=== PATIENT | female | born 1975 | race American Indian/Alaskan Native ===

== ENCOUNTER 2016-09-28 15:57 | Emergency (ER) | payer MEDICARE ==
[2016-09-28 16:45] VITALS: BP 149/101
[2016-09-28] MEDS ORDERED: MOTRIN PO ONE (19:27)
--- NOTE | 2016-09-28 19:27 | Emergency Department Report ---
ED Lower Extremity HPI - General Chief Complaint: Extremity Injury, Lower Stated Complaint: LEFT ARM PAIN/LEFT FOOT SWOLLEN/PAIN Time Seen by Provider: 09/28/16 19:04 Source: patient Mode of arrival: Ambulatory Limitations: No Limitations - History of Present Illness Initial Comments: This is a 41-year-old female that presents with left foot/ankle pain approximately 2 weeks. Patient patient stated is a diabetic and had her right hallux toe amputation that was done several years ago. Patient states that ever since the dictation of the hallux toe she started to feel pain in her foot/ ankle. Patient so she decided including swelling to the foot/ankle. Patient denies any numbness or tingling sensation in extremities. Denies shortness of breath or chest pain. Denies nausea or vomiting. Patient stated is seeing her primary care doctor for diabetes control. Patient stated she recently started dry no more than 30 minutes a day starting feeling that his symptoms. Patient denies any calf tenderness. Patient also complains left deltoid pain for several days. Patient stated she was sleeping on her left-sided residual, she has this pain are muscular deltoid area. Patient denies any trauma to the left deltoid and right foot/ankle extremity. Patient denies any numbness or tingling sensation in the upper extremities. Patient describes left foot/ankle and left deltoid pain as aching. Pain level is 8/10 for both. Patient denies any drug allergies. MD Complaint: foot injury (LEFT) -: Gradual, week(s) (2) Severity: moderate Severity scale (0 -10): 8 Improves With: NSAID Worsens With: nothing Associated Symptoms: denies: snap/pop sensation, swelling, numbness, tingling, unable to bear weight, able to partially bear weight, ambulatory - Related Data Home Medications Medication Instructions Recorded Confirmed Last Taken Insulin Aspart [NovoLOG 100 10 units SUB-Q TIDWM 10/07/14 01/31/16 01/30/16 UNITS/ML VIAL] Insulin Glargine [Lantus VIAL] 30 units SUB-Q QHS 10/07/14 01/31/16 01/29/16 HYDROcodone/ACETAMINOPHEN [Cassoday 1 tab PO Q8H PRN 01/31/16 01/31/16 01/30/16 7.5-325 mg TAB] Previous Rx's Medication Instructions Recorded Last Taken Type Oxycodone HCl/Acetaminophen 1 each PO Q6HR PRN #90 tablet 01/31/16 Unknown Rx [Percocet 7.5/325 mg] Cyclobenzaprine HCl [Flexeril 5 MG 5 mg PO TID 5 Days 09/28/16 Unknown Rx TAB] Ibuprofen [Motrin 600 MG tab] 600 mg PO Q8H PRN 3 Days 09/28/16 Unknown Rx Allergies Allergy/AdvReac Type Severity Reaction Status Date / Time No Known Drug Allergies Allergy Unknown Verified 09/28/16 16:38 ED Review of Systems ROS: Stated complaint: LEFT ARM PAIN/LEFT FOOT SWOLLEN/PAIN Other details as noted in HPI Constitutional: denies: chills, fever Eyes: denies: eye pain, eye discharge, vision change ENT: denies: ear pain, throat pain Respiratory: denies: cough, shortness of breath, wheezing Cardiovascular: denies: chest pain, palpitations Endocrine: no symptoms reported Gastrointestinal: denies: abdominal pain, nausea, diarrhea Genitourinary: denies: urgency, dysuria, discharge Musculoskeletal: denies: back pain, joint swelling, arthralgia Skin: denies: rash, lesions Neurological: denies: headache, weakness, paresthesias Psychiatric: denies: anxiety, depression Hematological/Lymphatic: denies: easy bleeding, easy bruising ED Past Medical Hx - Past Medical History Hx Hypertension: No Hx Heart Attack/AMI: No Hx Diabetes: Yes Hx Deep Vein Thrombosis: Yes Hx Pulmonary Embolism: Yes Hx Liver Disease: No Hx Renal Disease: No Hx Seizures: No Hx Asthma: No Additional medical history: MORBID OBESITY - Surgical History Additional Surgical History: x2. R BKA - Social History Smoking Status: Never Smoker Substance Use Type: Alcohol - Medications Home Medications: Home Medications Medication Instructions Recorded Confirmed Last Taken Type Insulin Aspart [NovoLOG 100 10 units SUB-Q TIDWM 10/07/14 01/31/16 01/30/16 History UNITS/ML VIAL] Insulin Glargine [Lantus VIAL] 30 units SUB-Q QHS 10/07/14 01/31/16 01/29/16 History HYDROcodone/ACETAMINOPHEN [Cassoday 1 tab PO Q8H PRN 01/31/16 01/31/16 01/30/16 History 7.5-325 mg TAB] Oxycodone HCl/Acetaminophen 1 each PO Q6HR PRN #90 tablet 01/31/16 Unknown Rx [Percocet 7.5/325 mg] Cyclobenzaprine HCl [Flexeril 5 MG 5 mg PO TID 5 Days 09/28/16 Unknown Rx TAB] Ibuprofen [Motrin 600 MG tab] 600 mg PO Q8H PRN 3 Days 09/28/16 Unknown Rx ED Physical Exam - General Limitations: No Limitations General appearance: alert, in no apparent distress - Head Head exam: Present: atraumatic, normocephalic - Eye Eye exam: Present: normal appearance, PERRL, EOMI Pupils: Present: normal accommodation - ENT ENT exam: Present: normal exam, normal orophraynx, mucous membranes moist, TM's normal bilaterally - Neck Neck exam: Present: normal inspection, full ROM. Absent: tenderness, meningismus, lymphadenopathy - Respiratory Respiratory exam: Present: normal lung sounds bilaterally. Absent: respiratory distress - Cardiovascular Cardiovascular Exam: Present: regular rate, normal rhythm. Absent: systolic murmur, diastolic murmur, rubs, gallop - GI/Abdominal GI/Abdominal exam: Present: soft, normal bowel sounds - Extremities Exam Extremities exam: Present: normal inspection, full ROM, tenderness (left foot), normal capillary refill. Absent: pedal edema, joint swelling, calf tenderness - Back Exam Back exam: Present: normal inspection, full ROM. Absent: tenderness, CVA tenderness (R), CVA tenderness (L) - Neurological Exam Neurological exam: Present: alert, oriented X3, CN II-XII intact, normal gait - Psychiatric Psychiatric exam: Present: normal affect, normal mood - Skin Skin exam: Present: warm, dry, intact, normal color. Absent: rash - Other Other exam information: Left hallux toe amputation. Denies numbness or tingling. Swelling to the left ankle. No erythema. No warmth to touch. Patient is able to move the remaining toes with no complications noted. Pedal pulses present. Denies calf tenderness. No calf tenderness or swelling. No pedal edema presents. ED Course Vital Signs 09/28/16 16:40 Temperature 98.2 F Pulse Rate 87 Respiratory 18 Rate Blood Pressure 149/101 O2 Sat by Pulse 100 Oximetry - Reevaluation(s) Reevaluation #1: 09/28/16 19:39 Patient stated has a hysterectomy. No test obtained due to hx. ED Lower Extremity MDM - Medical Decision Making Ed course: 41-year-old female that presents with left ankle/foot and left deltoid pain 1- patient received a report from 600 mg by mouth in the ED 2- x-ray of the foot/ankle: An expansile lytic lesion w/ near complete involvment of the 2nd distal phalanx. Granulomatous or a neoplastic lesion. 3- patient received x-ray results. No further questions from the patient. 4- I instructed patient to follow up with her primary care doctor in 3-5 days 5- I also instructed the importance of diabetes control 6- at the time of discharge the patient does not seem toxic or ill in appearance. No signs of any distress noted. 7- patient received Flexeril and ibuprofen for pain. I instructed patient not to use heavy machinery while taking Flexeril due to sedation 8- Wells criteria for DVT: 1 point: Low risk group of DVT. "unlikely" according to Wells' DVT studies 9- at the time of discharge the patient agrees to discharge plan and treatment. No further questions noted by the patient. Patient wasn't toxic or ill in appearance during discharge. 10- DAVID applied to left foot/ankle Critical care attestation.: If time is entered above; I have spent that time in minutes in the direct care of this critically ill patient, excluding procedure time. ED Disposition Clinical Impression: Muscle tenderness Left ankle strain Qualifiers: Encounter type: initial encounter Qualified Code(s): S96.912A - Strain of unspecified muscle and tendon at ankle and foot level, left foot, initial encounter Disposition: DISCHARGED TO HOME OR SELFCARE Is pt being admited?: No Does the pt Need Aspirin: No Condition: Stable Instructions: Ibuprofen (By mouth), Muscle Strain (ED), Ankle Exercises (GEN), RICE Therapy (ED) Additional Instructions: Follow-up with your primary care doctor in 3-5 days. Take medications as prescribed. Do not use a machine while taking Flexeril due to sedation. Rest, elevate, ice to extremity Prescriptions: Cyclobenzaprine HCl [Flexeril 5 MG TAB] 5 mg PO TID 5 Days Ibuprofen [Motrin 600 MG tab] 600 mg PO Q8H PRN 3 Days PRN Reason: Pain Referrals: PRIMARY CARE,MD [Primary Care Provider] - 3-5 Days [facility] [Outside] - 3-5 Days [facility] [Outside] - 3-5 Days
--- NOTE | 2016-09-28 20:26 | XRay Report ---
FINAL REPORT PROCEDURE: XR ANKLE 3 LT TECHNIQUE: LEFT ankle radiographs, AP, lateral, and oblique views. CPT 19893 HISTORY: Ankle pain COMPARISON: No prior studies are available for comparison. FINDINGS: Fracture (s) and/or Dislocation(s): None. Alignment: Normal. Joint space(s): Normal. Soft tissues: Diffuse soft tissue swelling is noted. Bone mineralization: Normal. Foreign bodies: None. Calcaneal spurring: Small inferior calcaneal spur is noted. IMPRESSION: No acute abnormality.
--- NOTE | 2016-09-28 20:43 | XRay Report ---
FINAL REPORT PROCEDURE: XR FOOT 3 LT TECHNIQUE: LEFT foot radiographs, AP, lateral, and oblique views. CPT 26217 HISTORY: Foot pain COMPARISON: No prior studies are available for comparison. FINDINGS: S/p amputation of great toe at the level of distal diaphysis of a cement a tarsal. An acute fracture is not identified. There is near complete lytic destruction of 2nd distal phalanx secondary to what appears to be an expansile lytic lesion. Remaining bones and joints are unremarkable IMPRESSION: An expansile lytic lesion with near complete involvement of the 2nd distal phalanx. A granulomatous or a neoplastic lesion is suspected. MRI may be recommended for further evaluation.
== END 2016-09-28 21:25 | disposition home or self-care (01) ==
LOC: ED 15:57
DX: S96.912A Strain of unspecified muscle and tendon at ankle and foot level, left foot, initial encounter (principal); E11.9 Type 2 diabetes mellitus without complications; E66.01 Morbid (severe) obesity due to excess calories; Z86.718 Personal history of other venous thrombosis and embolism; Z86.711 Personal history of pulmonary embolism; Z79.4 Long term (current) use of insulin; X58.XXXA Exposure to other specified factors, initial encounter; Y93.89 Activity, other specified; Y99.8 Other external cause status; Y92.89 Other specified places as the place of occurrence of the external cause
CPT/HCPCS: 99283

== ENCOUNTER 2016-12-29 15:55 | Outpatient (CLI) | payer MEDICARE ==
--- NOTE | 2016-12-30 10:51 | XRay Report ---
RIGHT TIBIA/FIBULA: History: Pain [id number]-[id number]-tics amputation changes are identified. There is no evidence for fracture, bone lesion or bony destruction. Mild heterotopic calcifications are noted. IMPRESSION: Surgical changes as described. No acute bony abnormality.
== END 2016-12-29 15:56 | disposition home or self-care (01) ==
LOC: XRAY 15:55
PROVIDERS: ATTEND Surgery Vascular Surgery
DX: T87.89 Other complications of amputation stump (principal); M25.861 Other specified joint disorders, right knee; E11.9 Type 2 diabetes mellitus without complications; D64.9 Anemia, unspecified

== ENCOUNTER 2017-05-07 08:13 | Day surgery (SDC) | payer MEDICARE ==
[~2017-05-07 08:13] MED LIST: ANCEF/STERILE WATER 2 GM/20 ML 2 GM/20 ML SYRINGE IV NR; NACL 0.9% 1000 ML 1,000 ML IV SCH
--- NOTE | 2017-05-07 09:11 | Anesthesia Consultation ---
Anesthesia Consult and Med Hx Date of service: 05/07/17 - Airway Anesthetic Teeth Evaluation: Good ROM Head & Neck: Adequate Mental/Hyoid Distance: Adequate Mallampati Class: Class II Intubation Access Assessment: Probably Good - Pulmonary Exam CTA: Yes - Cardiac Exam Cardiac Exam: RRR - Pre-Operative Health Status ASA Pre-Surgery Classification: ASA3 Proposed Anesthetic Plan: General - Pulmonary Hx Smoking: Yes (former, quit 6 yrs ago, 1PPD) Hx Asthma: No Hx Sleep Apnea: No - Cardiovascular System Hx Cardia Arrhythmia: No Hx Peripheral Vascular Disease: Yes - Central Nervous System Hx Seizures: No CVA: No Hx Psychiatric Problems: No - Gastrointestinal Hx Gastroesophageal Reflux Disease: No - Endocrine Hx Insulin Dependent Diabetes: Yes Hx Thyroid Disease: No - Hematic Hx Anemia: Yes - Other Systems Hx Alcohol Use: Yes (occas) Hx Cancer: No Hx Obesity: Yes (morbid)
--- NOTE | 2017-05-07 09:11 | Anesthesia Day of Surgery ---
Anesthesia Day of Surgery - Day of Surgery Patient Examined: Yes Patient H&P Reviewed: Yes Patient is NPO: Yes
[2017-05-07] MEDS ORDERED: DILAUDID IV PRN (09:12)
[2017-05-07] MEDS ORDERED: ZOFRAN IV PRN (09:12)
[2017-05-07] MEDS ORDERED: PEPCID PO NR (10:00)
[2017-05-07] MEDS ORDERED: VERSED IV NR (10:00)
[2017-05-07 10:01] LABS: Basophils % (Auto) 0.4 % (0.0-1.8); Eosinophils # (Auto) 0.1 K/mm3 (0.0-0.4); Hematocrit 37.9 % (30.3-42.9); Hemoglobin 12.5 gm/dl (10.1-14.3); Lymphocytes # (Auto) 1.4 K/mm3 (1.2-5.4); Lymphocytes % (Auto) 26.2 % (13.4-35.0); Mean Corpuscular HGB Conc 33 % (30-34); Mean Corpuscular Hemoglobin 30 pg (28-32); Mean Corpuscular Volume 91 fl (79-97); Monocytes # (Auto) 0.5 K/mm3 (0.0-0.8); Monocytes % (Auto) 9.1 % (0.0-7.3); Platelet Count 223 K/mm3 (140-440); Red Blood Count 4.16 M/mm3 (3.65-5.03); Red Cell Distribution Width 13.4 % (13.2-15.2)
[2017-05-07 10:15] LABS: INR 0.91 (0.87-1.13)
[2017-05-07 10:19] LABS: BUN/Creatinine Ratio 27; Blood Urea Nitrogen 16 mg/dL (7-17); Calcium 8.7 mg/dL (8.4-10.2); Hemolysis Index 31
[2017-05-07] MEDS ORDERED: DIPRIVAN 10 MG/ML IV ONE (10:23)
[2017-05-07] MEDS ORDERED: DILAUDID ONE (10:24)
[2017-05-07] MEDS ORDERED: XYLOCAINE MPF 2% ONE (10:24)
[2017-05-07] MEDS ORDERED: ZOFRAN ONE (10:33)
[2017-05-07] MEDS ORDERED: SUBLIMAZE ONE (10:42)
[2017-05-07] MEDS ORDERED: NACL 0.9% IR ONE (10:44)
[2017-05-07] MEDS ORDERED: MARCAINE 0.5% INFILTRATI ONE (11:13)
[2017-05-07] MEDS ORDERED: MARCAINE 0.5% 30 ML INFILTRATI ONE (11:14)
[2017-05-07] MEDS ORDERED: NACL 0.9% 1000 ML 1,000 ML ONE (11:47)
[2017-05-07] MEDS ORDERED: TORADOL ONE (12:06)
--- NOTE | 2017-05-07 12:10 | Short Stay Summary ---
Short Stay Documentation Date of service: 05/07/17 Narrative H&P: See H&P - History H&P: obtained from office - Allergies and Medications Current Medications: Allergies No Known Drug Allergies Allergy (Verified 05/03/17 09:36) Unknown Home Medications Medication Instructions Recorded Confirmed Last Taken Type Insulin Aspart [NovoLOG 100 10 units SUB-Q TIDWM 10/07/14 05/07/17 05/06/17 History UNITS/ML VIAL] Insulin Glargine [Lantus VIAL] 30 units SUB-Q QHS 10/07/14 05/03/17 01/29/16 History Metformin HCl [Metformin HCl] 1,000 mg PO BID 05/03/17 05/03/17 Unknown History Active Medications Hydromorphone HCl (Dilaudid) 0.5 mg IV Q10MIN PRN PRN Reason: Pain , Severe (7-10) Stop: 05/07/17 13:00 Cefazolin Sodium (Ancef/Sterile Water 2 Gm/20 Ml) 2 gm in 20 mls @ 80 mls/hr IV PREOP NR PRN Reason: Protocol Stop: 05/07/17 23:00 Sodium Chloride (Nacl 0.9% 1000 Ml) 1,000 mls @ 42 mls/hr IV DIRECT NARCISA Last Admin: 05/07/17 09:35 Dose: 42 mls/hr Ketorolac Tromethamine (Toradol) 30 mg IV ONCE PRN PRN Reason: Pain, Moderate (4-6) Stop: 05/07/17 12:30 Midazolam HCl (Versed) 2 mg IV PREOP NR Stop: 05/07/17 23:59 Last Admin: 05/07/17 09:35 Dose: 2 mg - Brief post op/procedure progress note Date of procedure: 05/07/17 Pre-op diagnosis: Chronic Right Below-Knee Amputation Pain Post-op diagnosis: same Procedure: Revision of Right Below-Knee Amputation Anesthesia: GETA Surgeon: NIKI MAJOR Estimated blood loss: 50-100ml Pathology: list (bone and soft tissue sent to pathology) Specimen disposition: to lab Condition: stable - Disposition Condition at discharge: Good Disposition: DC-[id number] TO HOME OR SELFCARE Short Stay Discharge Plan Activity: other (do not use prosthesis until incision in completely healed) Weight Bearing Status: Non-Weight Bearing (Rigth BKA Stump) Wound: remove dressing (24 hours), other (Okay to wash the wound with soap and water but do not soak in water) Follow up with: NIKI MAJOR MD [Staff Physician] - 14 Days Prescriptions: Oxycodone HCl/Acetaminophen [Percocet 7.5/325 mg] 1 each PO Q6HR PRN #60 tablet PRN Reason: Pain
[2017-05-07] MEDS ORDERED: TORADOL IV PRN (12:15)
--- NOTE | 2017-05-07 12:16 | Post Anesthesia Evaluation ---
- Post Anesthesia Evaluation Patient Participated: Yes Airway Patent: Yes Stable Respiratory Function: Yes Nausea/Vomiting: No Temp > 96.8F: Yes Pain Manageable: Yes Adequeate Hydration: Yes Anesthesia Complications: No Block Receding Appropriately: Not Applicable Patient on Ventilator: No
--- NOTE | 2017-05-07 12:20 | Operative Report ---
Operative Report Operative Report: Date of Procedure: 05/07/2017 Pre-operative Diagnosis: Chronic Right Below-Knee Amputation Pain Post-operative Diagnosis: Same Procedure(s): 1. Revision of Right Below-Knee Amputation Surgeon: John Archibald M.D. Pencils Washer: None Anesthesia: Gen. Endotracheal Anesthesia EBL: 100 mL Counts: Correct Complications: None Condition: Stable Findings: The tibia was resected medially and anteriorly to a more normal size and contour. Specimen: Right below-knee amputation bone and soft tissue sent to pathology. Indication: The patient is a 41-year-old female with history of diabetes mellitus and a right below-knee amputation that has complained of chronic right BKA stump pain. She had a xray of the stump there revealed ossification of the tissue surrounding the distal end of the tibia. This resulted in pain and tenderness at the distal end of the stump especially when wearing the prosthesis. She is in need of revision. She was given the risk, benefits, and alternative procedures and consented to the procedure. Description of Procedure: The patient was brought to the operating room and laid in supine position. After general endotracheal anesthesia was achieved her right leg was prepped and draped in normal sterile fashion. A longitudinal incision was created on the distal leg centered over the tibia. Cautery was used to carry the incision down to the tibia and the periosteum was entered and elevated using the periosteal elevator. An oscillating saw was then used to bevel the anterior surface of the tibia. Cautery was used to achieve hemostasis on the anterior surface of the exposed tibia. Cautery was then used to expose the ossified tissue medial to the tibia. Once the large area of bone was exposed the oscillating saw was used to transect this bone. The file was used to smooth all edges. The wound was copiously irrigated and then hemostasis was achieved with a combination of direct pressure, cautery, and suture ligation. Once hemostasis was achieved the wound was anesthetized with Marcaine and closed in 3 layers using 2-0 Vicryls, in an interrupted fashion, to reapproximate the deep layers, 3-0 Vicryl in running fashion the deep dermal layers and 4-0 Monocryl in a running fashion subcuticular layers. The skin was then dressed with Dermabond. The leg was then dressed with a loosely wrapped Kerlix and a 4 inch Ashutosh bandage. The patient tolerated the procedure well. All sponge, needle , and his returns were correct. The patient was taken to the recovery area in stable condition.
[2017-05-07 13:19] VITALS: BP 134/87
[2017-05-07] MEDS ORDERED: BENADRYL ONE (13:37)
== END 2017-05-07 08:14 | disposition home or self-care (01) ==
LOC: OR 08:13
PROVIDERS: ATTEND Surgery Vascular Surgery
DX: T87.89 Other complications of amputation stump (principal); E11.51 Type 2 diabetes mellitus with diabetic peripheral angiopathy without gangrene; E66.01 Morbid (severe) obesity due to excess calories; Z68.43 Body mass index [BMI] 50.0-59.9, adult; Z79.01 Long term (current) use of anticoagulants; Z79.899 Other long term (current) drug therapy; Z79.4 Long term (current) use of insulin; Z87.891 Personal history of nicotine dependence; Z98.890 Other specified postprocedural states; Y83.6 Removal of other organ (partial) (total) as the cause of abnormal reaction of the patient, or of later complication, without mention of misadventure at the time of the procedure
CPT/HCPCS: 27886; 36415; 80048; 81025; 82962; 85025; 85610; 88304; 88311; J0690; J1170; J1200; J1885; J2250; J2405; J2704; J3010; J7030; 88305; J1815

== ENCOUNTER 2017-10-16 10:17 | Inpatient (IN) | payer MEDICARE ==
[~2017-10-16 10:17] MED LIST changes: +DILAUDID IV PRN; -NACL 0.9% 1000 ML 1,000 ML IV SCH; +PERCOCET 5/325 PO PRN; +VERSED IV NR; +ZOFRAN IV PRN
[2017-10-16] MEDS: NACL 0.9% 1000 ML 1,000 ML IV SCH ×2 (12:35→22:15)
[2017-10-16] MEDS ORDERED: HumuLIN R IV SCH (12:52)
--- NOTE | 2017-10-16 12:54 | Anesthesia Day of Surgery ---
Anesthesia Day of Surgery - Day of Surgery Patient Examined: Yes Patient H&P Reviewed: Yes Patient is NPO: Yes
--- NOTE | 2017-10-16 12:54 | Anesthesia Consultation ---
Anesthesia Consult and Med Hx Date of service: 10/16/17 - Airway Anesthetic Teeth Evaluation: Poor ROM Head & Neck: Adequate Mental/Hyoid Distance: Adequate Mallampati Class: Class II Intubation Access Assessment: Probably Good - Pulmonary Exam CTA: Yes - Cardiac Exam Cardiac Exam: RRR - Pre-Operative Health Status ASA Pre-Surgery Classification: ASA3 Proposed Anesthetic Plan: General - Pulmonary Hx Smoking: Yes (former, quit 6 yrs ago, 1PPD) - Cardiovascular System Hx Cardia Arrhythmia: No Hx Peripheral Vascular Disease: Yes - Central Nervous System Hx Psychiatric Problems: No - Gastrointestinal Hx Gastroesophageal Reflux Disease: No - Endocrine Hx Insulin Dependent Diabetes: Yes Hx Thyroid Disease: No - Hematic Hx Anemia: Yes - Other Systems Hx Alcohol Use: Yes (occas) Hx Cancer: No Hx Obesity: Yes
[2017-10-16 13:17] LABS: Basophils % (Auto) 0.3 % (0.0-1.8); Eosinophils # (Auto) 0.1 K/mm3 (0.0-0.4); Eosinophils % (Auto) 0.9 % (0.0-4.3); Hematocrit 38.4 % (30.3-42.9); Hemoglobin 12.8 gm/dl (10.1-14.3); Lymphocytes # (Auto) 1.5 K/mm3 (1.2-5.4); Lymphocytes % (Auto) 16.5 % (13.4-35.0); Mean Corpuscular HGB Conc 33 % (30-34); Mean Corpuscular Hemoglobin 30 pg (28-32); Mean Corpuscular Volume 89 fl (79-97); Monocytes # (Auto) 0.6 K/mm3 (0.0-0.8); Monocytes % (Auto) 7.2 % (0.0-7.3); Platelet Count 245 K/mm3 (140-440); Red Cell Distribution Width 13.9 % (13.2-15.2)
[2017-10-16 13:35] LABS: BUN/Creatinine Ratio 20; Blood Urea Nitrogen 10 mg/dL (7-17); Calcium 8.8 mg/dL (8.4-10.2); Hemolysis Index 42
[2017-10-16] MEDS ORDERED: DIPRIVAN 10 MG/ML IV ONE (15:50)
[2017-10-16] MEDS ORDERED: XYLOCAINE MPF 2% ONE (15:51)
[2017-10-16] MEDS ORDERED: MARCAINE 0.5% INFILTRATI ONE (17:08)
[2017-10-16] MEDS ORDERED: MARCAINE 0.5% 30 ML INFILTRATI ONE (17:27)
[2017-10-16] MEDS ORDERED: ZOFRAN ONE (17:29)
--- NOTE | 2017-10-16 17:59 | Operative Report ---
Operative Report Operative Report: Date of procedure: 10/16/2017 Pre-operative diagnosis: Nonhealing Left Diabetic Foot Wound Post-operative diagnosis: Same Procedure(s): 1. Left Transmetatarsal Amputation Surgeon: John Archibald MD Mold Cooler: None Anesthesia: General Endotracheal Anesthesia EBL: Minimal Counts: Correct Complications: None Condition: Stable Findings: All tissue appeared viable and healthy with excellent bleeding tissue and no evidence of infection. 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 Despite local wound care the toes continue to deteriorate. She had noninvasive arterial studies that demonstrate adequate flow having the toes continued to do poorly and it was felt that she would benefit from a transmetatarsal dictation to prevent proximal extension of her infection. She was given the risk, benefits, and alternative procedures and consented to the procedure. Description of Procedure: The patient was brought to the operating room and laid in supine position after general endotracheal anesthesia was achieved was prepped and draped in normal sterile fashion. A transverse incision was then created along the midportion of the metatarsals and carried distally to create a posterior flap. Electrocautery was used to take the dissection down to the metatarsals and the periosteum was then elevated on each metatarsal. The oscillating saw was then used to transect each metatarsal and then electrocautery was used to divide the remaining soft tissue and the specimen was passed off. Cautery was then used to achieve hemostasis within the wound and then a rasp was used to smooth each edge of the bone. The wound was copiously irrigated with saline and then anesthetized with Exparel. The wound was then closed in 2 layers using 2-0 Vicryl to reapproximate the deep dermal layer and kendall in the skin. The wound was then dressed with Xeroform gauze, fluffs, Kerlix, and an Ashutosh bandage. The patient tolerated procedure well all sponge needle and instrument counts correct, the patient was taken to recovery in stable condition.
[2017-10-16] MEDS ORDERED: TYLENOL PO PRN (18:00)
[2017-10-16] MEDS ORDERED: ZOFRAN IV PRN (18:00)
[2017-10-16] MEDS ORDERED: NORCO 5/325 PO PRN (18:00)
[2017-10-16] MEDS ORDERED: SODIUM CHLORIDE FLUSH SYRINGE 10 ML IV PRN (18:00)
[2017-10-16] MEDS ORDERED: NON-FORMULARY (Oxycodone Hcl/Acetaminophen [Percocet 7.5/325 Mg] 1 EACH) PO PRN (18:03)
[2017-10-16] MEDS ORDERED: ROXICODONE PO PRN (18:16)
[2017-10-16] MEDS ORDERED: PERCOCET 5/325 PO PRN (18:16)
[2017-10-16 19:15] LABS: Basophils % (Auto) 0.3 % (0.0-1.8); Eosinophils # (Auto) 0.1 K/mm3 (0.0-0.4); Eosinophils % (Auto) 1.2 % (0.0-4.3); Hematocrit 39.5 % (30.3-42.9); Lymphocytes # (Auto) 1.7 K/mm3 (1.2-5.4); Lymphocytes % (Auto) 23.1 % (13.4-35.0); Mean Corpuscular HGB Conc 33 % (30-34); Mean Corpuscular Hemoglobin 30 pg (28-32); Mean Corpuscular Volume 91 fl (79-97); Monocytes # (Auto) 0.5 K/mm3 (0.0-0.8); Monocytes % (Auto) 7.3 % (0.0-7.3); Platelet Count 258 K/mm3 (140-440); Red Blood Count 4.36 M/mm3 (3.65-5.03); Red Cell Distribution Width 13.5 % (13.2-15.2)
[2017-10-16] MEDS ORDERED: LANTUS SUB-Q SCH (22:00)
[2017-10-16] MEDS ORDERED: NON-FORMULARY (Metformin Hcl [Metformin Hcl] 1,000 MG) PO SCH (22:00)
[2017-10-16] MEDS: HumaLOG SUB-Q SCH (22:18)
[2017-10-16] MEDS: MORPHINE IV PRN (22:20)
[2017-10-16] MEDS: SODIUM CHLORIDE FLUSH SYRINGE 10 ML IV SCH (22:20)
[2017-10-17] MEDS: HumaLOG SUB-Q SCH ×2 (07:14→13:35)
[2017-10-17] MEDS ORDERED: GLUCOPHAGE PO SCH (08:00)
[2017-10-17] MEDS ORDERED: NON-FORMULARY (Insulin Aspart 10 UNITS) SUB-Q SCH (08:00)
[2017-10-17] MEDS: MORPHINE IV PRN (10:46)
[2017-10-17] MEDS: SODIUM CHLORIDE FLUSH SYRINGE 10 ML IV SCH (10:51)
[2017-10-17] MEDS ORDERED: HumaLOG SUB-Q SCH (12:00)
--- NOTE | 2017-10-17 16:04 | Progress Note ---
Assessment and Plan Pt doing well. Bandages changed, and wounds look good. Okay to d/c home. D/c instructions given at the bedside. Pt to f/u in 2 wks. Subjective Date of service: 10/17/17 Interval history: Pt awake and alert. Incisional discomfort well tolerated with analgesics. Objective - Constitutional Vitals: Vital Signs - 12hr 10/17/17 10/17/17 10/17/17 04:18 04:50 07:14 Temperature 98.7 F 98.5 F Pulse Rate 92 H 85 Respiratory 20 18 Rate Blood Pressure 111/65 114/69 O2 Sat by Pulse 98 98 Oximetry 10/17/17 10/17/17 11:16 12:26 Temperature 99.3 F Pulse Rate 82 Respiratory 18 18 Rate Blood Pressure 132/81 O2 Sat by Pulse 97 Oximetry General appearance: Present: no acute distress - EENT Eyes: EOM intact ENT: hearing intact - Neck Neck: supple - Respiratory Respiratory effort: normal Extremities: abnormal (LLE TMA. Incision intact, kendall in place without erythema or drainage) - Neurologic Neurologic: no focal deficits - Psychiatric Psychiatric: appropriate mood/affect, intact judgment & insight, cooperative - Labs CBC & Chem 7: 10/16/17 18:54 10/16/17 12:35 Labs: Abnormal lab results 10/16/17 10/16/17 10/17/17 Range/Units 18:01 21:16 05:34 POC Glucose 218 H 278 H 342 H (70-105) 10/17/17 Range/Units 13:01 POC Glucose 306 H (70-105)
--- NOTE | 2017-10-17 16:09 | Short Stay Summary ---
Short Stay Documentation Date of service: 10/17/17 - Allergies and Medications Current Medications: Allergies No Known Drug Allergies Allergy (Verified 10/12/17 13:13) Unknown Home Medications Medication Instructions Recorded Confirmed Last Taken Type Insulin Aspart [NovoLOG 100 10 units SUB-Q TIDWM 10/07/14 10/12/17 10/15/17 History UNITS/ML VIAL] Insulin Glargine [Lantus VIAL] 30 units SUB-Q QHS 10/07/14 10/16/17 10/14/17 History Metformin HCl 1,000 mg PO BID 05/03/17 10/12/17 10/15/17 History Oxycodone HCl/Acetaminophen 1 each PO Q6HR PRN #60 tablet 05/07/17 10/12/17 Rx [Percocet 7.5/325 mg] Active Medications Acetaminophen (Tylenol) 650 mg PO Q4H PRN PRN Reason: Pain MILD(1-3)/Fever >100.5/OHARA Acetaminophen/Hydrocodone Bitart ([place] 5/325) 2 each PO Q6H PRN PRN Reason: Pain, Moderate (4-6) Sodium Chloride (Nacl 0.9% 1000 Ml) 1,000 mls @ 42 mls/hr IV DIRECT [facility] Last Admin: 10/16/17 22:15 Dose: 42 mls/hr Insulin Glargine (Lantus) 30 units SUB-Q QHS [facility] Last Admin: 10/16/17 22:38 Dose: 30 units Insulin Human Lispro (Humalog) 0 unit SUB-Q ACHS [facility]; Protocol Last Admin: 10/17/17 13:35 Dose: 8 unit Insulin Human Lispro (Humalog) 10 unit SUB-Q [facility] Last Admin: 10/17/17 13:35 Dose: 10 unit Metformin HCl (Glucophage) 1,000 mg PO BIDDIAB [facility] Last Admin: 10/17/17 10:45 Dose: 1,000 mg Morphine Sulfate (Morphine) 2 mg IV Q4H PRN PRN Reason: Pain, Moderate (4-6) Last Admin: 10/17/17 10:46 Dose: 2 mg Ondansetron HCl (Zofran) 4 mg IV Q8H PRN PRN Reason: Nausea And Vomiting Oxycodone HCl (Roxicodone) 2.5 mg PO Q6H PRN PRN Reason: Pain, Moderate (4-6) Oxycodone/Acetaminophen (Percocet 5/325) 1 tab PO Q6H PRN PRN Reason: Pain, Moderate (4-6) Sodium Chloride (Sodium Chloride Flush Syringe 10 Ml) 10 ml IV BID [facility] Last Admin: 10/17/17 10:51 Dose: 10 ml Sodium Chloride (Sodium Chloride Flush Syringe 10 Ml) 10 ml IV PRN PRN PRN Reason: LINE FLUSH - Physical exam Extremities: abnormal (LLE TMA. Incision intact, kendall in place without erythema or drainage) - Brief post op/procedure progress note Procedure: Operative Report Operative Report: Date of procedure: 10/16/2017 Pre-operative diagnosis: Nonhealing Left Diabetic Foot Wound Post-operative diagnosis: Same Procedure(s): 1. Left Transmetatarsal Amputation Surgeon: John Archibald MD Bulk Picker: None Anesthesia: General Endotracheal Anesthesia EBL: Minimal Counts: Correct Complications: None Condition: Stable Findings: All tissue appeared viable and healthy with excellent bleeding tissue and no evidence of infection. 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 Despite local wound care the toes continue to deteriorate. She had noninvasive arterial studies that demonstrate adequate flow having the toes continued to do poorly and it was felt that she would benefit from a transmetatarsal dictation to prevent proximal extension of her infection. She was given the risk, benefits, and alternative procedures and consented to the procedure. - Disposition Condition at discharge: Stable Disposition: DC-01 TO HOME OR SELFCARE - Discharge Diagnoses (1) Diabetic foot infection Status: Acute Short Stay Discharge Plan Activity: advance as tolerated Weight Bearing Status: Partial Weight Bearing (avoid Left fore foot pressure. Use Heel wt bearing shoe to offload pressure from forefoot.) Diet: diabetic Wound: keep clean and dry Follow up with: JOHN ARCHIBALD MD [Staff Physician] - 14 Days
[2017-10-17 17:19] VITALS: BP 136/82
== END 2017-10-17 18:28 | disposition home health service (06) | DRG 240 ==
LOC: OR 10:17 → 3B-SURG 18:26
PROVIDERS: ADMIT Surgery Vascular Surgery; ATTEND Surgery Vascular Surgery
PROC: 0Y6N0ZB Detachment at Left Foot, Partial 2nd Ray, Open Approach (ICD-10-PCS; principal; 2017-10-16)
PROC: 0Y6N0ZC Detachment at Left Foot, Partial 3rd Ray, Open Approach (ICD-10-PCS; 2017-10-16)
PROC: 0Y6N0ZD Detachment at Left Foot, Partial 4th Ray, Open Approach (ICD-10-PCS; 2017-10-16)
PROC: 0Y6N0ZF Detachment at Left Foot, Partial 5th Ray, Open Approach (ICD-10-PCS; 2017-10-16)
DX: E11.51 Type 2 diabetes mellitus with diabetic peripheral angiopathy without gangrene (principal); L97.429 Non-pressure chronic ulcer of left heel and midfoot with unspecified severity; E11.621 Type 2 diabetes mellitus with foot ulcer; L03.032 Cellulitis of left toe; E66.9 Obesity, unspecified; Z89.511 Acquired absence of right leg below knee; Z87.891 Personal history of nicotine dependence; Z79.4 Long term (current) use of insulin
CPT/HCPCS: 36415; 80048; 82962; 85025; 88307; 88311; J0690; J1815; J2250; J2270; J2405; J2704; J7030

== ENCOUNTER 2017-11-20 09:31 | Day surgery (SDC) | payer MEDICARE ==
[~2017-11-20 09:31] MED LIST changes: -DILAUDID IV PRN; +NACL 0.9% 1000 ML 1,000 ML IV SCH; -PERCOCET 5/325 PO PRN; -ZOFRAN IV PRN
[2017-11-20] MEDS ORDERED: NACL BACTERIOSTATIC INFILTRATI ONE (11:21)
[2017-11-20 12:34] LABS: Basophils % (Auto) 0.2 % (0.0-1.8); Eosinophils # (Auto) 0.1 K/mm3 (0.0-0.4); Eosinophils % (Auto) 1.2 % (0.0-4.3); Hematocrit 33.6 % (30.3-42.9); Lymphocytes # (Auto) 1.8 K/mm3 (1.2-5.4); Lymphocytes % (Auto) 21.5 % (13.4-35.0); Mean Corpuscular HGB Conc 33 % (30-34); Mean Corpuscular Hemoglobin 29 pg (28-32); Mean Corpuscular Volume 89 fl (79-97); Monocytes # (Auto) 0.6 K/mm3 (0.0-0.8); Monocytes % (Auto) 6.8 % (0.0-7.3); Platelet Count 348 K/mm3 (140-440); Red Cell Distribution Width 13.4 % (13.2-15.2)
--- NOTE | 2017-11-20 12:39 | Anesthesia Consultation ---
Anesthesia Consult and Med Hx - Airway Anesthetic Teeth Evaluation: Poor ROM Head & Neck: Adequate Mental/Hyoid Distance: Adequate Mallampati Class: Class II Intubation Access Assessment: Probably Good - Pulmonary Exam CTA: Yes - Cardiac Exam Cardiac Exam: RRR - Pre-Operative Health Status ASA Pre-Surgery Classification: ASA2 Proposed Anesthetic Plan: General - Pulmonary Hx Smoking: Yes (former, quit 6 yrs ago) - Cardiovascular System Hx Cardia Arrhythmia: No Hx Peripheral Vascular Disease: Yes - Central Nervous System Hx Psychiatric Problems: No - Gastrointestinal Hx Gastroesophageal Reflux Disease: No - Endocrine Hx Insulin Dependent Diabetes: Yes Hx Thyroid Disease: No - Hematic Hx Anemia: Yes - Other Systems Hx Alcohol Use: Yes (occas) Hx Cancer: No Hx Obesity: Yes
[2017-11-20] MEDS ORDERED: SUBLIMAZE IV PRN (12:40)
[2017-11-20] MEDS ORDERED: ZOFRAN IV PRN (12:40)
--- NOTE | 2017-11-20 12:40 | Anesthesia Day of Surgery ---
Anesthesia Day of Surgery - Day of Surgery Patient Examined: Yes Patient H&P Reviewed: Yes Patient is NPO: Yes Beta Blockers: No Cardiac Clearance: No Pulmonary Clearance: No
[2017-11-20 12:51] LABS: BUN/Creatinine Ratio 18; Blood Urea Nitrogen 9 mg/dL (7-17); Calcium 8.9 mg/dL (8.4-10.2); Hemolysis Index 10
[2017-11-20] MEDS ORDERED: NORCO 10/325 PO ONE (13:00)
[2017-11-20] MEDS ORDERED: LACTATED RINGERS 1,000 ML IV SCH (13:00)
[2017-11-20] MEDS ORDERED: DIPRIVAN 10 MG/ML IV ONE (13:32)
[2017-11-20] MEDS ORDERED: XYLOCAINE MPF 2% ONE (13:32)
[2017-11-20] MEDS ORDERED: SUBLIMAZE ONE (13:32)
[2017-11-20] MEDS ORDERED: NACL 0.9% IR ONE (14:58)
[2017-11-20] MEDS ORDERED: ZOFRAN ONE (15:02)
--- NOTE | 2017-11-20 15:20 | Short Stay Summary ---
Short Stay Documentation Date of service: 11/20/17 Narrative H&P: See H&P - History H&P: obtained from office - Allergies and Medications Current Medications: Allergies No Known Drug Allergies Allergy (Verified 11/16/17 13:40) Unknown Home Medications Medication Instructions Recorded Confirmed Last Taken Type Insulin Aspart [NovoLOG 100 10 units SUB-Q TIDWM 10/07/14 11/20/17 11/19/17 20: 00 History UNITS/ML VIAL] 10 UNITS Insulin Glargine [Lantus VIAL] 30 units SUB-Q QHS 10/07/14 11/20/17 11/19/17 20: 00 History 15 UNITS Metformin HCl 1,000 mg PO BID 05/03/17 11/20/17 11/19/17 History Oxycodone HCl/Acetaminophen 1 each PO Q6HR PRN #40 tablet 10/17/17 11/20/17 Rx [Percocet 10/325 mg] Active Medications Fentanyl (Sublimaze) 50 mcg IV Q5MIN PRN PRN Reason: Pain , Severe (7-10) Stop: 11/20/17 18:00 Cefazolin Sodium (Ancef/Sterile Water 2 Gm/20 Ml) 2 gm in 20 mls @ 80 mls/hr IV PREOP NR; Protocol Stop: 11/20/17 23:59 Lactated Ringer's (Lactated Ringers) 1,000 mls @ 100 mls/hr IV DIRECT [facility] Midazolam HCl (Versed) 2 mg IV PREOP NR Stop: 11/20/17 23:59 Ondansetron HCl (Zofran) 4 mg IV ONCE PRN PRN Reason: Nausea And Vomiting - Brief post op/procedure progress note Date of procedure: 11/20/17 Pre-op diagnosis: Nonhealing Left Transmetatarsal Amputation Post-op diagnosis: same Procedure: 1. Excisional Debridement of Skin and Soft Tissue and Bone of Left Non-Healing Left Transmetatarsal Amputation 2. Wound VAC Placement (Wound Measures 12 x 8 x 3 cm) Anesthesia: FAHADA Surgeon: NIKI MAJOR Estimated blood loss: minimal Pathology: list (skin-muscle bone and soft tissue from left transmetatarsal amputation) Specimen disposition: discarded Condition: stable - Disposition Condition at discharge: Good Disposition: DC- TO HOME OR SELFCARE Short Stay Discharge Plan Activity: other (ambulate with Darco heel weightbearing boot on left foot at all times) Wound: other (wound VAC changes per home health) Follow up with: NIKI MAJOR MD [Staff Physician] - 14 Days Prescriptions: HYDROcodone/APAP 7.5-325 [[place] 7.5/325] 1 each PO Q6HR PRN #40 tablet PRN Reason: Pain
--- NOTE | 2017-11-20 15:23 | Operative Report ---
Operative Report Operative Report: Date of Procedure: 11/20/2017 Pre-operative Diagnosis: Nonhealing Left Transmetatarsal Amputation Post-operative Diagnosis: Same Procedure(s): 1. Excisional Debridement of Skin and Soft Tissue and Bone of Left Non-Healing Left Transmetatarsal Amputation 2. Wound VAC Placement (Wound Measures 12 x 8 x 3 cm) Surgeon: John Archibald M.D. Backroom Associate: None Anesthesia: Gen. endotracheal anesthesia EBL: Minimal Counts: Correct Complications: None Condition: Stable Findings: Necrotic tissue on the plantar lateral image of the wound with exposure of the fifth metatarsal requiring further debridement of the fifth metatarsal. Specimen: Skin muscle and soft tissue as well as a portion of the fifth metatarsal sent to pathology. 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 The transmetatarsal amputation was initially closed however she presented to the office with dehiscence of the wound required debridement and wound VAC placement and now requires further debridement secondary to necrosis of the plantar flap. She was given the risks , benefits, and alternative procedures and has consented to the procedure. Description of Procedure: The patient was brought to the operating room and laid in supine position. After general endotracheal anesthesia was achieved for left foot was prepped and draped in normal sterile fashion. The entire plantar flap was necrosed and nonviable. Curved Mayos were used to transect the posterior flap. The edge of the flap was healthy with excellent bleeding tissue. There was fibrinous exudate along the exposed surface of the open amputation which was sharply debrided with a curet. This was debrided to healthy bleeding tissue. Upon exploration of the remainder of the wound it was discovered that there was necrotic tissue along the plantar lateral surface of the wound which was sharply debrided with curved Mayos requiring debridement of the skin as well as muscle and soft tissue and tendon. Upon debriding this to healthy tissue the fifth metatarsal was now partially exposed and there was no way to cover the exposed portion of the bone. This portion of the bone was not transected with a oscillating saw. The wound was then copiously irrigated and again examined and was determined there was no further nonviable tissue. The VAC was then placed sterilely and the seal was obtained. It was then wrapped with a loose Kerlix. The patient tolerated the procedure well. All sponge, needle, estimate counts were correct. The patient was taken to the recovery area in stable condition.
[2017-11-20] MEDS ORDERED: HumuLIN R ONE (15:29)
[2017-11-20] MEDS ORDERED: HumuLIN R IV ONE (15:35)
[2017-11-20 16:17] VITALS: BP 128/81
== END 2017-11-20 16:45 | disposition home or self-care (01) ==
LOC: OR 09:31
PROVIDERS: ATTEND Surgery Vascular Surgery
DX: T87.81 Dehiscence of amputation stump (principal); E11.51 Type 2 diabetes mellitus with diabetic peripheral angiopathy without gangrene; K21.9 Gastro-esophageal reflux disease without esophagitis; E66.9 Obesity, unspecified; Z98.890 Other specified postprocedural states; Z89.511 Acquired absence of right leg below knee; Z87.891 Personal history of nicotine dependence; Z79.4 Long term (current) use of insulin
CPT/HCPCS: 11044; 36415; 80048; 81025; 82962; 85025; J0690; J2405; J2704; J3010; J7030; J1815

== ENCOUNTER 2017-12-20 09:49 | Outpatient (CLI) | payer MEDICARE ==
[2017-12-20] MEDS ORDERED: XYLOCAINE TOPICAL 4% TP ONE ×2 (10:06→14:55)
[2017-12-20] MEDS ORDERED: DAKIN'S FULL STRENGTH ONE (10:17)
[2017-12-20] MEDS ORDERED: DAKIN'S FULL STRENGTH TP ONE (14:55)
== END 2017-12-20 09:50 | disposition home or self-care (01) ==
LOC: WOUND 09:49
PROVIDERS: ATTEND Surgery
DX: T87.89 Other complications of amputation stump (principal); E11.40 Type 2 diabetes mellitus with diabetic neuropathy, unspecified; E11.51 Type 2 diabetes mellitus with diabetic peripheral angiopathy without gangrene; Z89.511 Acquired absence of right leg below knee; Z87.891 Personal history of nicotine dependence; Z68.43 Body mass index [BMI] 50.0-59.9, adult; Y83.5 Amputation of limb(s) as the cause of abnormal reaction of the patient, or of later complication, without mention of misadventure at the time of the procedure
CPT/HCPCS: 11044; 11047; 88304; 88311; G0463

== ENCOUNTER 2018-06-18 11:00 | Outpatient (CLI) | payer MEDICARE | END 2018-06-18 11:01 | disposition home or self-care (01) | LOC: SLR 11:00 | PROVIDERS: ATTEND Specialist | DX: G47.30 Sleep apnea, unspecified (principal); E11.9 Type 2 diabetes mellitus without complications; E66.01 Morbid (severe) obesity due to excess calories; Z87.891 Personal history of nicotine dependence | CPT/HCPCS: 95810 ==

== ENCOUNTER 2018-08-12 09:57 | Outpatient (CLI) | payer MEDICARE ==
--- NOTE | 2018-08-12 11:37 | Ultrasound Report ---
ULTRASOUND GUIDED NEEDLE CORE BIOPSY LEFT BREAST WITH CLIP PLACEMENT: 08/12/18 10:30:00 CLINICAL: Subareolar left breast mass. COMPARISON :[facility] 06/24/18 mammogram and left breast ultrasound FINDINGS: The procedure was explained to the patient and informed consent was obtained. Ultrasound demonstrated the previously described subareolar solid hypoechoic mass measuring approximately 4.2 x 0.9 x 4.0 cm. I marked the breast with a felt tip marker and a time out was called. The skin was prepped with Betadine and anesthetized with 1% lidocaine. I attempted to aspirate the lesion with an 18-gauge needle but no fluid could be aspirated. Needle core biopsy was performed through a tiny dermatotomy using ultrasound guidance, 2% lidocaine with epinephrine for deep anesthesia and a 14-gauge Achieve biopsy device. 4 cores were obtained and placed in formalin. A clip was deployed within the mass. The patient tolerated the procedure well and there were no apparent complications. Hemostasis was achieved with minimal pressure and a sterile dressing was applied. A two view mammogram demonstrated concordant clip deployment. She left the department in good condition and was given instructions for wound care and followup. IMPRESSION: Uncomplicated ultrasound guided needle core biopsy with clip placement left breast.
--- NOTE | 2018-08-12 11:51 | Mammography Report ---
LEFT DIGITAL DIAGNOSTIC MAMMOGRAM: 08/12/18 09:57:00 CLINICAL: For clip placement immediately status post ultrasound biopsy. 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 COMPARISON:06/24/18 [facility] mammogram and ultrasound and [facility] mammogram and ultrasound from 08/27/14. FINDINGS: A new biopsy clip is now identified within a larger and apparently separate subareolar mass.A second biopsy clip correlates with the previous biopsy and there is no distinct mass associated with it. IMPRESSION: Concordant clip placement status post ultrasound biopsy. BI-RADS CATEGORY: 4--Suspicious Pathology pending.
== END 2018-08-12 09:58 | disposition home or self-care (01) ==
LOC: SPVWC 09:57
PROVIDERS: ATTEND Surgery
DX: N61.0 Mastitis without abscess (principal); R92.0 Mammographic microcalcification found on diagnostic imaging of breast
CPT/HCPCS: 88305; 88312

== ENCOUNTER 2018-09-03 06:32 | Day surgery (SDC) | payer MEDICARE ==
[2018-09-03] MEDS ORDERED: NACL 0.9% 1000 ML 1,000 ML IV SCH (10:00)
[2018-09-03] MEDS ORDERED: DIPRIVAN 10 MG/ML IV ONE (11:38)
[2018-09-03] MEDS ORDERED: VERSED IV ONE (11:38)
[2018-09-03 12:31] VITALS: BP 122/81
--- NOTE | 2018-09-03 12:52 | Anesthesia Day of Surgery ---
Anesthesia Day of Surgery - Day of Surgery Patient Examined: Yes Patient H&P Reviewed: Yes Patient is NPO: Yes Beta Blockers: No
--- NOTE | 2018-09-03 12:54 | Anesthesia Consultation ---
Anesthesia Consult and Med Hx Date of service: 09/03/18 - Airway Anesthetic Teeth Evaluation: Good ROM Head & Neck: Adequate Mental/Hyoid Distance: Adequate Mallampati Class: Class III Intubation Access Assessment: Good - Pulmonary Exam CTA: Yes - Cardiac Exam Cardiac Exam: No Murmur - Pre-Operative Health Status ASA Pre-Surgery Classification: ASA3 Proposed Anesthetic Plan: MAC - Pulmonary Hx Smoking: Yes (former, quit 6 yrs ago) Hx Asthma: No Hx Respiratory Symptoms: No SOB: No COPD: No Home Oxygen Therapy: No Hx Pneumonia: No Hx Sleep Apnea: Yes - Cardiovascular System Hx Hypertension: No Hx Coronary Artery Disease: No Hx Heart Attack/AMI: No Hx Angina: No Hx Percutaneous Transluminal Coronary Angioplasty (PTCA): No Hx Cardia Arrhythmia: No Hx Peripheral Vascular Disease: Yes - Central Nervous System Hx Psychiatric Problems: No - Gastrointestinal Hx Gastroesophageal Reflux Disease: No - Endocrine Hx Insulin Dependent Diabetes: Yes Hx Thyroid Disease: No - Hematic Hx Anemia: Yes - Other Systems Hx Alcohol Use: Yes (occas) Hx Cancer: No Hx Obesity: Yes
== END 2018-09-03 06:33 | disposition home or self-care (01) ==
LOC: GIO 06:32
PROVIDERS: ATTEND Specialist
DX: K21.0 Gastro-esophageal reflux disease with esophagitis (principal); K30 Functional dyspepsia; K44.9 Diaphragmatic hernia without obstruction or gangrene; E66.01 Morbid (severe) obesity due to excess calories; E11.69 Type 2 diabetes mellitus with other specified complication; E11.40 Type 2 diabetes mellitus with diabetic neuropathy, unspecified; E11.39 Type 2 diabetes mellitus with other diabetic ophthalmic complication; E11.51 Type 2 diabetes mellitus with diabetic peripheral angiopathy without gangrene; G47.30 Sleep apnea, unspecified; Z98.51 Tubal ligation status; Z98.891 History of uterine scar from previous surgery; Z79.899 Other long term (current) drug therapy; Z87.891 Personal history of nicotine dependence; Z79.84 Long term (current) use of oral hypoglycemic drugs; Z79.4 Long term (current) use of insulin; Z68.43 Body mass index [BMI] 50.0-59.9, adult; Z91.19 Patient's noncompliance with other medical treatment and regimen; Z87.440 Personal history of urinary (tract) infections; Z86.718 Personal history of other venous thrombosis and embolism; Z72.89 Other problems related to lifestyle; Z98.890 Other specified postprocedural states; Z86.2 Personal history of diseases of the blood and blood-forming organs and certain disorders involving the immune mechanism
CPT/HCPCS: 43235; 82962; J2250; J2704; J7030

== ENCOUNTER 2018-11-14 02:07 | Inpatient (IN) | payer MEDICARE ==
[2018-11-14] MEDS ORDERED: ZOFRAN IV ONE (02:44)
[2018-11-14] MEDS ORDERED: NACL 0.9% 500 ML 500 ML IV ONE ×2 (02:45→04:38)
[2018-11-14] MEDS ORDERED: HumuLIN R IV ONE ×2 (02:45→05:10)
--- NOTE | 2018-11-14 02:46 | Emergency Department Report ---
ED General Adult HPI - General Chief complaint: Weakness Stated complaint: RT SIDE WEAKNESS Time Seen by Provider: 11/14/18 02:31 Source: patient, EMS (ems notes not available at time of chart dictation), RN notes reviewed, old records reviewed Mode of arrival: Stretcher Limitations: Physical Limitation - History of Present Illness Initial comments: Primary care Dr.: Dr. Benjamín Baird Past medical history: Morbid obesity, peripheral artery disease, type 2 diabetes, bilateral lower extremity amputations with prostheses This is a 43-year-old female. The patient is not known to this provider previously. The patient presents to the emergency room today with multiple complaints. Her first complaint is nausea and vomiting. This has been intermittent over the past week and a half. Patient reportedly admitted to [facility] last week, and reports staying in the hospital for a few days. She may been treated for urinary tract infection. She is not certain. She reports multiple episodes of nausea and vomiting, including black emesis, which started today. She also describes diffuse abdominal cramping. She also describes shortness of breath, lightheadedness, dizziness, and feeling like she might pass out. She also describes right upper extremity weakness and numbness. She believes that this started at 10:00 PM. The weakness and numbness is constant. It worsens with range of motion. It decreases with rest. -: Gradual, Sudden Location: abdomen, right, lower extremity Radiation: non-radiation Quality: aching Consistency: intermittent Improves with: rest Worsens with: movement - Related Data Home Medications Medication Instructions Recorded Confirmed Last Taken Insulin Aspart [NovoLOG 100 10 units SUB-Q TIDWM 10/07/14 11/14/18 09/02/18 UNITS/ML VIAL] Insulin Glargine [Lantus VIAL] 30 units SUB-Q QHS 10/07/14 11/14/18 09/02/18 Metformin HCl [metFORMIN] 1,000 mg PO BID 05/03/17 11/14/18 09/02/18 Allergies Allergy/AdvReac Type Severity Reaction Status Date / Time No Known Drug Allergies Allergy Unknown Verified 11/16/17 13:40 ED Review of Systems ROS: Stated complaint: RT SIDE WEAKNESS Other details as noted in HPI Constitutional: malaise, other Eyes: denies: vision change ENT: denies: epistaxis Respiratory: shortness of breath. denies: cough Cardiovascular: other (patient endorses near syncope) Gastrointestinal: nausea, vomiting, other (describes black emesis) Genitourinary: denies: dysuria Musculoskeletal: arthralgia, myalgia Skin: denies: lesions Neurological: weakness, numbness Psychiatric: anxiety ED Past Medical Hx - Past Medical History Previous Medical History?: Yes Hx Hypertension: No Hx Heart Attack/AMI: No Hx Diabetes: Yes Hx Deep Vein Thrombosis: Yes Hx Asthma: No Hx COPD: No Additional medical history: MORBID OBESITY - Surgical History Past Surgical History?: Yes Additional Surgical History: x2. R BKA - Social History Smoking Status: Never Smoker Substance Use Type: Alcohol - Medications Home Medications: Home Medications Medication Instructions Recorded Confirmed Last Taken Type Insulin Aspart [NovoLOG 100 10 units SUB-Q TIDWM 10/07/14 11/14/18 09/02/18 History UNITS/ML VIAL] Insulin Glargine [Lantus VIAL] 30 units SUB-Q QHS 10/07/14 11/14/18 09/02/18 History Metformin HCl [metFORMIN] 1,000 mg PO BID 05/03/17 11/14/18 09/02/18 History ED Physical Exam - General Limitations: Physical Limitation General appearance: alert, anxious, obese - Head Head exam: Present: atraumatic, normocephalic - Eye Eye exam: Present: normal appearance, EOMI, other (visual acuity intact to finger counting, color perception, reading at a close distance). Absent: nystagmus - ENT ENT exam: Present: normal exam, normal orophraynx, mucous membranes moist, normal external ear exam - Neck Neck exam: Present: normal inspection, full ROM - Respiratory Respiratory exam: Present: normal lung sounds bilaterally. Absent: respiratory distress - Cardiovascular Cardiovascular Exam: Present: regular rate, normal rhythm, normal heart sounds. Absent: bradycardia, tachycardia, irregular rhythm, systolic murmur, diastolic murmur, rubs, gallop - GI/Abdominal GI/Abdominal exam: Present: soft. Absent: distended, tenderness, guarding, rebound, rigid, pulsatile mass - Rectal Rectal exam: Present: normal inspection, normal rectal tone, heme (-) stool, other (chaperoned by nurse Lee Stroud). Absent: heme (+) stool, black stool, bloody stool - Extremities Exam Extremities exam: Present: normal inspection, full ROM, other (2+ pulses noted in the bilateral upper extremities. Lower extremity bilateral below-knee amputations. No redness, pus or streaking.) - Back Exam Back exam: Present: normal inspection, full ROM. Absent: tenderness, CVA tenderness (R), CVA tenderness (L), paraspinal tenderness, vertebral tenderness - Neurological Exam Neurological exam: Present: alert, oriented X3, motor sensory deficit (there is 4 out of 5 strength right upper extremity. Decreased sensation to light touch right upper extremity.), other (there is no facial droop. The tongue is midline. Extraocular movements are intact bilaterally. 5 out of 5 strength liya ateral lower extremities. Sensation intact to light touch bilateral lower extremities. 5 out of 5 strength left upper extremity. Sensation intact to light touch left upper extremity.) - Psychiatric Psychiatric exam: Present: anxious - Skin Skin exam: Present: warm, dry, intact, normal color. Absent: rash ED Course Vital Signs 11/14/18 11/14/18 11/14/18 02:28 02:30 03:30 Temperature 98.2 F Pulse Rate 94 H 92 H Respiratory 12 13 Rate Blood Pressure 160/100 168/99 148/93 Blood Pressure 160/100 [Left] O2 Sat by Pulse 99 98 Oximetry 11/14/18 11/14/18 11/14/18 04:30 05:00 05:30 Temperature Pulse Rate 98 H 101 H 92 H Respiratory 12 12 13 Rate Blood Pressure 158/97 131/92 154/91 Blood Pressure [Left] O2 Sat by Pulse 97 Oximetry 11/14/18 11/14/18 11/14/18 05:51 06:00 06:11 Temperature Pulse Rate 93 H 93 H 95 H Respiratory 12 13 18 Rate Blood Pressure 130/86 128/78 128/78 Blood Pressure [Left] O2 Sat by Pulse 96 97 98 Oximetry 11/14/18 06:37 Temperature 98.0 F Pulse Rate Respiratory 18 Rate Blood Pressure 134/92 Blood Pressure [Left] O2 Sat by Pulse Oximetry - Reevaluation(s) Reevaluation #1: 11/14/18 04:06 Differential diagnosis, including not limited to: Subacute stroke, diabetic ketoacidosis, hyperosmolar state, gastroparesis, upper GI bleed, pneumonia, acute coronary syndrome, pulmonary embolus, renal colic, kidney infection, obstruction Assessment and plan: 43-year-old female with multiple complaints, including right upper extremity weakness, numbness, nausea, vomiting, question black emesis, generalized weakness, shortness of breath and lightheadedness. Patient has an NIH score of 2 on my examination. Not a TPA candidate given low NIH score, question upper GI bleed, hyperglycemia, and patient presented to this emergency room at 4 hours and 15 minutes into her symptom onset. It was not possible to complete all of her diagnostics within a 15 minute window. A noncontrast CT scan of the brain suggests a subacute right-sided cerebellar infarct, thus, if TPA were administered, patient would have a high risk of hemorrhagic transformation. Given her recent hospitalization she is at risk for pulmonary embolism, and therefore may require CT angiogram of the chest to exclude pulmonary embolus. Currently, MRI, MRA not available. Patient seen in consultation with my stroke neurology colleague, Dr. Lacy who agrees the patient noted a TPA candidate, a nd agrees that presentation unlikely to be consistent with large vessel occlusion, and does not recommend emergent CT angiogram at this time. CT scan of the abdomen pelvis pending at this time. Urinalysis is pending at this time. Neurology okay with antiplatelet therapy, assuming no contraindic ations demonstrated on aforementioned diagnostic studies. Patient will be given nausea medicine, fluids, and insulin for her nausea, vomiting, and hyperglycemia. We will admit the patient to the medical service once initial diagnostics have resulted. 11/14/18 05:55 Reevaluation #2: 11/14/18 04:40 Elevated troponin reviewed and appreciated. Patient not endorsing chest pain. Stroke neurology is okay with aspirin therapy at this point in time. Patient does not appear to be in any acute distress, and she is speaking on face time on the side of the phone. Lactic acidosis reviewed and appreciated, likely secondary to dehydration, nausea vomiting, which are both likely secondary to her subacute cerebellar stroke, and probable hyperglycemia/gastroparesis Urinalysis pending at this time. CT abdomen and pelvis interpretation pending at this time. Hospital physician paged to arrange admission. Do not suspect acute bacterial illness at this point in time. Reevaluation #3: 11/14/18 04:53 Dr Nguyen to admit will defer to inpatient team to follow up on cta chest Elevated d-dimer reviewed and appreciated, however, given obvious risks of anticoagulation in the context of presumed subacute stroke, including hemorrhagic transformation, we will need objective imaging studies back before we can make a determination as to the risk-benefit ratio of systemic anticoagulation. 11/14/18 05:28 CT scan of the abdomen and pelvis negative for acute disease. Patient faced timing on a cellular phone, and does not appear to be in any acute distress at this time. 11/17/18 01:21 ED Medical Decision Making - Lab Data Result diagrams: 11/16/18 04:53 11/16/18 04:53 Vital Signs 11/14/18 02:28 Temperature 98.2 F Pulse Rate 94 H Respiratory 12 Rate Blood Pressure 160/100 Blood Pressure 160/100 [Left] O2 Sat by Pulse 99 Oximetry Labs 11/14/18 11/14/18 02:56 03:39 WBC 9.8 RBC 4.86 Hgb 14.9 H Hct 44.8 H MCV 92 MCH 31 MCHC 33 RDW 14.6 Plt Count 215 Lymph % (Auto) 10.0 L [place] % (Auto) 5.2 Eos % (Auto) 0.1 Baso % (Auto) 0.1 Lymph # 1.0 L [place] # 0.5 Eos # 0.0 Baso # 0.0 Seg Neutrophils % 84.6 H Seg Neutrophils # 8.3 H POC Glucose 399 H - EKG Data -: EKG Interpreted by Me EKG shows normal: sinus rhythm Rate: normal - EKG Data When compared to previous EKG there are: previous EKG unavailable 11/14/18 04:04 EKG shows a sinus rhythm, 92 bpm, left axis deviation, left anterior fascicular block, QTC prolonged, poor R wave progression, this is an abnormal EKG, his EKG is not consistent with ST elevation myocardial infarction. There is no prior EKG available for Comparison currently. - Radiology Data Radiology results: report reviewed, image reviewed interpreted by me: X-ray of the chest shows poor inspiratory effort, enlarged cardiac silhouette, no obvious gross disease. Noncontrast CT scan of the brain shows no bleed. Cytotoxic edema noted in the right hemisphere of the cerebellum, suggesting high likelihood of recent ischemic stroke. Critical Care Time: Yes Critical care time in (mins) excluding proc time.: 35 Critical care attestation.: If time is entered above; I have spent that time in minutes in the direct care of this critically ill patient, excluding procedure time. ED Disposition Clinical Impression: Stroke, Hyperglycemia, Nausea and vomiting, Shortness of breath Disposition: DC-09 OP ADMIT IP TO THIS HOSP Is pt being admited?: Yes Does the pt Need Aspirin: Yes Condition: Fair
--- NOTE | 2018-11-14 03:01 | Emergency Department Report ---
ED Neuro Deficit HPI - General Chief Complaint: Weakness Stated Complaint: RT SIDE WEAKNESS Time Seen by Provider: 11/14/18 02:31 Source: patient, RN/MD, EMS Mode of arrival: Stretcher Limitations: Physical Limitation - History of Present Illness Initial Comments: [facility] Date of service: 11/14/2018 Impression: 43 year old female who presents with right numbness and weakness in the setting of uncontrolled diabetes. Symptom may be due to stroke possibly hyperglycemia Not a tpa candidate due to: Last seen normal more than 4.5 hours Does not meet LVO screening criteria (no aphasia, neglect, gaze deviation, dense hemiparesis, or visual field deficits on exam), therefore advanced imaging is not indicated. Comments: Door Time: 2:13 [employer] contacted: 2:46 [employer] at bedside: 2:51 NIHSS assessment start time (time the consultation begins): Last known well time (LKW): 22:00 Recommendations: Start antiplatelet if no obvious contraindication Stroke protocol admission/ orderset suggested with placement on stroke floor tele monitoring Bedside swallow evaluation HOB less than 30 degrees IV Fluid hydration with NS Euglycemia avoid hyperthermia, PRN acetaminophen dvt ppx If CT PE shows large PE then recommend risk/benefit discussion regarding starting anticoagulation because of increased risk of bleeding into cerebellar infarct. If CT PE shows small segmental or subsegmental PE then recommend waiting 48 hours before starting anticoagulation if respiratory status is stable. Consider inpatient neurology consultation Discussed with ED MD Please call with questions --- ------ CC: Stroke alert History of Present Illness Patient is a43 year old female with a history of poorly controlled diabetes, PAD s/p bilateral amputations, and morbid obesity who presents with multiple complaints including, abdominal pain, shortness of breath, and right arm weakness and numbness which started around 10pm last night. She also noted some dark emesis. Diagnostic: CT brain w/o contrast: Right cerebellar infarct Exam: Mental Status: Awake, alert, oriented Naming: Intact Repetition: Intact Speech: fluent Cranial Nerves: Pupils: Equal round and reactive to light Extraocular movements: Intact in all cardinal gaze Ptosis: Absent Visual cross: Intact to finger counting Facial sensation: Intact to pin and light touch Facial movements: Intact and symmetric Motor Exam: No drift Tremor/Abnormal Movements: Resting tremor: Absent Intention tremor: Absent Postural tremor: Absent Sensory Exam: Light touch: Intact Pinprick: Intact Coordination: Finger to nose:mild ataxia on right NIHSS score: 1 Medical Decision Making: - Extensive number of diagnosis or management options are considered above. - Extensive amount of complex data reviewed. - High risk of complication and/or morbidity or mortality are associated with differential diagnostic considerations above. - There may be Uncertain outcome and increased probability of prolonged functional impairment or high probability of severe prolonged functional im pairment associated with some of these differential diagnosis. Medical Data Reviewed: 1.Data reviewed include clinical labs, radiology,Medical Tests; 2.Tests results discussed w/performing or interpreting physician; 3.Obtaining/reviewing old medical records; 4.Obtaining case history from another source; 5.Independent review of image, tracing or specimen. Patient was informed the Neurology Consult would happen via TeleHealth consult by way of interactive audio and video telecommunications and consented to receiving care in this manner. Last Observed Normal: 22:00 Presenting Symptoms: Present: Weak/Paralyzed One Side - Related Data Home Medications: Home Medications Medication Instructions Recorded Confirmed Last Taken Insulin Aspart [NovoLOG 100 10 units SUB-Q TIDWM 10/07/14 09/03/18 09/02/18 UNITS/ML VIAL] Insulin Glargine [Lantus VIAL] 30 units SUB-Q QHS 10/07/14 09/03/18 09/02/18 Metformin HCl [metFORMIN] 1,000 mg PO BID 05/03/17 09/03/18 09/02/18 Allergies/Adverse Reactions: Allergies Allergy/AdvReac Type Severity Reaction Status Date / Time No Known Drug Allergies Allergy Unknown Verified 11/16/17 13:40 ED Review of Systems ROS: Stated complaint: RT SIDE WEAKNESS Other details as noted in HPI ED Past Medical Hx - Past Medical History Previous Medical History?: Yes Hx Hypertension: No Hx Heart Attack/AMI: No Hx Diabetes: Yes Hx Deep Vein Thrombosis: Yes Hx Asthma: No Hx COPD: No Additional medical history: MORBID OBESITY - Surgical History Past Surgical History?: Yes Additional Surgical History: x2. R BKA - Social History Smoking Status: Never Smoker Substance Use Type: Alcohol - Medications Home Medications: Home Medications Medication Instructions Recorded Confirmed Last Taken Type Insulin Aspart [NovoLOG 100 10 units SUB-Q TIDWM 10/07/14 09/03/18 09/02/18 History UNITS/ML VIAL] Insulin Glargine [Lantus VIAL] 30 units SUB-Q QHS 10/07/14 09/03/18 09/02/18 History Metformin HCl [metFORMIN] 1,000 mg PO BID 05/03/17 09/03/18 09/02/18 History ED Neuro Physical Exam - General Limitations: Physical Limitation Suspected Stroke: Yes - NIHSS Assessment Interval: Baseline 1a. Level of Consciousness: alert/keenly responsive 1b. LOC Questions: answers both correctly 1c. LOC Commands: performs tasks correctly 2. Best Gaze: normal 3. Visual: no visual loss 4. Facial Palsy: normal symmetrical movement 5b. Motor Arm Right: no drift 5a. Motor Arm Left: no drift 6a. Motor Leg Left: no drift 6b. Motor Leg Right: no drift 7. Limb Ataxia: present 1 limb 8. Sensory: normal 9. Best Language: no aphasia 10. Dysarthria: normal 11. Extinction/Inattention: no abnormality Total Score: 1 Stroke Severity: Minor Stroke ED Course Vital Signs 11/14/18 02:28 Temperature 98.2 F Pulse Rate 94 H Respiratory 12 Rate Blood Pressure 160/100 Blood Pressure 160/100 [Left] O2 Sat by Pulse 99 Oximetry - Lab Data Lab Results 11/14/18 Range/Units 02:56 POC Glucose 399 H (70-105) Critical care attestation.: If time is entered above; I have spent that time in minutes in the direct care of this critically ill patient, excluding procedure time. ED Disposition Clinical Impression: Stroke Disposition: DC-09 OP ADMIT IP TO THIS HOSP Is pt being admited?: Yes Condition: Stable
[2018-11-14 03:53] LABS: Basophils % (Auto) 0.1 % (0.0-1.8); Eosinophils % (Auto) 0.1 % (0.0-4.3); Hematocrit 44.8 % (30.3-42.9); Hemoglobin 14.9 gm/dl (10.1-14.3); Mean Corpuscular HGB Conc 33 % (30-34); Mean Corpuscular Volume 92 fl (79-97); Monocytes # (Auto) 0.5 K/mm3 (0.0-0.8); Monocytes % (Auto) 5.2 % (0.0-7.3); Platelet Count 215 K/mm3 (140-440); Red Blood Count 4.86 M/mm3 (3.65-5.03); Red Cell Distribution Width 14.6 % (13.2-15.2)
[2018-11-14 04:18] LABS: INR 0.94 (0.87-1.13)
[2018-11-14 04:19] LABS: Partial Thromboplastin Time 23.8 Sec. (24.2-36.6)
[2018-11-14 04:20] LABS: Thrombin Time 17.4 Sec. (15.1-19.6)
[2018-11-14 04:22] LABS: Creatine Kinase MB 8.4 ng/mL (0.0-4.0)
[2018-11-14 04:23] LABS: Alanine Aminotransferase 9 units/L (7-56); Albumin 3.7 g/dL (3.9-5); BUN/Creatinine Ratio 16; Blood Urea Nitrogen 13 mg/dL (7-17); Calcium 9.5 mg/dL (8.4-10.2); Hemolysis Index 12
[2018-11-14] MEDS ORDERED: BABY ASPIRIN PO ONE (04:42)
--- NOTE | 2018-11-14 04:44 | XRay Report ---
PROCEDURE: XR CHEST 1V AP TECHNIQUE: Chest radiograph single view. HISTORY: sob COMPARISONS: CT abdomen pelvis of the same date . FINDINGS: No mediastinal shift. Cardiac silhouette is not enlarged. No pneumothorax, effusion, or focal pulmona ry opacity identified. No acute skeletal findings. IMPRESSION: No acute pulmonary finding identified. This document is electronically signed by Olivier Mueller MD., November 14 2018 04:42:36 AM ET
--- NOTE | 2018-11-14 05:19 | Cat Scan Report ---
PROCEDURE: CT ABDOMEN PELVIS WO CON TECHNIQUE: CT imaging of the abdomen and pelvis without contrast HISTORY: n/v weak COMPARISONS: None FINDINGS: Imaged intrathoracic contents are unremarkable. Kidneys are normal in size, axis and position. No hydronephrosis or nephrolithiasis. The ureters are normal in course and caliber. No stones are seen within the urinary bladder. Anteverted uterus. Multi ple pelvic phleboliths. No free fluid in the pelvis. Subcentimeter layering calcified cholelithiasis without pericholecystic inflammatory findings. The li danyell, pancreas, spleen, and adrenal glands demonstrate an unremarkable noncontrast appearance. Hollow enteric organs are normal in course and caliber. Appendix is normal. No intra-abdominal free a ir/fluid or lymphadenopathy. Aorta is normal in course and caliber. Superficial soft tissues are unremarkable. No acute or aggressive appearing skeletal findings. IMPRESSION: No acute findings in the abdomen or pelvis. Cholelithiasis. This document is electronically signed by Olivier Mueller MD., November 14 2018 05:17:07 AM ET
[2018-11-14 05:36] LABS: Amorphous Crystals,Urine 1+; Bilirubin,Urine NEG (Negative); Blood,Urine SM (Negative); Color,Urine Yellow (Yellow); Protein,Urine <15 mg/dL mg/dL (Negative); RBC,Urine < 1.0 /HPF (0.0-6.0); Urobilinogen,Urine < 2.0 mg/dL (<2.0)
[2018-11-14] MEDS ORDERED: D50W (25GM) Syringe IV PRN (05:36)
--- NOTE | 2018-11-14 05:42 | History and Physical Report ---
History of Present Illness Date of examination: 11/14/18 Date of admission: 11/14/2018 Chief complaint: Generalized weakness History of present illness: Patient is a 43-year-old female with PMHx of Morbid obesity, peripheral artery disease, type 2 diabetes, bilateral lower extremity amputations with prostheses We'll presents to the ER today with complaints of weakness, nausea and vomiting. She has states that she has been keeping it strict liquid diet, she only eats tomato soup, sugar-free drink and Jelo. Patient states that she does not check her blood sugar at home, she only takes the insulin once a day. Patient states that for the past 2 days she has been running out of insulin and had not taken any. Patient also reported that she had been admitted to [facility] last week, where she was treated for urinary tract infection. Patient reports feeling weak and tired, she had multiple episodes of nausea and vomiting, she also had right abdominal cramp, shortness of breath feeling lightheaded and dizziness. She decided to come to the ER for evaluation of symptoms. In the ER patient had a blood glucose of 530 Past History Past Medical History: other (mobile obesity, bilateral lower extremities amp utation) Past Surgical History: Other (bilateral BKA) Social history: no significant social history Family history: no significant family history Medications and Allergies Allergies Allergy/AdvReac Type Severity Reaction Status Date / Time No Known Drug Allergies Allergy Unknown Verified 11/16/17 13:40 Home Medications Medication Instructions Recorded Confirmed Last Taken Type Metformin HCl [metFORMIN] 1,000 mg PO BID 05/03/17 11/14/18 09/02/18 History Apixaban [Eliquis] 5 mg PO Q12HR #60 tablet 11/18/18 Unknown Rx Apixaban [Eliquis] 10 mg PO Q12HR #12 tablet 11/18/18 Unknown Rx Aspirin [Aspirin BABY CHEW TAB] 81 mg PO QDAY #30 tab.chew 11/18/18 Unknown Rx AtorvaSTATin [Lipitor] 40 mg PO QHS #30 tablet 11/18/18 Unknown Rx Insulin Aspart [NovoLOG 100 10 units SUB-Q TIDWM #10 ml 11/18/18 Unknown Rx UNITS/ML VIAL] Insulin Glargine [Lantus VIAL] 30 units SUB-Q QHS #10 ml 11/18/18 Unknown Rx Metoclopramide [Reglan TAB] 10 mg PO Q6H PRN #30 tablet 11/18/18 Unknown Rx Review of Systems Constitutional: fatigue Respiratory: dyspnea on exertion Gastrointestinal: abdominal pain Exam - Constitutional Vitals: Temp Pulse Resp BP Pulse Ox 98.2 F 98 H 12 158/97 98 11/14/18 02:28 11/14/18 04:30 11/14/18 04:30 11/14/18 04:30 11/14/18 03:30 General appearance: Present: mild distress - EENT Eyes: Present: EOM intact ENT: hearing intact - Neck Neck: Present: supple, normal ROM - Respiratory Respiratory effort: normal Respiratory: bilateral: CTA - Cardiovascular Rhythm: regular Heart Sounds: Present: S1 & S2 - Extremities Extremities: no ischemia, No edema Peripheral Pulses: within normal limits - Abdominal General gastrointestinal: Present: deferred Female genitourinary: Present: deferred - Rectal Rectal Exam: deferred - Integumentary Integumentary: Present: warm, dry - Musculoskeletal Musculoskeletal: strength equal bilaterally - Psychiatric Psychiatric: appropriate mood/affect - Neurologic Neurologic: moves all extremities Results - Labs CBC & Chem 7: 11/18/18 04:09 11/18/18 04:09 Labs: Laboratory Last Values WBC 9.8 K/mm3 (4.5-11.0) 11/14/18 03:39 RBC 4.86 M/mm3 (3.65-5.03) 11/14/18 03:39 Hgb 14.9 gm/dl (10.1-14.3) H 11/14/18 03:39 Hct 44.8 % (30.3-42.9) H 11/14/18 03:39 MCV 92 fl (79-97) 11/14/18 03:39 MCH 31 pg (28-32) 11/14/18 03:39 MCHC 33 % (30-34) 11/14/18 03:39 RDW 14.6 % (13.2-15.2) 11/14/18 03:39 Plt Count 215 K/mm3 (140-440) 11/14/18 03:39 Lymph % (Auto) 10.0 % (13.4-35.0) L 11/14/18 03:39 [place] % (Auto) 5.2 % (0.0-7.3) 11/14/18 03:39 Eos % (Auto) 0.1 % (0.0-4.3) 11/14/18 03:39 Baso % (Auto) 0.1 % (0.0-1.8) 11/14/18 03:39 Lymph # 1.0 K/mm3 (1.2-5.4) L 11/14/18 03:39 [place] # 0.5 K/mm3 (0.0-0.8) 11/14/18 03:39 Eos # 0.0 K/mm3 (0.0-0.4) 11/14/18 03:39 Baso # 0.0 K/mm3 (0.0-0.1) 11/14/18 03:39 Seg Neutrophils % 84.6 % (40.0-70.0) H 11/14/18 03:39 Seg Neutrophils # 8.3 K/mm3 (1.8-7.7) H 11/14/18 03:39 PT 13.1 Sec. (12.2-14.9) 11/14/18 03:39 INR 0.94 (0.87-1.13) 11/14/18 03:39 APTT 23.8 Sec. (24.2-36.6) L 11/14/18 03:39 17.4 Sec. (15.1-19.6) 11/14/18 03:39 5514.54 ng/mlDDU (0-234) H 11/14/18 03:39 VBG pH 7.304 (7.320-7.420) L 11/14/18 03:39 Sodium 133 mmol/L (137-145) L 11/14/18 03:39 Potassium 4.8 mmol/L (3.6-5.0) 11/14/18 03:39 Chloride 91.8 mmol/L (98-107) L 11/14/18 03:39 Carbon Dioxide 24 mmol/L (22-30) 11/14/18 03:39 22 mmol/L 11/14/18 03:39 BUN 13 mg/dL (7-17) 11/14/18 03:39 0.8 mg/dL (0.7-1.2) 11/14/18 03:39 Estimated GFR > 60 ml/min 11/14/18 03:39 16 % 11/14/18 03:39 Glucose 461 mg/dL (65-100) H 11/14/18 03:39 POC Glucose 321 (70-105) H 11/14/18 05:15 Lactic Acid 2.00 mmol/L (0.7-2.0) 11/14/18 05:17 Calcium 9.5 mg/dL (8.4-10.2) 11/14/18 03:39 Magnesium 1.90 mg/dL (1.7-2.3) 11/14/18 03:39 1.00 mg/dL (0.1-1.2) 11/14/18 03:39 AST 17 units/L (5-40) 11/14/18 03:39 ALT 9 units/L (7-56) 11/14/18 03:39 87 units/L (35-129) 11/14/18 03:39 110 units/L (30-135) 11/14/18 03:39 CK-MB (CK-2) 8.4 ng/mL (0.0-4.0) H 11/14/18 03:39 CK-MB (CK-2) Rel Index 7.6 (0-4) H 11/14/18 03:39 0.217 ng/mL (0.00-0.029) H* 11/14/18 03:39 NT-Pro-B Natriuret Pep 347.3 pg/mL (0-450) 11/14/18 03:39 7.3 g/dL (6.3-8.2) 11/14/18 03:39 3.7 g/dL (3.9-5) L 11/14/18 03:39 1.0 % 11/14/18 03:39 Neg (Negative) 11/14/18 04:04 < 1.0 /HPF (0.0-6.0) 11/14/18 04:04 Assessment and Plan Assessment and plan: 1. Hyperosmolar hyperglycemic nonketotic syndrome 2. Metabolic acidosis (due to above) 3. Uncontrol IDDM 4. Abdominal pain 5. Dehydration 6. Morbid obesity 7. Peripheral artery disease 8. Bilateral lower extremity amputations Plan: IVF for hydration and renal perfusion Accucheck q4 hrs with insulin per sliding scale Clear liquid diet, advanced as tolared DVT prophylasix with Lovenox Plan of care was d/w pt, voiced understanding Advance Directives: Yes VTE prophylaxis?: Chemical Plan of care discussed with patient/family: Yes
[2018-11-14] MEDS ORDERED: REGLAN PO PRN (05:43)
[2018-11-14] MEDS ORDERED: PHENERGAN PR PRN (05:43)
[2018-11-14] MEDS ORDERED: TYLENOL PO PRN (05:43)
[2018-11-14] MEDS ORDERED: DULCOLAX PR PRN (05:43)
[2018-11-14] MEDS ORDERED: ZOFRAN IV PRN (05:43)
[2018-11-14] MEDS ORDERED: MILK OF MAGNESIA PO PRN (05:43)
[2018-11-14] MEDS: HumaLOG SUB-Q SCH ×4 (06:04→23:06)
[2018-11-14 06:09] LABS: Chol/HDL Ratio 5.23 %
[2018-11-14] MEDS ORDERED: NACL 0.9% 1000 ML 1,000 ML IV SCH (08:00)
[2018-11-14] MEDS ORDERED: NON-FORMULARY (Insulin Aspart 10 UNITS) SUB-Q SCH (08:00)
[2018-11-14] MEDS ORDERED: LOVENOX SUB-Q SCH ×2 (10:00→10:30)
[2018-11-14] MEDS: PEPCID IV SCH ×2 (10:25→22:56)
[2018-11-14] MEDS: ZOFRAN IV PRN ×2 (10:25→22:56)
--- NOTE | 2018-11-14 11:47 | Consultation ---
History of Present Illness Consult date: 11/14/18 Requesting physician: YONAS AUGUST Consult reason: elevated troponin History of present illness: The patient is a 43-year-old female with a past medical history of PVD s/p BLE amputations, DM, morbid obesity. She is previously unknown to our practice. She presented with complaints of weakness, nausea and vomiting. She has states that she has been on a strict liquid diet recently and does not check her blood sugar at home. Patient states that for 2 days prior to arrival, she had been running out of insulin and had not taken any. Patient also reported that she had been admitted to [facility] last week, where she was treated for urinary tract infection. Patient reports feeling weak and tired, she had multiple episodes of nausea and vomiting, she also had right abdominal cramp and right-sided weakness and thus decided to seek medical attention. Following arrival, pt diagnosed with HHNK. Pt found to have elevated troponin and thus cardiology has been consulted. Pt denies any chest pain, palpitations, SOB, dizziness or syncope. She denies any known prior cardiac issues, including CAD, AMI or HF. She denies any prior cardiac w/u. Past History Past Medical History: diabetes, other (BLE amputations) Past Surgical History: Other (bilateral BKA) Social history: no significant social history Family history: no significant family history Medications and Allergies Allergies Allergy/AdvReac Type Severity Reaction Status Date / Time No Known Drug Allergies Allergy Unknown Verified 11/16/17 13:40 Home Medications Medication Instructions Recorded Confirmed Last Taken Type Insulin Aspart [NovoLOG 100 10 units SUB-Q TIDWM 10/07/14 11/14/18 09/02/18 History UNITS/ML VIAL] Insulin Glargine [Lantus VIAL] 30 units SUB-Q QHS 10/07/14 11/14/18 09/02/18 History Metformin HCl [metFORMIN] 1,000 mg PO BID 05/03/17 11/14/18 09/02/18 History Active Meds: Active Medications Acetaminophen (Tylenol) 650 mg PO Q4H PRN PRN Reason: Pain MILD(1-3)/Fever >100.5/OHARA Aspirin (Aspirin) 325 mg PO QDAY NARCISA Bisacodyl (Dulcolax) 10 mg [place] QDAY PRN PRN Reason: Constipation Dextrose (D50w (25gm) Syringe) 50 ml IV PRN PRN PRN Reason: Hypoglycemia Enoxaparin Sodium (Lovenox) 160 mg SUB-Q Q12HR [facility] Famotidine (Pepcid) 20 mg IV BID [facility] Last Admin: 11/14/18 10:25 Dose: 20 mg Documented by: Sodium Chloride (Nacl 0.9% 1000 Ml) 1,000 mls @ 125 mls/hr IV DIRECT NARCISA Insulin Glargine (Lantus) 10 units SUB-Q QHS [facility] Insulin Human Lispro (Humalog) 0 unit SUB-Q Q4HR [facility]; Protocol Last Admin: 11/14/18 10:30 Dose: Not Given Documented by: Insulin Human Lispro (Humalog) 10 unit SUB-Q TIDWM [facility] Magnesium Hydroxide (Milk Of Magnesia) 30 ml PO Q4H PRN PRN Reason: Constipation Metoclopramide HCl (Reglan) 10 mg PO Q6H PRN PRN Reason: Nausea And Vomiting Ondansetron HCl (Zofran) 4 mg IV Q8H PRN PRN Reason: Nausea And Vomiting Last Admin: 11/14/18 10:25 Dose: 4 mg Documented by: Pravastatin Sodium (Pravachol) 40 mg PO QHS [facility] Promethazine HCl (Phenergan) 25 mg FL Q6H PRN PRN Reason: Nausea And Vomiting Sodium Chloride (Sodium Chloride Flush Syringe 10 Ml) 10 ml IV PRN PRN PRN Reason: LINE FLUSH Review of Systems Constitutional: fatigue, lethargy, no fever, no chills, no sweats Ears, nose, mouth and throat: no ear pain, no nose pain, no sinus pressure, no sinus pain Cardiovascular: no chest pain, no orthopnea, no palpitations, no rapid/irregular heart beat, no edema, no syncope, no lightheadedness, no shortness of breath, no dyspnea on exertion, no high blood pressure Respiratory: no cough, no shortness of breath, no dyspnea on exertion, no congestion, no wheezing, no pain on inspiration Gastrointestinal: nausea, vomiting, no diarrhea, no constipation, no change in bowel habits Genitourinary Female: no pelvic pain, no flank pain, no dysuria, no urinary frequency, no urgency Musculoskeletal: no neck stiffness, no neck pain, no shooting arm pain, no arm numbness/tingling, no low back pain, no shooting leg pain Integumentary: no rash, no pruritis, no redness, no sores, no wounds Neurological: no head injury, no paralysis, no weakness, no parathesias, no numbness, no tingling, no seizures, no syncope Psychiatric: no anxiety Endocrine: no cold intolerance, no heat intolerance Hematologic/Lymphatic: no easy bruising, no easy bleeding Allergic/Immunologic: no urticaria, no wheezing Physical Examination Vital Signs Temp Pulse Resp BP Pulse Ox 98.2 F 94 H 12 160/100 99 11/14/18 02:28 11/14/18 02:28 11/14/18 02:28 11/14/18 02:28 11/14/18 02:28 General appearance: no acute distress HEENT: Positive: PERRL, Normocephaly, Mucus Membranes Moist Neck: Positive: neck supple, trachea midline Cardiac: Positive: Reg Rate and Rhythm, S1/S2 Lungs: Positive: Decreased Breath Sounds Neuro: Positive: Grossly Intact Abdomen: Positive: Soft. Negative: Tender Skin: Positive: Rash. Negative: Wound Musculoskeletal: No Pain Extremities: Absent: edema Results 11/14/18 03:39 11/14/18 03:39 Cardiac Enzymes 11/14/18 11/14/18 Range/Units 03:39 03:39 AST 17 (5-40) units/L CK-MB (CK-2) 8.4 H (0.0-4.0) ng/mL Coagulation 11/14/18 Range/Units 03:39 PT 13.1 (12.2-14.9) Sec. INR 0.94 (0.87-1.13) APTT 23.8 L (24.2-36.6) Sec. Lipids 11/14/18 Range/Units 03:39 Triglycerides 103 (2-149) mg/dL Cholesterol 220 H (50-199) mg/dL HDL Cholesterol 42 (40-59) mg/dL Cholesterol/HDL Ratio 5.23 % CBC 11/14/18 Range/Units 03:39 WBC 9.8 (4.5-11.0) K/mm3 RBC 4.86 (3.65-5.03) M/mm3 Hgb 14.9 H (10.1-14.3) gm/dl Hct 44.8 H (30.3-42.9) % Plt Count 215 (140-440) K/mm3 Lymph # 1.0 L (1.2-5.4) K/mm3 [place] # 0.5 (0.0-0.8) K/mm3 Eos # 0.0 (0.0-0.4) K/mm3 Baso # 0.0 (0.0-0.1) K/mm3 Comprehensive Metabolic Panel 11/14/18 Range/Units 03:39 Sodium 133 L (137-145) mmol/L Potassium 4.8 (3.6-5.0) mmol/L Chloride 91.8 L (98-107) mmol/L Carbon Dioxide 24 (22-30) mmol/L BUN 13 (7-17) mg/dL Creatinine 0.8 (0.7-1.2) mg/dL Glucose 461 H (65-100) mg/dL Calcium 9.5 (8.4-10.2) mg/dL AST 17 (5-40) units/L ALT 9 (7-56) units/L Alkaline Phosphatase 87 (35-129) units/L Total Protein 7.3 (6.3-8.2) g/dL Albumin 3.7 L (3.9-5) g/dL - Imaging and Cardiology Echo: pending EKG: report reviewed, image reviewed EKG interpretations - Telemetry EKG Rhythm: Sinus Rhythm - EKG Sinus rhythms and dysrhythmias: sinus rhythm Myocardial infarction: inferior LA (old age inde, anterior LA (old age or i Assessment and Plan Pt presented with HHNK, n/v, right-sided weakness. Head CT is pending. DDimer is elevated - chest CTA is pending. Troponin elevation appears c/w NSTEMI type II, ECG with no acute ischemic changes, pt denies chest pain. Cont to trend Naomy and repeat ECG in AM. Await echo. Pt with new diagnoses of dyslipidemia and HTN. Agree with statin and will optimize anti-hypertensive regimen. Further recs to follow per hospital course. The patient has been seen in conjunction with Dr. Carnes who agrees with the assessment and plan of care. - Patient Problems (1) HHNC (hyperglycemic hyperosmolar nonketotic coma) Current Visit: Yes Status: Acute (2) Diabetes Current Visit: Yes Status: Chronic (3) Noncompliance with diabetes treatment Current Visit: Yes Status: Chronic (4) Nausea and vomiting Current Visit: Yes Status: Acute (5) Right sided weakness Current Visit: Yes Status: Acute (6) Obesity Current Visit: Yes Status: Chronic (7) S/P amputation Current Visit: Yes Status: Chronic (8) NSTEMI (non-ST elevated myocardial infarction) Current Visit: Yes Status: Acute Plan to address problem: type II (9) Dyslipidemia Current Visit: Yes Status: Chronic
[2018-11-14] MEDS ORDERED: HumaLOG SUB-Q SCH (12:00)
[2018-11-14] MEDS: TYLENOL PO PRN ×2 (14:35→22:57)
--- NOTE | 2018-11-14 15:34 | Progress Note ---
Assessment and Plan Hyperosmolar hyperglycemic nonketotic syndrome - We'll continue insulin and adjust doses as needed - We will continue IV fluid hydration with normal saline - We will replace potassium and magnesium as needed Uncontrolled insulin-dependent diabetes mellitus type 2 - Counseled for compliance, A1c 13.3 - Monitor blood glucose and adjust insulin dose as needed NSTEMI type II - d-dimer elevated, CTA chest pending - Continue aspirin and statin, trend troponin - Cardiology consulted, cont therapeutic lovenox Hyponatremia, likely due to hyperglycemia - Repeat BMP, continue IV fluid Hyperlipidemia, continue statin Morbid obesity, nutritional consult Peripheral artery disease s/P BLE amputations - Supportive care DVt Px, on lovenox Brief History: The patient is a 43-year-old female with a past medical history of PVD s/p BLE amputations, DM, morbid obesity, noncompliance with medications presented with complaints of weakness, nausea and vomiting. Patient reports feeling weak and tired, she had multiple episodes of nausea and vomiting, she also had right abdominal cramp and right-sided weakness and thus decided to seek medical attention. Following arrival, pt diagnosed with HHNK, elevated troponin. Radiological data: Head CT is pending. DDimer is elevated - chest CTA is pending. Hospitalist Physical exam: GENERAL: well-developed morbidly obese lying on bed appeared to be in no discomfort. HEENT: Normocephalic. Atraumatic. No conjunctival congestion or icterus. Patient has moist mucous membranes. NECK: Supple. Trachea midline. CHEST/LUNGS: Clear to auscultated bilaterally, breathing nonlabored. No wheezes crackles or rhonchi. HEART/CARDIOVASCULAR: Regular in rate and rhythm. S1 and S2 positive. ABDOMEN: Abdomen is soft, nontender. Patient has normal bowel sounds. SKIN: There is no rash. Warm and dry. NEURO: No focal motor deficit. Follows command. MUSCULOSKELETAL: No joint effusion or tenderness. EXTRIMITY: No edema, no cyanosis or clubbing. PSYCH: Cooperative. Subjective Date of service: 11/14/18 Interval history: Patient seen and examined. Medical records and medication list reviewed. No acute event overnight noted by the RN. Patient denies any chest pain or difficulty breathing. Patient is tolerating clear liquid diet. Discussed plan of care at bedside with patient. Objective - Constitutional Vitals: Vital Signs - 12hr 11/14/18 11/14/18 11/14/18 04:30 05:00 05:30 Temperature Pulse Rate 98 H 101 H 92 H Respiratory 12 12 13 Rate Blood Pressure 158/97 131/92 154/91 O2 Sat by Pulse 97 Oximetry 11/14/18 11/14/18 11/14/18 05:51 06:00 06:11 Temperature Pulse Rate 93 H 93 H 95 H Respiratory 12 13 18 Rate Blood Pressure 130/86 128/78 128/78 O2 Sat by Pulse 96 97 98 Oximetry 11/14/18 11/14/18 11/14/18 06:37 08:32 09:03 Temperature 98.0 F 98.1 F Pulse Rate 88 Respiratory 18 16 Rate Blood Pressure 134/92 160/98 O2 Sat by Pulse 96 97 Oximetry 11/14/18 12:26 Temperature 98.3 F Pulse Rate 84 Respiratory 16 Rate Blood Pressure 140/87 O2 Sat by Pulse 93 Oximetry - Labs CBC & Chem 7: 11/14/18 19:48 11/15/18 03:01 Labs: Abnormal lab results 11/14/18 11/14/18 11/14/18 Range/Units 02:56 03:39 03:39 Hgb 14.9 H (10.1-14.3) gm/dl Hct 44.8 H (30.3-42.9) % Lymph % (Auto) 10.0 L (13.4-35.0) % Lymph # 1.0 L (1.2-5.4) K/mm3 Seg Neutrophils % 84.6 H (40.0-70.0) % Seg Neutrophils # 8.3 H (1.8-7.7) K/mm3 APTT 23.8 L (24.2-36.6) Sec. D-Dimer 5514.54 H (0-234) ng/mlDDU VBG pH (7.320-7.420) Sodium (137-145) mmol/L Chloride (98-107) mmol/L Glucose (65-100) mg/dL POC Glucose 399 H (70-105) Hemoglobin A1c (4-6) % Lactic Acid (0.7-2.0) mmol/L CK-MB (CK-2) (0.0-4.0) ng/mL CK-MB (CK-2) Rel Index (0-4) Troponin T (0.00-0.029) ng/mL Albumin (3.9-5) g/dL Cholesterol (50-199) mg/dL LDL Cholesterol Direct (50-130) mg/dL Ur Specific [place] (1.003-1.030) 11/14/18 11/14/18 11/14/18 Range/Units 03:39 03:39 03:39 Hgb (10.1-14.3) gm/dl Hct (30.3-42.9) % Lymph % (Auto) (13.4-35.0) % Lymph # (1.2-5.4) K/mm3 Seg Neutrophils % (40.0-70.0) % Seg Neutrophils # (1.8-7.7) K/mm3 APTT (24.2-36.6) Sec. D-Dimer (0-234) ng/mlDDU VBG pH 7.304 L (7.320-7.420) Sodium (137-145) mmol/L Chloride (98-107) mmol/L Glucose (65-100) mg/dL POC Glucose (70-105) Hemoglobin A1c (4-6) % Lactic Acid 3.10 H* (0.7-2.0) mmol/L CK-MB (CK-2) 8.4 H (0.0-4.0) ng/mL CK-MB (CK-2) Rel Index 7.6 H (0-4) Troponin T 0.217 H* (0.00-0.029) ng/mL Albumin (3.9-5) g/dL Cholesterol 220 H (50-199) mg/dL LDL Cholesterol Direct 163 H (50-130) mg/dL Ur Specific [place] (1.003-1.030) 11/14/18 11/14/18 11/14/18 Range/Units 03:39 04:04 05:15 Hgb (10.1-14.3) gm/dl Hct (30.3-42.9) % Lymph % (Auto) (13.4-35.0) % Lymph # (1.2-5.4) K/mm3 Seg Neutrophils % (40.0-70.0) % Seg Neutrophils # (1.8-7.7) K/mm3 APTT (24.2-36.6) Sec. D-Dimer (0-234) ng/mlDDU VBG pH (7.320-7.420) Sodium 133 L (137-145) mmol/L Chloride 91.8 L (98-107) mmol/L Glucose 461 H (65-100) mg/dL POC Glucose 321 H (70-105) Hemoglobin A1c (4-6) % Lactic Acid (0.7-2.0) mmol/L CK-MB (CK-2) (0.0-4.0) ng/mL CK-MB (CK-2) Rel Index (0-4) Troponin T (0.00-0.029) ng/mL Albumin 3.7 L (3.9-5) g/dL Cholesterol (50-199) mg/dL LDL Cholesterol Direct (50-130) mg/dL Ur Specific [place] 1.032 H (1.003-1.030) 11/14/18 11/14/18 11/14/18 Range/Units 05:51 08:08 12:32 Hgb (10.1-14.3) gm/dl Hct (30.3-42.9) % Lymph % (Auto) (13.4-35.0) % Lymph # (1.2-5.4) K/mm3 Seg Neutrophils % (40.0-70.0) % Seg Neutrophils # (1.8-7.7) K/mm3 APTT (24.2-36.6) Sec. D-Dimer (0-234) ng/mlDDU VBG pH (7.320-7.420) Sodium (137-145) mmol/L Chloride (98-107) mmol/L Glucose (65-100) mg/dL POC Glucose 281 H 302 H (70-105) Hemoglobin A1c 13.3 H (4-6) % Lactic Acid (0.7-2.0) mmol/L CK-MB (CK-2) (0.0-4.0) ng/mL CK-MB (CK-2) Rel Index (0-4) Troponin T (0.00-0.029) ng/mL Albumin (3.9-5) g/dL Cholesterol (50-199) mg/dL LDL Cholesterol Direct (50-130) mg/dL Ur Specific [place] (1.003-1.030) 11/14/18 Range/Units 13:04 Hgb (10.1-14.3) gm/dl Hct (30.3-42.9) % Lymph % (Auto) (13.4-35.0) % Lymph # (1.2-5.4) K/mm3 Seg Neutrophils % (40.0-70.0) % Seg Neutrophils # (1.8-7.7) K/mm3 APTT (24.2-36.6) Sec. D-Dimer (0-234) ng/mlDDU VBG pH (7.320-7.420) Sodium (137-145) mmol/L Chloride (98-107) mmol/L Glucose (65-100) mg/dL POC Glucose (70-105) Hemoglobin A1c (4-6) % Lactic Acid (0.7-2.0) mmol/L CK-MB (CK-2) (0.0-4.0) ng/mL CK-MB (CK-2) Rel Index (0-4) Troponin T 0.441 H* D (0.00-0.029) ng/mL Albumin (3.9-5) g/dL Cholesterol (50-199) mg/dL LDL Cholesterol Direct (50-130) mg/dL Ur Specific [place] (1.003-1.030)
[2018-11-14] MEDS ORDERED: HumuLIN R SUB-Q SCH (16:30)
--- NOTE | 2018-11-14 17:42 | Cat Scan Report ---
PROCEDURE: CT ANGIO CHEST TECHNIQUE: Computerized tomographic angiography of the chest was performed during the IV injection o f iodinated nonionic contrast including image processing. The image data was postprocessed using 2-d imensional multiplanar reformatted (MPR) and 3-dimensional (MIP and/or volume rendered) techniques. A utomated exposure control, adjustment of mA and/or kV according to patient size, or iterative reconst ruction dose optimization techniques were utilized. CT DOSE LENGTH PRODUCT: 767 mGycm HISTORY: sob n/v COMPARISONS: None . FINDINGS: Pulmonary out flow tract, right and left main pulmonary arteries and the approximal branches: There is a large saddle embolus present. Large filling defects, pulmonary emboli, also visualized extending into the left lower lobe pulmonary arteries and several of their branches. Moderate size pulmonary e mbolus also visualized extending into the proximal end of the right lower lobe pulmonary artery. Mode rate-sized pulmonary embolus also visualized extending into the lingula with smaller emboli seen exte nding into the left upper lobe pulmonary artery. Pericardium: No evidence of pericardial effusion. Thoracic aorta: No evidence of aneurysmal dilatation or dissection. Coronary arteries: Partially calcified indicating atherosclerotic disease. Mediastinum and hilar regions: Non specific subcentimeter lymph nodes are visualized. No pathologica lly enlarged lymph nodes or masses are identified. Lung [place]: Clear. Upper abdomen: There is increased density dependently in the gallbladder suggesting small layering g allstones. The upper abdomen is otherwise unremarkable. Other: None. IMPRESSION: Large saddle embolus present. There also large pulmonary emboli visualized in the left lower lobe pul monary artery extending into peripheral branches.. Moderate-sized pulmonary emboli visualized in the proximal end of the right lower lobe also extending into the lingula and smaller emboli seen extendin g into the left upper lobe pulmonary artery. Cholelithiasis is suspected as described. This could be confirmed with ultrasound if clinically indic ated. No other abnormalities are seen. Critical value: I discussed these findings in detail with Sarah Kimbrough by phone conversation on 11/14 at 5:37 PM Eastern standard time. This document is electronically signed by Phoenix Shetty MD., November 14 2018 05:40:14 PM ET
--- NOTE | 2018-11-14 18:24 | Magnetic Resonance Report ---
PROCEDURE: MRI brain without contrast. TECHNIQUE: Magnetic resonance imaging of the brain was performed without contrast material. HISTORY: stroke COMPARISONS: CT head 11/14/2018. FINDINGS: Comparison was made to the previous head CT scan. I am fairly confident that the technologist made an error with the digital scanogram images which show the patient's head up side down. This led to a mi stake in the labeling of the right and left sides of the head. The cerebellar abnormality is actually on the left side of the head. The ventricles are normal in size. There is an area of abnormal signal intensity involving the inferi or and central portions of the left cerebellar hemisphere. This also involves a small portion of the cerebellar vermis. There is a very subtle decrease in signal intensity on the T1-weighted images. The re is increased signal intensity on the T2 and FLAIR weighted sequences. There is slight mass effect upon the left side of the fourth ventricle. There is some restricted diffusion, although it is less a pparent than I would expect with a subacute stroke. The findings are still likely the result of a rec ent cerebellar infarct. The timing is uncertain. An infiltrating glioma is possible but considered le ss likely. Correlation with the patient's clinical symptoms is recommended. An MRI scan with contrast enhancement would be the best means of excluding a tumor, but only if clinically indicated by the hi story. The remainder of the brain has normal signal intensity. The major cerebral vascular flow voids are patent. The mastoid air cells and paranasal sinuses are grossly clear. IMPRESSION: Mislabeling of the recent head CT scan as discussed above. Abnormal signal intensity with in the left side of the cerebellum as discussed above. A subacute stroke is considered the most likel y etiology. Please see above comments. This document is electronically signed by Olivier Jacob MD., November 14 2018 06:22:38 PM ET
--- NOTE | 2018-11-14 18:38 | Magnetic Resonance Report ---
PROCEDURE: Magnetic resonance angiogram head without contrast. TECHNIQUE: Axial 3-D [id number] MR angiography of the [place] and brain was performed. The source images were reconstructed in various views using maximum intensity projection. HISTORY: stroke COMPARISONS: None. FINDINGS: There is an occlusion of the distal right internal carotid artery. The distal left internal carotid a rtery is widely patent. Both anterior cerebral arteries are patent. The anterior communicating artery is patent. Both middle cerebral arteries are patent. Both posterior communicating arteries are paten t. Both distal vertebral arteries are patent. Both posterior inferior cerebellar arteries are patent. The basilar artery is patent. The anterior inferior cerebellar arteries do not have bright signal. T his may indicate occlusion. These arteries are very small and are not always visible with MRA imaging however. Both superior cerebellar arteries are small but patent. Both posterior cerebral arteries ar e patent. There are no signs of aneurysm disease. There is no evidence of a vasculitis. 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 Possible occlusions of both anter ior inferior cerebellar arteries versus limitation of the imaging modality. This document is electronically signed by Olivier Jacob MD., November 14 2018 06:36:08 PM ET
[2018-11-14] MEDS: TOPROL XL PO SCH (19:10)
--- NOTE | 2018-11-14 19:18 | Event Note ---
Date: 11/14/18 CTA chest showed saddle PE. Patient is resting and vitally stable, denies chest pain Discussed with Dr. Hua and he will see the patient tomorrow as patient most likely in intermediate risk may not need emergent thrombolysis. Also MRI brain suggesting subacute CVA. Will change lovenox to heparin drip. Transfer the patient to [facility] for close monitoring.
[2018-11-14] MEDS ORDERED: DUONEB *Not for PRN Use IH SCH (20:00)
[2018-11-14 20:29] LABS: Hematocrit 39.3 % (30.3-42.9); Hemoglobin 12.9 gm/dl (10.1-14.3)
[2018-11-14 20:32] LABS: INR 1.14 (0.87-1.13)
[2018-11-14 20:33] LABS: Partial Thromboplastin Time 33.7 Sec. (24.2-36.6)
[2018-11-14] MEDS: HEPARIN/ 0.45% NACL-25,000 UNIT/500 ML 25,000 UNIT/500 ML BAG IV SCH (20:56)
[2018-11-14] MEDS ORDERED: PRAVACHOL PO SCH (22:00)
[2018-11-14] MEDS ORDERED: LANTUS SUB-Q SCH (22:00)
[2018-11-14] MEDS: LANTUS SUB-Q SCH (22:56)
[2018-11-15] MEDS: HumaLOG SUB-Q SCH ×5 (01:00→22:16)
[2018-11-15 03:59] LABS: BUN/Creatinine Ratio 12; Blood Urea Nitrogen 7 mg/dL (7-17); Calcium 8.7 mg/dL (8.4-10.2); Hemolysis Index 3
[2018-11-15] MEDS: HEPARIN/ 0.45% NACL-25,000 UNIT/500 ML 25,000 UNIT/500 ML BAG IV SCH ×2 (07:40→17:18)
[2018-11-15] MEDS: HumuLIN R SUB-Q SCH ×3 (09:30→18:31)
[2018-11-15] MEDS: ASPIRIN PO SCH (10:32)
[2018-11-15] MEDS: PEPCID PO SCH ×2 (10:34→22:16)
[2018-11-15] MEDS: TOPROL XL PO SCH (10:36)
--- NOTE | 2018-11-15 10:51 | Cat Scan Report ---
PROCEDURE: CT HEAD/BRAIN WO CON TECHNIQUE: Computerized tomography of the head was performed without contrast material. CT DOSE LENGTH PRODUCT: mGycm HISTORY: Stroke symptoms COMPARISONS: None . FINDINGS: Skull and scalp: Normal . Paranasal sinuses: Normal . Ventricles and subarachnoid spaces: Normal . Cerebrum: No evidence of hemorrhage, acute infarction or mass . Cerebellum and brainstem: There is cytotoxic edema in the right hemisphere of the cerebellum indicat ing high likelihood of recent ischemic infarction. There is no hemorrhage or significant mass effect. . Vasculature: Normal . IMPRESSION: Suspected recent right cerebellar infarct. There is no hemorrhage, mass effect or midline shift or he rniation. Dr. Skelton was notified by telephone at 3:25 AM. This document is electronically signed by Anthony Guzman MD., November 14 2018 03:20:31 AM ET
--- NOTE | 2018-11-15 11:51 | Consultation ---
History of Present Illness - Reason for Consult Consult date: 11/15/18 Saddle Pulmonary Embolus Requesting physician: NARINDER OCONNOR - History of Present Illness This pt is a 43yo AAF that presented to the ER at [facility] on 11/14/18. She reported persistent N/V over since last week. She apparently was admitted to [facility] and treated with antibiotics. She was subsequently discharged home. Her symptoms became worse. She developed RUE weakness. This prompted her to go to the ER. She has since been admitted. The RUE weakness improved, though she continues to complain of numbness. She was diagnosed with hyperosmolar hyperglycemic nonketotic syndrome. Her blood glucose was >500. An MRI was reported as: Abnormal signal intensity within the left side of the cerebellum as discussed above. A subacute stroke is considered the most likely etiology. Please see above comments. She was also noted to have an elevated D-dimer, and Troponin. Therefore a CTA of the chest was ordered evaluating for possible PE. The report list: Large saddle embolus present. There also large pulmonary emboli visualized in the left lower lobe pulmonary artery extending into peripheral branches.. Moderate-sized pulmonary emboli visualized in the proximal end of the right lower lobe also extending into the lingula and smaller emboli seen extending into the left upper lobe pulmonary artery. A vascular surgery consult has been requested to evaluate for possible thrombolysis/mechanical thrombectomy of pulmonary embolus. Pt denies any SOB or Chest pain. She has bilat lower ext BKA and limited in her mobility. Past History Past Medical History: diabetes, PVD, other Past Surgical History: , Other (bilateral BKA, difficulty healing amputations requiring multiple surgeries and revisions.) Social history: denies: smoking (former smoker), alcohol abuse (drinks alcohol on occasion) Family history: diabetes (father) Medications and Allergies Allergies Allergy/AdvReac Type Severity Reaction Status Date / Time No Known Drug Allergies Allergy Unknown Verified 11/16/17 13:40 Home Medications Medication Instructions Recorded Confirmed Last Taken Type Insulin Aspart [NovoLOG 100 10 units SUB-Q TIDWM 10/07/14 11/14/18 09/02/18 History UNITS/ML VIAL] Insulin Glargine [Lantus VIAL] 30 units SUB-Q QHS 10/07/14 11/14/18 09/02/18 History Metformin HCl [metFORMIN] 1,000 mg PO BID 05/03/17 11/14/18 09/02/18 History Active Meds: Active Medications Acetaminophen (Tylenol) 650 mg PO Q4H PRN PRN Reason: Pain MILD(1-3)/Fever >100.5/OHARA Last Admin: 11/14/18 22:57 Dose: 650 mg Documented by: Aspirin (Aspirin) 325 mg PO QDAY [facility] Last Admin: 11/15/18 10:32 Dose: 325 mg Documented by: Atorvastatin Calcium (Lipitor) 40 mg PO QHS [facility] Last Admin: 11/14/18 22:56 Dose: 40 mg Documented by: Bisacodyl (Dulcolax) 10 mg [place] QDAY PRN PRN Reason: Constipation Dextrose (D50w (25gm) Syringe) 50 ml IV PRN PRN PRN Reason: Hypoglycemia Famotidine (Pepcid) 20 mg PO BID [facility] Last Admin: 11/15/18 10:34 Dose: 20 mg Documented by: Sodium Chloride (Nacl 0.9% 1000 Ml) 1,000 mls @ 125 mls/hr IV DIRECT NARCISA Heparin Sodium/Sodium Chloride (Heparin/ 0.45% Nacl-25,000 Unit/500 Ml) 25,000 unit in 500 mls @ 30 mls/hr IV TITR [facility]; Protocol Last Admin: 11/15/18 07:40 Dose: 1,200 units/hr, 24 mls/hr Documented by: Insulin Glargine (Lantus) 35 units SUB-Q QHS [facility] Last Admin: 11/14/18 22:56 Dose: 35 units Documented by: Insulin Human Lispro (Humalog) 0 unit SUB-Q Q4HR [facility]; Protocol Last Admin: 11/15/18 10:27 Dose: 4 unit Documented by: Insulin Human Regular (Humulin R) 10 units SUB-Q [facility] Last Admin: 11/15/18 09:30 Dose: 10 units Documented by: Magnesium Hydroxide (Milk Of Magnesia) 30 ml PO Q4H PRN PRN Reason: Constipation Metoclopramide HCl (Reglan) 10 mg PO Q6H PRN PRN Reason: Nausea And Vomiting Last Admin: 11/14/18 14:35 Dose: 10 mg Documented by: Metoprolol Succinate (Toprol Xl) 25 mg PO QDAY [facility] Last Admin: 11/15/18 10:36 Dose: Not Given Documented by: Ondansetron HCl (Zofran) 4 mg IV Q8H PRN PRN Reason: Nausea And Vomiting Last Admin: 11/14/18 22:56 Dose: 4 mg Documented by: Promethazine HCl (Phenergan) 25 mg [place] Q6H PRN PRN Reason: Nausea And Vomiting Sodium Chloride (Sodium Chloride Flush Syringe 10 Ml) 10 ml IV PRN PRN PRN Reason: LINE FLUSH Review of Systems All systems: negative Exam - Constitutional Vitals: Temp Pulse Resp BP Pulse Ox 97.9 F 69 12 94/66 99 11/15/18 08:00 11/15/18 10:36 11/15/18 05:31 11/15/18 10:36 11/15/18 10:00 General appearance: Present: no acute distress - EENT Eyes: Present: EOM intact ENT: hearing intact - Neck Neck: Present: supple - Respiratory Respiratory effort: normal - Cardiovascular Rhythm: regular - Extremities Extremities: normal temperature, abnormal (bilat BKA, incisions are well healed) - Psychiatric Psychiatric: appropriate mood/affect, intact judgment & insight, cooperative - Neurologic Neurologic: no focal deficits - Additional findings Additional findings: Results - Labs CBC & Chem 7: 11/14/18 19:48 11/15/18 03:01 Labs: Abnormal lab results 11/14/18 11/14/18 11/14/18 Range/Units 12:32 13:04 17:38 PT (12.2-14.9) Sec. INR (0.87-1.13) Heparin Anti-Xa Level (0.3-0.7) U.I./ml Sodium (137-145) mmol/L Creatinine (0.7-1.2) mg/dL Glucose (65-100) mg/dL POC Glucose 302 H (70-105) Troponin T 0.441 H* D 0.572 H* D (0.00-0.029) ng/mL 11/14/18 11/14/18 11/14/18 Range/Units 17:59 19:48 21:15 PT 15.3 H (12.2-14.9) Sec. INR 1.14 H (0.87-1.13) Heparin Anti-Xa Level (0.3-0.7) U.I./ml Sodium (137-145) mmol/L Creatinine (0.7-1.2) mg/dL Glucose (65-100) mg/dL POC Glucose 313 H 406 H (70-105) Troponin T (0.00-0.029) ng/mL 11/15/18 11/15/18 11/15/18 Range/Units 00:44 03:01 03:01 PT (12.2-14.9) Sec. INR (0.87-1.13) Heparin Anti-Xa Level 1.45 H (0.3-0.7) U.I./ml Sodium 135 L (137-145) mmol/L Creatinine 0.6 L (0.7-1.2) mg/dL Glucose 249 H (65-100) mg/dL POC Glucose 313 H (70-105) Troponin T (0.00-0.029) ng/mL 11/15/18 11/15/18 Range/Units 05:56 09:40 PT (12.2-14.9) Sec. INR (0.87-1.13) Heparin Anti-Xa Level (0.3-0.7) U.I./ml Sodium (137-145) mmol/L Creatinine (0.7-1.2) mg/dL Glucose (65-100) mg/dL POC Glucose 218 H 216 H (70-105) Troponin T (0.00-0.029) ng/mL Assessment and Plan This pt presented with an acute onset of RUE weakness. She was recently hospitalized due to UTI. MRI (during this admission) suggest she likely had a left cerebellar stroke. Further work up revealed a saddle PE with both right and left pulmonary emboli. She has recently been noncompliant with her insulin and was diagnosed with HHNK upon admission. A vascular surgery consult is requested to further evaluate. She denies any recent CP or SOB Review of her home medications does not list any antiplatelet medications. The pt appears to be hemodynamically stable, and tolerating intravenous anticoagulation at this time. Therefore, do not recommend urgent intervention at this point. Her CT scan does suggest right sided heart strain, in addition to elevated troponins upon admission. Potentially placing her at risk for [facility] sequelae. An Echocardiogram has been ordered. Await results to clarify the presence of right heart strain. Based upon these results she may need to be considered for mechanical thrombectomy. Given the "Acute" vs "Subacute" CVA, she is not likely a candidate for thrombolytic therapy. In addition the echo will need to evaluate for PFO/septal wall defect, which would be concerning for possible paradoxical embolus. I have ordered a venous duplex of the lower extremities, and carotid duplex. She may also need an additional CTA of the head and neck as part of her stroke work up.
--- NOTE | 2018-11-15 12:15 | Consultation ---
Past History Past Medical History: diabetes, other (BLE amputations) Past Surgical History: Other (bilateral BKA) Social history: no significant social history Family history: no significant family history Medications and Allergies Allergies Allergy/AdvReac Type Severity Reaction Status Date / Time No Known Drug Allergies Allergy Unknown Verified 11/16/17 13:40 Home Medications Medication Instructions Recorded Confirmed Last Taken Type Insulin Aspart [NovoLOG 100 10 units SUB-Q TIDWM 10/07/14 11/14/18 09/02/18 History UNITS/ML VIAL] Insulin Glargine [Lantus VIAL] 30 units SUB-Q QHS 10/07/14 11/14/18 09/02/18 History Metformin HCl [metFORMIN] 1,000 mg PO BID 05/03/17 11/14/18 09/02/18 History Active Meds: Active Medications Acetaminophen (Tylenol) 650 mg PO Q4H PRN PRN Reason: Pain MILD(1-3)/Fever >100.5/OHARA Last Admin: 11/14/18 22:57 Dose: 650 mg Documented by: Aspirin (Aspirin) 325 mg PO QDAY [facility] Last Admin: 11/15/18 10:32 Dose: 325 mg Documented by: Atorvastatin Calcium (Lipitor) 40 mg PO QHS [facility] Last Admin: 11/14/18 22:56 Dose: 40 mg Documented by: Bisacodyl (Dulcolax) 10 mg [place] QDAY PRN PRN Reason: Constipation Dextrose (D50w (25gm) Syringe) 50 ml IV PRN PRN PRN Reason: Hypoglycemia Famotidine (Pepcid) 20 mg PO BID [facility] Last Admin: 11/15/18 10:34 Dose: 20 mg Documented by: Sodium Chloride (Nacl 0.9% 1000 Ml) 1,000 mls @ 125 mls/hr IV DIRECT NARCISA Heparin Sodium/Sodium Chloride (Heparin/ 0.45% Nacl-25,000 Unit/500 Ml) 25,000 unit in 500 mls @ 30 mls/hr IV TITR [facility]; Protocol Last Admin: 11/15/18 07:40 Dose: 1,200 units/hr, 24 mls/hr Documented by: Insulin Glargine (Lantus) 35 units SUB-Q QHS [facility] Last Admin: 11/14/18 22:56 Dose: 35 units Documented by: Insulin Human Lispro (Humalog) 0 unit SUB-Q ACHS [facility]; Protocol Insulin Human Regular (Humulin R) 10 units SUB-Q AC [facility] Last Admin: 11/15/18 09:30 Dose: 10 units Documented by: Magnesium Hydroxide (Milk Of Magnesia) 30 ml PO Q4H PRN PRN Reason: Constipation Metoclopramide HCl (Reglan) 10 mg PO Q6H PRN PRN Reason: Nausea And Vomiting Last Admin: 11/14/18 14:35 Dose: 10 mg Documented by: Metoprolol Succinate (Toprol Xl) 25 mg PO QDAY [facility] Last Admin: 11/15/18 10:36 Dose: Not Given Documented by: Ondansetron HCl (Zofran) 4 mg IV Q8H PRN PRN Reason: Nausea And Vomiting Last Admin: 11/14/18 22:56 Dose: 4 mg Documented by: Promethazine HCl (Phenergan) 25 mg [place] Q6H PRN PRN Reason: Nausea And Vomiting Sodium Chloride (Sodium Chloride Flush Syringe 10 Ml) 10 ml IV PRN PRN PRN Reason: LINE FLUSH Physical Examination - Vital Signs Vital Signs: Vital Signs Temp Pulse Resp BP Pulse Ox 98.2 F 94 H 12 160/100 99 11/14/18 02:28 11/14/18 02:28 11/14/18 02:28 11/14/18 02:28 11/14/18 02:28 Results - Laboratory Findings CBC and BMP: 11/14/18 19:48 11/15/18 03:01 Abnormal Lab Findings: Abnormal Labs 11/14/18 11/14/18 11/14/18 02:56 03:39 03:39 Hgb 14.9 H Hct 44.8 H Lymph % (Auto) 10.0 L Lymph # 1.0 L Seg Neutrophils % 84.6 H Seg Neutrophils # 8.3 H PT INR APTT 23.8 L D-Dimer 5514.54 H Heparin Anti-Xa Level VBG pH Sodium Chloride Creatinine Glucose POC Glucose 399 H Hemoglobin A1c Lactic Acid CK-MB (CK-2) CK-MB (CK-2) Rel Index Troponin T Albumin Cholesterol LDL Cholesterol Direct Ur Specific [place] 11/14/18 11/14/18 11/14/18 03:39 03:39 03:39 Hgb Hct Lymph % (Auto) Lymph # Seg Neutrophils % Seg Neutrophils # PT INR APTT D-Dimer Heparin Anti-Xa Level VBG pH 7.304 L Sodium Chloride Creatinine Glucose POC Glucose Hemoglobin A1c Lactic Acid 3.10 H* CK-MB (CK-2) 8.4 H CK-MB (CK-2) Rel Index 7.6 H Troponin T 0.217 H* Albumin Cholesterol 220 H LDL Cholesterol Direct 163 H Ur Specific [place] 11/14/18 11/14/18 11/14/18 03:39 04:04 05:15 Hgb Hct Lymph % (Auto) Lymph # Seg Neutrophils % Seg Neutrophils # PT INR APTT D-Dimer Heparin Anti-Xa Level VBG pH Sodium 133 L Chloride 91.8 L Creatinine Glucose 461 H POC Glucose 321 H Hemoglobin A1c Lactic Acid CK-MB (CK-2) CK-MB (CK-2) Rel Index Troponin T Albumin 3.7 L Cholesterol LDL Cholesterol Direct Ur Specific [place] 1.032 H 11/14/18 11/14/18 11/14/18 05:51 08:08 12:32 Hgb Hct Lymph % (Auto) Lymph # Seg Neutrophils % Seg Neutrophils # PT INR APTT D-Dimer Heparin Anti-Xa Level VBG pH Sodium Chloride Creatinine Glucose POC Glucose 281 H 302 H Hemoglobin A1c 13.3 H Lactic Acid CK-MB (CK-2) CK-MB (CK-2) Rel Index Troponin T Albumin Cholesterol LDL Cholesterol Direct Ur Specific [place] 11/14/18 11/14/18 11/14/18 13:04 17:38 17:59 Hgb Hct Lymph % (Auto) Lymph # Seg Neutrophils % Seg Neutrophils # PT INR APTT D-Dimer Heparin Anti-Xa Level VBG pH Sodium Chloride Creatinine Glucose POC Glucose 313 H Hemoglobin A1c Lactic Acid CK-MB (CK-2) CK-MB (CK-2) Rel Index Troponin T 0.441 H* D 0.572 H* D Albumin Cholesterol LDL Cholesterol Direct Ur Specific [place] 11/14/18 11/14/18 11/15/18 19:48 21:15 00:44 Hgb Hct Lymph % (Auto) Lymph # Seg Neutrophils % Seg Neutrophils # PT 15.3 H INR 1.14 H APTT D-Dimer Heparin Anti-Xa Level VBG pH Sodium Chloride Creatinine Glucose POC Glucose 406 H 313 H Hemoglobin A1c Lactic Acid CK-MB (CK-2) CK-MB (CK-2) Rel Index Troponin T Albumin Cholesterol LDL Cholesterol Direct Ur Specific [place] 11/15/18 11/15/18 11/15/18 03:01 03:01 05:56 Hgb Hct Lymph % (Auto) Lymph # Seg Neutrophils % Seg Neutrophils # PT INR APTT D-Dimer Heparin Anti-Xa Level 1.45 H VBG pH Sodium 135 L Chloride Creatinine 0.6 L Glucose 249 H POC Glucose 218 H Hemoglobin A1c Lactic Acid CK-MB (CK-2) CK-MB (CK-2) Rel Index Troponin T Albumin Cholesterol LDL Cholesterol Direct Ur Specific [place] 11/15/18 09:40 Hgb Hct Lymph % (Auto) Lymph # Seg Neutrophils % Seg Neutrophils # PT INR APTT D-Dimer Heparin Anti-Xa Level VBG pH Sodium Chloride Creatinine Glucose POC Glucose 216 H Hemoglobin A1c Lactic Acid CK-MB (CK-2) CK-MB (CK-2) Rel Index Troponin T Albumin Cholesterol LDL Cholesterol Direct Ur Specific [place] Assessment and Plan Ms. Bernard is a 43-year-old female with the history of multiple medical program including but not limited to, hypertension, diabetes, with below knee amputation on both sides from complication of poorly controlled diabetes. The patient presented to the emergency room with multiple complaint including numbness in the right upper extremity associated neck pain and also nausea vomiting and abdominal pain. A stroke was suspected but since she was out of the window for TPA administration it is not given. Physical examination. The patient is alert and appropriate has insight into her problems and answers questions appropriately. Heart. Normal rate and rhythm. Carotids. Both palpable. Cranial nerves. All cranial nerves are within normal limit. Motor. Patient has stiffness and tenderness in cervical paraspinal muscles on the right side. 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 Reflexes. Patient has decreased biceps, triceps and brachial radialis reflexes on the right side he did Sensory. Patient has decreased sensation to pinprick on C5, C6 and C7 dermatomes. Gait. Normal gait. Impression #1 patient has no evidence of stroke, patient has evidence of multiple cervical radiculopathies involving right C5, C6 and C7 nerve roots may be from disc protrusion. Recommendation. #1. patient will get MRI of the cervical spine to look for probable disc protruded in the pressure on #2. Patient should be advised not to pull, push or lift more than 10 pounds with her right upper extremity. #3. Patient shall be given Flexeril 5 mg by mouth twice a day for 2-3 days then as needed when necessary. #4. Patient should be followed up by a neurosurgeon after the MRI is done to determine whether she is a surgical candidate or not
--- NOTE | 2018-11-15 13:42 | Progress Note ---
Assessment and Plan Pt presented with HHNK, n/v, right-sided weakness, elevated troponin. Found to have large saddle PE with both right and left pulmonary emboli overnight. Initiated on heparin gtt. Also, head CT shows suspected recent right cerebellar infarct. Per neurology, patient has no evidence of stroke, patient has evidence of multiple cervical radiculopathies involving right C5, C6 and C7 nerve roots may be from disc protrusion. MRI pending. Per vascular team, pt appears to be hemodynamically stable, and tolerating intravenous anticoagulation at this time. Therefore, do not recommend urgent intervention at this point. Her CT scan does suggest right sided heart strain, in addition to elevated troponins upon admission. Await echo. Based upon these results she may need to be considered for mechanical thrombectomy. The patient has been seen in conjunction with Dr. Carnes who agrees with the assessment and plan of care. - Patient Problems (1) Acute pulmonary embolism Current Visit: Yes Status: Acute (2) CVA (cerebral vascular accident) Current Visit: Yes Status: Suspected (3) HHNC (hyperglycemic hyperosmolar nonketotic coma) Current Visit: Yes Status: Acute (4) Diabetes Current Visit: Yes Status: Chronic (5) Noncompliance with diabetes treatment Current Visit: Yes Status: Chronic (6) Nausea and vomiting Current Visit: Yes Status: Acute (7) Right sided weakness Current Visit: Yes Status: Acute (8) Obesity Current Visit: Yes Status: Chronic (9) S/P amputation Current Visit: Yes Status: Chronic (10) NSTEMI (non-ST elevated myocardial infarction) Current Visit: Yes Status: Acute (11) Dyslipidemia Current Visit: Yes Status: Chronic Subjective Date of service: 11/15/18 Principal diagnosis: PE; ? CVA; HHNK; elevated trop Interval history: pt resting comfortably in bed, no apparent distress, no complaints, flat affect. VSS. Objective Last Vital Signs Temp 97.6 F 11/15/18 12:00 Pulse 69 11/15/18 12:01 Resp 11 L 11/15/18 12:01 BP 111/74 11/15/18 12:01 Pulse Ox 98 11/15/18 12:01 - Physical Examination General: No Apparent Distress HEENT: Positive: PERRL, Normocephaly, Mucus Membranes Moist Neck: Positive: neck supple, trachea midline Cardiac: Positive: Reg Rate and Rhythm, S1/S2 Lungs: Positive: Decreased Breath Sounds Neuro: Positive: Grossly Intact Abdomen: Positive: Soft. Negative: Tender Skin: Positive: Rash. Negative: Wound Musculoskeletal: No Pain Extremities: Absent: edema - Labs and Meds Coagulation 11/14/18 Range/Units 19:48 PT 15.3 H (12.2-14.9) Sec. INR 1.14 H (0.87-1.13) APTT 33.7 (24.2-36.6) Sec. CBC 11/14/18 Range/Units 19:48 Hgb 12.9 (10.1-14.3) gm/dl Hct 39.3 (30.3-42.9) % Plt Count 198 (140-440) K/mm3 Comprehensive Metabolic Panel 11/15/18 Range/Units 03:01 Sodium 135 L (137-145) mmol/L Potassium 3.6 D (3.6-5.0) mmol/L Chloride 100.7 (98-107) mmol/L Carbon Dioxide 23 (22-30) mmol/L BUN 7 (7-17) mg/dL Creatinine 0.6 L (0.7-1.2) mg/dL Glucose 249 H (65-100) mg/dL Calcium 8.7 (8.4-10.2) mg/dL - Imaging and Cardiology EKG: report reviewed, image reviewed Echo: pending - EKG Sinus rhythms and dysrhythmias: sinus rhythm Myocardial infarction: inferior [place] (old age inde, anterior [place] (old age or i
--- NOTE | 2018-11-15 14:28 | Consultation ---
History of Present Illness Consult date: 11/15/18 Requesting physician: NARINDER OCONNOR Reason for consult: pulmonary embolism (Saddle embolism) History of present illness: PCCM CONSULT (Full dictation # [id number]) Please see dictated notes for full details Past History Past Medical History: diabetes, PVD, other Past Surgical History: , Other (bilateral BKA, difficulty healing amputations requiring multiple surgeries and revisions.) Social history: denies: smoking (former smoker), alcohol abuse (drinks alcohol on occasion) Family history: diabetes (father) Medications and Allergies Allergies Allergy/AdvReac Type Severity Reaction Status Date / Time No Known Drug Allergies Allergy Unknown Verified 11/16/17 13:40 Home Medications Medication Instructions Recorded Confirmed Last Taken Type Metformin HCl [metFORMIN] 1,000 mg PO BID 05/03/17 11/14/18 09/02/18 History Apixaban [Eliquis] 5 mg PO Q12HR #60 tablet 11/18/18 Unknown Rx Apixaban [Eliquis] 10 mg PO Q12HR #12 tablet 11/18/18 Unknown Rx Aspirin [Aspirin BABY CHEW TAB] 81 mg PO QDAY #30 tab.chew 11/18/18 Unknown Rx AtorvaSTATin [Lipitor] 40 mg PO QHS #30 tablet 11/18/18 Unknown Rx Insulin Aspart [NovoLOG 100 10 units SUB-Q TIDWM #10 ml 11/18/18 Unknown Rx UNITS/ML VIAL] Insulin Glargine [Lantus VIAL] 30 units SUB-Q QHS #10 ml 11/18/18 Unknown Rx Metoclopramide [Reglan TAB] 10 mg PO Q6H PRN #30 tablet 11/18/18 Unknown Rx Active Meds: Active Medications Acetaminophen (Tylenol) 650 mg PO Q4H PRN PRN Reason: Pain MILD(1-3)/Fever >100.5/OHARA Last Admin: 11/14/18 22:57 Dose: 650 mg Documented by: Aspirin (Aspirin) 325 mg PO QDAY [facility] Last Admin: 11/15/18 10:32 Dose: 325 mg Documented by: Atorvastatin Calcium (Lipitor) 40 mg PO QHS [facility] Last Admin: 11/14/18 22:56 Dose: 40 mg Documented by: Bisacodyl (Dulcolax) 10 mg RI QDAY PRN PRN Reason: Constipation Dextrose (D50w (25gm) Syringe) 50 ml IV PRN PRN PRN Reason: Hypoglycemia Famotidine (Pepcid) 20 mg PO BID [facility] Last Admin: 11/15/18 10:34 Dose: 20 mg Documented by: Sodium Chloride (Nacl 0.9% 1000 Ml) 1,000 mls @ 125 mls/hr IV DIRECT NARCISA Heparin Sodium/Sodium Chloride (Heparin/ 0.45% Nacl-25,000 Unit/500 Ml) 25,000 unit in 500 mls @ 30 mls/hr IV TITR NARCISA; Protocol Last Admin: 11/15/18 07:40 Dose: 1,200 units/hr, 24 mls/hr Documented by: Insulin Glargine (Lantus) 35 units SUB-Q QHS [facility] Last Admin: 11/14/18 22:56 Dose: 35 units Documented by: Insulin Human Lispro (Humalog) 0 unit SUB-Q ACHS [facility]; Protocol Insulin Human Regular (Humulin R) 10 units SUB-Q AC [facility] Last Admin: 11/15/18 12:45 Dose: 10 units Documented by: Magnesium Hydroxide (Milk Of Magnesia) 30 ml PO Q4H PRN PRN Reason: Constipation Metoclopramide HCl (Reglan) 10 mg PO Q6H PRN PRN Reason: Nausea And Vomiting Last Admin: 11/14/18 14:35 Dose: 10 mg Documented by: Ondansetron HCl (Zofran) 4 mg IV Q8H PRN PRN Reason: Nausea And Vomiting Last Admin: 11/14/18 22:56 Dose: 4 mg Documented by: Promethazine HCl (Phenergan) 25 mg RI Q6H PRN PRN Reason: Nausea And Vomiting Sodium Chloride (Sodium Chloride Flush Syringe 10 Ml) 10 ml IV PRN PRN PRN Reason: LINE FLUSH Physical Examination Vital signs: Vital Signs Temp Pulse Resp BP Pulse Ox 98.2 F 94 H 12 160/100 99 11/14/18 02:28 11/14/18 02:28 11/14/18 02:28 11/14/18 02:28 11/14/18 02:28 Results - Laboratory Findings CBC and BMP: 11/18/18 04:09 11/18/18 04:09 PT/INR, D-dimer PT 15.3 Sec. (12.2-14.9) H 11/14/18 19:48 INR 1.14 (0.87-1.13) H 11/14/18 19:48 5514.54 ng/mlDDU (0-234) H 11/14/18 03:39 Abnormal lab findings: Abnormal Labs 11/14/18 11/14/18 11/14/18 02:56 03:39 03:39 Hgb 14.9 H Hct 44.8 H Lymph % (Auto) 10.0 L Lymph # 1.0 L Seg Neutrophils % 84.6 H Seg Neutrophils # 8.3 H PT INR APTT 23.8 L D-Dimer 5514.54 H Heparin Anti-Xa Level VBG pH Sodium Chloride Creatinine Glucose POC Glucose 399 H Hemoglobin A1c Lactic Acid CK-MB (CK-2) CK-MB (CK-2) Rel Index Troponin T Albumin Cholesterol LDL Cholesterol Direct Ur Specific [place] 11/14/18 11/14/18 11/14/18 03:39 03:39 03:39 Hgb Hct Lymph % (Auto) Lymph # Seg Neutrophils % Seg Neutrophils # PT INR APTT D-Dimer Heparin Anti-Xa Level VBG pH 7.304 L Sodium Chloride Creatinine Glucose POC Glucose Hemoglobin A1c Lactic Acid 3.10 H* CK-MB (CK-2) 8.4 H CK-MB (CK-2) Rel Index 7.6 H Troponin T 0.217 H* Albumin Cholesterol 220 H LDL Cholesterol Direct 163 H Ur Specific [place] 11/14/18 11/14/18 11/14/18 03:39 04:04 05:15 Hgb Hct Lymph % (Auto) Lymph # Seg Neutrophils % Seg Neutrophils # PT INR APTT D-Dimer Heparin Anti-Xa Level VBG pH Sodium 133 L Chloride 91.8 L Creatinine Glucose 461 H POC Glucose 321 H Hemoglobin A1c Lactic Acid CK-MB (CK-2) CK-MB (CK-2) Rel Index Troponin T Albumin 3.7 L Cholesterol LDL Cholesterol Direct Ur Specific [place] 1.032 H 11/14/18 11/14/18 11/14/18 05:51 08:08 12:32 Hgb Hct Lymph % (Auto) Lymph # Seg Neutrophils % Seg Neutrophils # PT INR APTT D-Dimer Heparin Anti-Xa Level VBG pH Sodium Chloride Creatinine Glucose POC Glucose 281 H 302 H Hemoglobin A1c 13.3 H Lactic Acid CK-MB (CK-2) CK-MB (CK-2) Rel Index Troponin T Albumin Cholesterol LDL Cholesterol Direct Ur Specific [place] 11/14/18 11/14/18 11/14/18 13:04 17:38 17:59 Hgb Hct Lymph % (Auto) Lymph # Seg Neutrophils % Seg Neutrophils # PT INR APTT D-Dimer Heparin Anti-Xa Level VBG pH Sodium Chloride Creatinine Glucose POC Glucose 313 H Hemoglobin A1c Lactic Acid CK-MB (CK-2) CK-MB (CK-2) Rel Index Troponin T 0.441 H* D 0.572 H* D Albumin Cholesterol LDL Cholesterol Direct Ur Specific [place] 11/14/18 11/14/18 11/15/18 19:48 21:15 00:44 Hgb Hct Lymph % (Auto) Lymph # Seg Neutrophils % Seg Neutrophils # PT 15.3 H INR 1.14 H APTT D-Dimer Heparin Anti-Xa Level VBG pH Sodium Chloride Creatinine Glucose POC Glucose 406 H 313 H Hemoglobin A1c Lactic Acid CK-MB (CK-2) CK-MB (CK-2) Rel Index Troponin T Albumin Cholesterol LDL Cholesterol Direct Ur Specific [place] 11/15/18 11/15/18 11/15/18 03:01 03:01 05:56 Hgb Hct Lymph % (Auto) Lymph # Seg Neutrophils % Seg Neutrophils # PT INR APTT D-Dimer Heparin Anti-Xa Level 1.45 H VBG pH Sodium 135 L Chloride Creatinine 0.6 L Glucose 249 H POC Glucose 218 H Hemoglobin A1c Lactic Acid CK-MB (CK-2) CK-MB (CK-2) Rel Index Troponin T Albumin Cholesterol LDL Cholesterol Direct Ur Specific [place] 11/15/18 11/15/18 09:40 12:07 Hgb Hct Lymph % (Auto) Lymph # Seg Neutrophils % Seg Neutrophils # PT INR APTT D-Dimer Heparin Anti-Xa Level VBG pH Sodium Chloride Creatinine Glucose POC Glucose 216 H 211 H Hemoglobin A1c Lactic Acid CK-MB (CK-2) CK-MB (CK-2) Rel Index Troponin T Albumin Cholesterol LDL Cholesterol Direct Ur Specific [place]
--- NOTE | 2018-11-15 16:09 | Progress Note ---
Assessment and Plan CTA chest showed saddle PE. -Patient is resting and vitally stable, denies chest pain -Also MRI brain suggesting subacute CVA. changed lovenox to heparin drip. - Transferred the patient to [facility] for close monitoring. Vascular consulted for possible thrombolysis -wait for 2-D echocardiogram result Subacute versus chronic CVA - No acute stroke based on MRI finding and per neuro - Continue to manage strict glycemic control, aspirin and statin Hyperosmolar hyperglycemic nonketotic syndrome - continue insulin and adjust doses as needed - We will continue IV fluid hydration with normal saline - We will replace potassium and magnesium as needed Uncontrolled insulin-dependent diabetes mellitus type 2 - Counseled for compliance, A1c 13.3 - Monitor blood glucose and adjust insulin dose as needed NSTEMI type II - d-dimer elevated, CTA chest pending - Continue aspirin and statin, trend troponin - Cardiology consulted, cont therapeutic lovenox Hyponatremia, likely due to hyperglycemia - Repeat BMP, continue IV fluid Hyperlipidemia, continue statin Morbid obesity, nutritional consult Peripheral artery disease s/P BLE amputations - Supportive care DVt Px, on lovenox Brief History: The patient is a 43-year-old female with a past medical history of PVD s/p BLE amputations, DM, morbid obesity, noncompliance with medications presented with complaints of weakness, nausea and vomiting. Patient reports feeling weak and tired, she had multiple episodes of nausea and vomiting, she also had right abd ominal cramp and right-sided weakness and thus decided to seek medical attention. Following arrival, pt diagnosed with HHNK, elevated troponin. Place him on therapeutic dose of Lovenox. CTA chest showed saddle emboli, change AC to heparin drip. MRI showed subacute CVA and no acute stroke. Vascular, neurology, cardiology, pulmonary following Radiological data: Head CT no acute CVA. chest CTA saddle pulmonary emboli. Hospitalist Physical exam: GENERAL: well-developed morbidly obese lying on bed appeared to be in no discomfort. HEENT: Normocephalic. Atraumatic. No conjunctival congestion or icterus. Patient has moist mucous membranes. NECK: Supple. Trachea midline. CHEST/LUNGS: Clear to auscultated bilaterally, breathing nonlabored. No wheezes crackles or rhonchi. HEART/CARDIOVASCULAR: Regular in rate and rhythm. S1 and S2 positive. ABDOMEN: Abdomen is soft, nontender. Patient has normal bowel sounds. SKIN: There is no rash. Warm and dry. NEURO: No focal motor deficit. Follows command. MUSCULOSKELETAL: No joint effusion or tenderness. EXTRIMITY: No edema, no cyanosis or clubbing. PSYCH: Cooperative. Subjective Date of service: 11/15/18 Principal diagnosis: PE; ? CVA; HHNK; elevated trop Interval history: Patient seen and examined. Medical records and medication list reviewed. No acute event overnight noted by the RN. Patient denies any chest pain or difficulty breathing. Patient is tolerating clear liquid diet. Discussed plan of care at bedside with patient. Objective - Constitutional Vitals: Vital Signs - 12hr 11/15/18 11/15/18 11/15/18 04:11 04:21 04:31 Temperature Pulse Rate 78 73 72 Pulse Rate [ From Monitor] Respiratory 11 L 12 13 Rate Blood Pressure 105/71 105/71 105/71 O2 Sat by Pulse 100 100 100 Oximetry 11/15/18 11/15/18 11/15/18 04:36 04:41 04:51 Temperature Pulse Rate 71 74 Pulse Rate [ 75 From Monitor] Respiratory 15 9 L 10 L Rate Blood Pressure 121/76 121/76 O2 Sat by Pulse 99 100 100 Oximetry 11/15/18 11/15/18 11/15/18 05:01 05:11 05:21 Temperature Pulse Rate 72 71 73 Pulse Rate [ From Monitor] Respiratory 11 L 10 L 12 Rate Blood Pressure 121/76 121/76 121/76 O2 Sat by Pulse 100 99 99 Oximetry 11/15/18 11/15/18 11/15/18 05:31 05:59 06:01 Temperature Pulse Rate 74 74 73 Pulse Rate [ From Monitor] Respiratory 12 12 Rate Blood Pressure 121/76 121/76 O2 Sat by Pulse 99 98 Oximetry 11/15/18 11/15/18 11/15/18 07:01 08:00 09:01 Temperature 97.9 F Pulse Rate 64 64 70 Pulse Rate [ 98 H From Monitor] Respiratory 9 L 10 L 11 L Rate Blood Pressure 121/76 103/61 103/61 O2 Sat by Pulse 100 100 99 Oximetry 11/15/18 11/15/18 11/15/18 10:00 10:36 11:00 Temperature Pulse Rate 67 69 71 Pulse Rate [ From Monitor] Respiratory 15 13 Rate Blood Pressure 94/66 94/66 111/74 O2 Sat by Pulse 96 Oximetry 11/15/18 11/15/18 12:00 12:01 Temperature 97.6 F Pulse Rate 69 Pulse Rate [ 101 H From Monitor] Respiratory 18 11 L Rate Blood Pressure 111/74 O2 Sat by Pulse 99 98 Oximetry - Labs CBC & Chem 7: 11/16/18 04:53 11/16/18 04:53 Labs: Abnormal lab results 11/14/18 11/14/18 11/14/18 Range/Units 17:38 17:59 19:48 PT 15.3 H (12.2-14.9) Sec. INR 1.14 H (0.87-1.13) Heparin Anti-Xa Level (0.3-0.7) U.I./ml Sodium (137-145) mmol/L Creatinine (0.7-1.2) mg/dL Glucose (65-100) mg/dL POC Glucose 313 H (70-105) Troponin T 0.572 H* D (0.00-0.029) ng/mL 11/14/18 11/15/18 11/15/18 Range/Units 21:15 00:44 03:01 PT (12.2-14.9) Sec. INR (0.87-1.13) Heparin Anti-Xa Level (0.3-0.7) U.I./ml Sodium 135 L (137-145) mmol/L Creatinine 0.6 L (0.7-1.2) mg/dL Glucose 249 H (65-100) mg/dL POC Glucose 406 H 313 H (70-105) Troponin T (0.00-0.029) ng/mL 11/15/18 11/15/18 11/15/18 Range/Units 03:01 05:56 09:40 PT (12.2-14.9) Sec. INR (0.87-1.13) Heparin Anti-Xa Level 1.45 H (0.3-0.7) U.I./ml Sodium (137-145) mmol/L Creatinine (0.7-1.2) mg/dL Glucose (65-100) mg/dL POC Glucose 218 H 216 H (70-105) Troponin T (0.00-0.029) ng/mL 11/15/18 Range/Units 12:07 PT (12.2-14.9) Sec. INR (0.87-1.13) Heparin Anti-Xa Level (0.3-0.7) U.I./ml Sodium (137-145) mmol/L Creatinine (0.7-1.2) mg/dL Glucose (65-100) mg/dL POC Glucose 211 H (70-105) Troponin T (0.00-0.029) ng/mL
--- NOTE | 2018-11-15 16:27 | Vascular Lab Report ---
PROCEDURE: VL CAROTID DUPLEX BILAT HISTORY: CVA FINDINGS: Real-time ultrasound of the cervical arterial vasculature was performed using grayscale and color Doppler images. On the right, minimal flow is present in the proximal common carotid artery but the mid and distal co mmon carotid arteries appear occluded. The internal carotid and external carotid artery are occluded. Flow is present in the vertebral artery, antegrade at 42 cm/s. On the left, peak systolic velocity in the common carotid artery was 114 cm/s. In the internal caroti d it was 86 cm/s and in the external carotid 77 cm/s. Flow in the vertebral artery was antegrade at 5 8 cm/s. The ratio of flow of the internal carotid to the common carotid was 0.75 which is within norm al limits. 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
--- NOTE | 2018-11-15 17:33 | Vascular Lab Report ---
PROCEDURE: VL VENOUS DUPLEX LE BILAT TECHNIQUE: Ultrasound deep venous system bilateral lower extremities with pulsed and color Doppler e valuation HISTORY: PE COMPARISONS: FINDINGS: There is normal vascular flow waveform within the deep venous system of the lower extremities from th e common femoral through the visualized proximal calf veins. Normal sonographic appearance and compre ssibility IMPRESSION: No evidence for deep venous thrombosis. This document is electronically signed by Christiano Fernandes MD., November 15 2018 05:31:34 PM ET
[2018-11-15] MEDS: ZOFRAN IV PRN (18:26)
[2018-11-15] MEDS: LANTUS SUB-Q SCH (22:16)
[2018-11-16 05:44] LABS: BUN/Creatinine Ratio 13; Blood Urea Nitrogen 10 mg/dL (7-17); Calcium 8.7 mg/dL (8.4-10.2); Hemolysis Index 15
[2018-11-16 06:26] LABS: Basophils % (Auto) 0.3 % (0.0-1.8); Eosinophils # (Auto) 0.1 K/mm3 (0.0-0.4); Eosinophils % (Auto) 0.8 % (0.0-4.3); Hematocrit 37.8 % (30.3-42.9); Hemoglobin 12.7 gm/dl (10.1-14.3); Lymphocytes # (Auto) 1.8 K/mm3 (1.2-5.4); Lymphocytes % (Auto) 25.5 % (13.4-35.0); Mean Corpuscular HGB Conc 34 % (30-34); Mean Corpuscular Volume 91 fl (79-97); Monocytes # (Auto) 0.5 K/mm3 (0.0-0.8); Monocytes % (Auto) 7.1 % (0.0-7.3); Platelet Count 207 K/mm3 (140-440); Red Blood Count 4.16 M/mm3 (3.65-5.03); Red Cell Distribution Width 14.1 % (13.2-15.2)
--- NOTE | 2018-11-16 07:16 | Progress Note ---
Assessment and Plan Saddle pulmonary embolism. Subacute versus chronic CVA - No acute stroke based on MRI Hyperosmolar hyperglycemic state Uncontrolled insulin-dependent diabetes mellitus type 2 NSTEMI type II Hyponatremia Hyperlipidemia Extreme obesity, BMI 50.6 Peripheral artery disease s/P BLE amputations Subjective Date of service: 11/16/18 Principal diagnosis: PE; ? CVA; HHNK; elevated trop Interval history: Patient is seen today for: saddle PE Seen and examined at bedside; 24hour events reviewed; nursing and respiratory care staff consulted; no adverse overnight events reported to me; Sitting up in bed having breakfast. Denies any chest pain, no shortness of breath Objective - Exam Narrative Exam: GENERAL: well-developed morbidly obese lying on bed appeared to be in no discomfort. HEENT: Normocephalic. Atraumatic. No conjunctival congestion or icterus. Patient has moist mucous membranes. NECK: Supple. Trachea midline. CHEST/LUNGS: Clear to auscultated bilaterally, breathing non labored. No wheezes crackles or rhonchi. HEART/CARDIOVASCULAR: Regular in rate and rhythm. S1 and S2 positive. ABDOMEN: Abdomen is soft, non tender. Patient has normal bowel sounds. SKIN: There is no rash. Warm and dry. NEURO: No focal motor deficit. Follows command. MUSCULOSKELETAL: No joint effusion or tenderness. EXTREMITY: s/p bilateral (BKA) amputations PSYCH: Cooperative. Vital Signs - 12hr 11/15/18 11/15/18 11/15/18 20:00 20:13 20:30 Temperature 98 F 98 F Pulse Rate 73 Pulse Rate [ 72 From Monitor] Respiratory 11 L Rate Blood Pressure 120/79 O2 Sat by Pulse 99 100 Oximetry 11/15/18 11/15/18 11/15/18 21:01 22:00 23:00 Temperature Pulse Rate 70 79 83 Pulse Rate [ From Monitor] Respiratory 10 L 17 12 Rate Blood Pressure 107/53 118/67 127/76 O2 Sat by Pulse 99 97 98 Oximetry 11/16/18 11/16/18 11/16/18 00:00 01:00 02:00 Temperature 98.1 F Pulse Rate 80 78 76 Pulse Rate [ 80 From Monitor] Respiratory 12 13 11 L Rate Blood Pressure 110/72 115/80 96/60 O2 Sat by Pulse 98 98 98 Oximetry 11/16/18 11/16/18 11/16/18 03:01 04:00 04:53 Temperature 98.3 F 98.3 F Pulse Rate 82 85 Pulse Rate [ 86 From Monitor] Respiratory 11 L 16 Rate Blood Pressure 124/78 124/77 O2 Sat by Pulse 97 98 Oximetry CBC and BMP: 11/16/18 04:53 11/16/18 04:53 ABG, PT/INR, D-dimer: PT/INR, D-dimer PT 15.3 Sec. (12.2-14.9) H 11/14/18 19:48 INR 1.14 (0.87-1.13) H 11/14/18 19:48 5514.54 ng/mlDDU (0-234) H 11/14/18 03:39 Abnormal lab findings: Abnormal Labs 11/14/18 11/14/18 11/14/18 02:56 03:39 03:39 Hgb 14.9 H Hct 44.8 H Lymph % (Auto) 10.0 L Lymph # 1.0 L Seg Neutrophils % 84.6 H Seg Neutrophils # 8.3 H PT INR APTT 23.8 L D-Dimer 5514.54 H Heparin Anti-Xa Level VBG pH Sodium Chloride Carbon Dioxide Creatinine Glucose POC Glucose 399 H Hemoglobin A1c Lactic Acid CK-MB (CK-2) CK-MB (CK-2) Rel Index Troponin T Albumin Cholesterol LDL Cholesterol Direct Ur Specific [place] 11/14/18 11/14/18 11/14/18 03:39 03:39 03:39 Hgb Hct Lymph % (Auto) Lymph # Seg Neutrophils % Seg Neutrophils # PT INR APTT D-Dimer Heparin Anti-Xa Level VBG pH 7.304 L Sodium Chloride Carbon Dioxide Creatinine Glucose POC Glucose Hemoglobin A1c Lactic Acid 3.10 H* CK-MB (CK-2) 8.4 H CK-MB (CK-2) Rel Index 7.6 H Troponin T 0.217 H* Albumin Cholesterol 220 H LDL Cholesterol Direct 163 H Ur Specific [place] 11/14/18 11/14/18 11/14/18 03:39 04:04 05:15 Hgb Hct Lymph % (Auto) Lymph # Seg Neutrophils % Seg Neutrophils # PT INR APTT D-Dimer Heparin Anti-Xa Level VBG pH Sodium 133 L Chloride 91.8 L Carbon Dioxide Creatinine Glucose 461 H POC Glucose 321 H Hemoglobin A1c Lactic Acid CK-MB (CK-2) CK-MB (CK-2) Rel Index Troponin T Albumin 3.7 L Cholesterol LDL Cholesterol Direct Ur Specific [place] 1.032 H 11/14/18 11/14/18 11/14/18 05:51 08:08 12:32 Hgb Hct Lymph % (Auto) Lymph # Seg Neutrophils % Seg Neutrophils # PT INR APTT D-Dimer Heparin Anti-Xa Level VBG pH Sodium Chloride Carbon Dioxide Creatinine Glucose POC Glucose 281 H 302 H Hemoglobin A1c 13.3 H Lactic Acid CK-MB (CK-2) CK-MB (CK-2) Rel Index Troponin T Albumin Cholesterol LDL Cholesterol Direct Ur Specific [place] 11/14/18 11/14/18 11/14/18 13:04 17:38 17:59 Hgb Hct Lymph % (Auto) Lymph # Seg Neutrophils % Seg Neutrophils # PT INR APTT D-Dimer Heparin Anti-Xa Level VBG pH Sodium Chloride Carbon Dioxide Creatinine Glucose POC Glucose 313 H Hemoglobin A1c Lactic Acid CK-MB (CK-2) CK-MB (CK-2) Rel Index Troponin T 0.441 H* D 0.572 H* D Albumin Cholesterol LDL Cholesterol Direct Ur Specific [place] 11/14/18 11/14/18 11/15/18 19:48 21:15 00:44 Hgb Hct Lymph % (Auto) Lymph # Seg Neutrophils % Seg Neutrophils # PT 15.3 H INR 1.14 H APTT D-Dimer Heparin Anti-Xa Level VBG pH Sodium Chloride Carbon Dioxide Creatinine Glucose POC Glucose 406 H 313 H Hemoglobin A1c Lactic Acid CK-MB (CK-2) CK-MB (CK-2) Rel Index Troponin T Albumin Cholesterol LDL Cholesterol Direct Ur Specific [place] 11/15/18 11/15/18 11/15/18 03:01 03:01 05:56 Hgb Hct Lymph % (Auto) Lymph # Seg Neutrophils % Seg Neutrophils # PT INR APTT D-Dimer Heparin Anti-Xa Level 1.45 H VBG pH Sodium 135 L Chloride Carbon Dioxide Creatinine 0.6 L Glucose 249 H POC Glucose 218 H Hemoglobin A1c Lactic Acid CK-MB (CK-2) CK-MB (CK-2) Rel Index Troponin T Albumin Cholesterol LDL Cholesterol Direct Ur Specific [place] 11/15/18 11/15/18 11/15/18 09:40 12:07 16:11 Hgb Hct Lymph % (Auto) Lymph # Seg Neutrophils % Seg Neutrophils # PT INR APTT D-Dimer Heparin Anti-Xa Level VBG pH Sodium Chloride Carbon Dioxide Creatinine Glucose POC Glucose 216 H 211 H 107 H Hemoglobin A1c Lactic Acid CK-MB (CK-2) CK-MB (CK-2) Rel Index Troponin T Albumin Cholesterol LDL Cholesterol Direct Ur Specific [place] 11/15/18 11/15/18 11/15/18 16:56 17:47 21:44 Hgb Hct Lymph % (Auto) Lymph # Seg Neutrophils % Seg Neutrophils # PT INR APTT D-Dimer Heparin Anti-Xa Level 1.20 H VBG pH Sodium Chloride Carbon Dioxide Creatinine Glucose POC Glucose 197 H 226 H Hemoglobin A1c Lactic Acid CK-MB (CK-2) CK-MB (CK-2) Rel Index Troponin T Albumin Cholesterol LDL Cholesterol Direct Ur Specific [place] 11/16/18 04:53 Hgb Hct Lymph % (Auto) Lymph # Seg Neutrophils % Seg Neutrophils # PT INR APTT D-Dimer Heparin Anti-Xa Level VBG pH Sodium 136 L Chloride Carbon Dioxide 21 L Creatinine Glucose 355 H POC Glucose Hemoglobin A1c Lactic Acid CK-MB (CK-2) CK-MB (CK-2) Rel Index Troponin T 0.240 H* D Albumin Cholesterol LDL Cholesterol Direct Ur Specific [place]
--- NOTE | 2018-11-16 08:53 | Progress Note ---
Assessment and Plan in discuss with vascular in view of questionable cva and pfo hesistant for mechinical thrombectomy and pt is hemodynamically stable, hold off beta renata and hang/arb in view of bp in 110, in discuss with vascular, may transion to elquis 10mg bid in am. - Patient Problems (1) Acute combined systolic and diastolic ACC/AHA stage C congestive heart failure Current Visit: Yes Status: Acute (2) Acute pulmonary embolism Current Visit: Yes Status: Acute Qualifiers: Pulmonary embolism type: saddle Acute cor pulmonale presence: without acute cor pulmonale Qualified Code(s): I26.92 - Saddle embolus of pulmonary artery without acute cor pulmonale (3) NSTEMI (non-ST elevated myocardial infarction) Current Visit: Yes Status: Acute Plan to address problem: type 2 (4) Right sided weakness Current Visit: Yes Status: Acute (5) Stroke Current Visit: Yes Status: Acute (6) Diabetes Current Visit: Yes Status: Chronic Qualifiers: Diabetes mellitus type: type 1 Diabetes mellitus complication status: with circulatory complication Diabetes mellitus complication detail: with other circulatory complications Qualified Code(s): E10.59 - Type 1 diabetes mellitus with other circulatory complications (7) Dyslipidemia Current Visit: Yes Status: Chronic (8) S/P amputation Current Visit: Yes Status: Chronic (9) Morbid obesity with body mass index of 40.0-49.9 Current Visit: No Status: Chronic Subjective Date of service: 11/16/18 Principal diagnosis: PE; ? CVA; HHNK; elevated trop Interval history: pt is lying in bed no sob or numbness this am Objective Vital Signs Temp Pulse Pulse Resp BP Pulse Ox 11/16/18 04:53 98.3 F 11/16/18 04:00 98.3 F 85 86 16 124/77 98 11/16/18 03:01 82 11 L 124/78 97 11/16/18 02:00 76 11 L 96/60 98 11/16/18 01:00 78 13 115/80 98 11/16/18 00:00 98.1 F 80 80 12 110/72 98 11/15/18 23:00 83 12 127/76 98 11/15/18 22:00 79 17 118/67 97 11/15/18 21:01 70 10 L 107/53 99 11/15/18 20:30 98 F 11/15/18 20:13 100 11/15/18 20:00 98 F 73 72 11 L 120/79 99 11/15/18 19:00 85 16 115/75 100 11/15/18 18:00 87 10 L 113/67 99 11/15/18 17:27 78 11 L 100/66 11/15/18 17:00 79 12 100/66 99 11/15/18 16:00 97.9 F 73 89 14 119/76 97 11/15/18 15:00 63 11 L 109/68 98 11/15/18 14:00 66 10 L 106/75 100 11/15/18 13:00 63 10 L 90/53 94 11/15/18 12:01 69 11 L 111/74 98 11/15/18 12:00 97.6 F 101 H 18 99 11/15/18 11:00 71 13 111/74 11/15/18 10:36 69 94/66 11/15/18 10:00 67 15 94/66 96 11/15/18 09:01 70 11 L 103/61 99 - Physical Examination General: No Apparent Distress HEENT: Positive: PERRL, Normocephaly, Mucus Membranes Moist Neck: Positive: neck supple, trachea midline Cardiac: Positive: Reg Rate and Rhythm Lungs: Positive: clear to auscultation Neuro: Positive: Grossly Intact Abdomen: Positive: Soft. Negative: Tender Skin: Positive: Rash. Negative: Wound Musculoskeletal: No Pain Extremities: Present: Other (bka) - Labs and Meds CBC 11/16/18 Range/Units 04:53 WBC 7.0 (4.5-11.0) K/mm3 RBC 4.16 (3.65-5.03) M/mm3 Hgb 12.7 (10.1-14.3) gm/dl Hct 37.8 (30.3-42.9) % Plt Count 207 (140-440) K/mm3 Lymph # 1.8 (1.2-5.4) K/mm3 [place] # 0.5 (0.0-0.8) K/mm3 Eos # 0.1 (0.0-0.4) K/mm3 Baso # 0.0 (0.0-0.1) K/mm3 Comprehensive Metabolic Panel 11/16/18 Range/Units 04:53 Sodium 136 L (137-145) mmol/L Potassium 3.9 (3.6-5.0) mmol/L Chloride 102.0 (98-107) mmol/L Carbon Dioxide 21 L (22-30) mmol/L BUN 10 (7-17) mg/dL Creatinine 0.8 (0.7-1.2) mg/dL Glucose 355 H (65-100) mg/dL Calcium 8.7 (8.4-10.2) mg/dL - Imaging and Cardiology EKG: report reviewed, image reviewed Echo: report reviewed (ef 45% mild rv dsyfunction normal rvsp mild tr and no as or mr and pfo) - Telemetry EKG Rhythm: Sinus Rhythm - EKG Sinus rhythms and dysrhythmias: sinus rhythm Myocardial infarction: inferior [place] (old age inde, anterior [place] (old age or i
[2018-11-16 10:20] LABS: INR 1.05 (0.87-1.13); Partial Thromboplastin Time 31.1 Sec. (24.2-36.6)
[2018-11-16] MEDS: PEPCID PO SCH ×2 (10:38→21:18)
[2018-11-16] MEDS: HumuLIN R SUB-Q SCH ×3 (10:38→18:20)
[2018-11-16] MEDS: ASPIRIN PO SCH (10:38)
[2018-11-16] MEDS: HumaLOG SUB-Q SCH ×4 (10:39→22:24)
--- NOTE | 2018-11-16 13:05 | Progress Note ---
Assessment and Plan Acute PE - CTA chest showed saddle PE. -Patient is vitally stable, denies chest pain -Also MRI brain suggesting subacute CVA. placed on heparin drip. - Transferred the patient to [facility] for close monitoring. Vascular consulted for possible thrombolysis -but not recommended - plan to change to eliquis tomorrow if h/h stable Subacute versus chronic CVA - No acute stroke based on MRI finding and per neuro - Continue to manage strict glycemic control, aspirin and statin Hyperosmolar hyperglycemic nonketotic syndrome - continue insulin and adjust doses as needed - We will continue IV fluid hydration with normal saline - We will replace potassium and magnesium as needed Uncontrolled insulin-dependent diabetes mellitus type 2 - Counseled for compliance, A1c 13.3 - Monitor blood glucose and adjust insulin dose as needed NSTEMI type II - likely from acute PE - Continue aspirin and statin, trend troponin - Cardiology consulted, cont therapeutic lovenox Hyponatremia, likely due to hyperglycemia - Repeat BMP, continue IV fluid Hyperlipidemia, continue statin Morbid obesity, nutritional consult Peripheral artery disease s/P BLE amputations - Supportive care DVt Px, on lovenox Brief History: The patient is a 43-year-old female with a past medical history of PVD s/p BLE amputations, DM, morbid obesity, noncompliance with medications presented with complaints of weakness, nausea and vomiting. Patient reports feeling weak and tired, she had multiple episodes of nausea and vomiting, she also had right abdominal cramp and right-sided weakness and thus decided to seek medical attention. Following arrival, pt diagnosed with HHNK, elevated troponin. Place him on therapeutic dose of Lovenox. CTA chest showed saddle emboli, change AC to heparin drip. MRI showed subacute CVA and no acute stroke. Vascular, neurology, cardiology, pulmonary following Radiological data: Head CT no acute CVA. chest CTA saddle pulmonary emboli. Hospitalist Physical exam: GENERAL: well-developed morbidly obese lying on bed appeared to be in no discomfort. HEENT: Normocephalic. Atraumatic. No conjunctival congestion or icterus. Patient has moist mucous membranes. NECK: Supple. Trachea midline. CHEST/LUNGS: Clear to auscultated bilaterally, breathing nonlabored. No wheezes crackles or rhonchi. HEART/CARDIOVASCULAR: Regular in rate and rhythm. S1 and S2 positive. ABDOMEN: Abdomen is soft, nontender. Patient has normal bowel sounds. SKIN: There is no rash. Warm and dry. NEURO: No focal motor deficit. Follows command. MUSCULOSKELETAL: No joint effusion or tenderness. EXTRIMITY: No edema, no cyanosis or clubbing. PSYCH: Cooperative. Subjective Date of service: 11/16/18 Principal diagnosis: PE; ? CVA; HHNK; elevated trop Interval history: Patient seen and examined. Medical records and medication list reviewed. No acute event overnight noted by the RN. Patient denies any chest pain or difficulty breathing. Patient is tolerating clear liquid diet. Discussed plan of care at bedside with patient. Objective - Constitutional Vitals: Vital Signs - 12hr 11/16/18 11/16/18 11/16/18 02:00 03:01 04:00 Temperature 98.3 F Pulse Rate 76 82 85 Pulse Rate [ 86 From Monitor] Respiratory 11 L 11 L 16 Rate Blood Pressure 96/60 124/78 124/77 O2 Sat by Pulse 98 97 98 Oximetry 11/16/18 04:53 Temperature 98.3 F Pulse Rate Pulse Rate [ From Monitor] Respiratory Rate Blood Pressure O2 Sat by Pulse Oximetry - Labs CBC & Chem 7: 11/16/18 04:53 11/17/18 11:09 Labs: Abnormal lab results 11/15/18 11/15/18 11/15/18 Range/Units 16:11 16:56 17:47 Heparin Anti-Xa Level 1.20 H (0.3-0.7) U.I./ml Sodium (137-145) mmol/L Carbon Dioxide (22-30) mmol/L Glucose (65-100) mg/dL POC Glucose 107 H 197 H (70-105) Troponin T (0.00-0.029) ng/mL 11/15/18 11/16/18 11/16/18 Range/Units 21:44 04:53 08:41 Heparin Anti-Xa Level (0.3-0.7) U.I./ml Sodium 136 L (137-145) mmol/L Carbon Dioxide 21 L (22-30) mmol/L Glucose 355 H (65-100) mg/dL POC Glucose 226 H 340 H (70-105) Troponin T 0.240 H* D (0.00-0.029) ng/mL 11/16/18 11/16/18 Range/Units 09:26 12:09 Heparin Anti-Xa Level 0.10 L (0.3-0.7) U.I./ml Sodium (137-145) mmol/L Carbon Dioxide (22-30) mmol/L Glucose (65-100) mg/dL POC Glucose 347 H (70-105) Troponin T (0.00-0.029) ng/mL
--- NOTE | 2018-11-16 14:37 | Progress Note ---
Assessment and Plan - Patient Problems (1) Acute pulmonary embolism Current Visit: Yes Status: Acute Qualifiers: Pulmonary embolism type: saddle Acute cor pulmonale presence: without acute cor pulmonale Qualified Code(s): I26.92 - Saddle embolus of pulmonary artery without acute cor pulmonale Plan to address problem: transition to oral anticoagulation. not a good candidate for thrombolysis with neurological status uncertain. Does not have enough criteria to justify mechanical thrombectomy. do anticipate any elective surgery would be postponed for 3-6 months to allow for natural clot load reduction. May need prophylactic filter placement before such surgery. Subjective Date of service: 11/16/18 Principal diagnosis: PE; ? CVA; HHNK; elevated trop Interval history: minor right hand tingling, no real change. tolerating anticoagulation, no chest pain or shortness of breathe. Expressed concerns about potential postponement of planed elective barriatric surgery with Dr Caban. Objective - Exam Narrative Exam: resting with out distress, O2 sats ok. neuro exam normal for motor function - Constitutional Vitals: Vital Signs - 12hr 11/16/18 11/16/18 11/16/18 03:01 04:00 04:53 Temperature 98.3 F 98.3 F Pulse Rate 82 85 Pulse Rate [ 86 From Monitor] Respiratory 11 L 16 Rate Blood Pressure 124/78 124/77 O2 Sat by Pulse 97 98 Oximetry - Labs CBC & Chem 7: 11/16/18 04:53 11/16/18 04:53 Labs: Abnormal lab results 11/15/18 11/15/18 11/15/18 Range/Units 16:11 16:56 17:47 Heparin Anti-Xa Level 1.20 H (0.3-0.7) U.I./ml Sodium (137-145) mmol/L Carbon Dioxide (22-30) mmol/L Glucose (65-100) mg/dL POC Glucose 107 H 197 H (70-105) Troponin T (0.00-0.029) ng/mL 11/15/18 11/16/18 11/16/18 Range/Units 21:44 04:53 08:41 Heparin Anti-Xa Level (0.3-0.7) U.I./ml Sodium 136 L (137-145) mmol/L Carbon Dioxide 21 L (22-30) mmol/L Glucose 355 H (65-100) mg/dL POC Glucose 226 H 340 H (70-105) Troponin T 0.240 H* D (0.00-0.029) ng/mL 11/16/18 11/16/18 Range/Units 09:26 12:09 Heparin Anti-Xa Level 0.10 L (0.3-0.7) U.I./ml Sodium (137-145) mmol/L Carbon Dioxide (22-30) mmol/L Glucose (65-100) mg/dL POC Glucose 347 H (70-105) Troponin T (0.00-0.029) ng/mL Medications & Allergies - Medications Allergies/Adverse Reactions: Allergies No Known Drug Allergies Allergy (Verified 11/16/17 13:40) Unknown Home Medications: Home Medications Medication Instructions Recorded Confirmed Last Taken Type Insulin Aspart [NovoLOG 100 10 units SUB-Q TIDWM 10/07/14 11/14/18 09/02/18 History UNITS/ML VIAL] Insulin Glargine [Lantus VIAL] 30 units SUB-Q QHS 10/07/14 11/14/18 09/02/18 History Metformin HCl [metFORMIN] 1,000 mg PO BID 05/03/17 11/14/18 09/02/18 History Active Medications: Generic Name Dose Route Start Last Admin Trade Name Freq PRN Reason Stop Dose Admin Acetaminophen 650 mg 11/14/18 05:36 11/14/18 22:57 Tylenol PO 650 mg Q4H PRN Administration Pain MILD(1-3)/Fever >100.5/OHARA Aspirin 325 mg 11/15/18 10:00 11/16/18 10:38 Aspirin PO 325 mg QDAY NARCISA Administration Atorvastatin Calcium 40 mg 11/14/18 22:00 11/15/18 22:16 Lipitor PO 40 mg QHS NARCISA Administration Bisacodyl 10 mg 11/14/18 05:43 Dulcolax HI QDAY PRN Constipation Dextrose 50 ml 11/14/18 05:36 D50w (25gm) Syringe IV PRN PRN Hypoglycemia Famotidine 20 mg 11/15/18 10:00 11/16/18 10:38 Pepcid PO 20 mg BID NARCISA Administration Sodium Chloride 1,000 mls @ 125 mls/hr 11/14/18 08:00 Nacl 0.9% 1000 Ml IV DIRECT NARCISA Heparin Sodium/Sodium Chloride 25,000 unit in 500 mls @ 30 mls/hr 11/14/18 20:00 11/15/18 18:05 Heparin/ 0.45% Nacl-25,000 Unit/500 Ml IV 0 units/hr TITR NARCISA 0 mls/hr Titration Protocol 1,500 UNITS/HR Insulin Glargine 35 units 11/14/18 22:00 11/15/18 22:16 Lantus SUB-Q 35 units QHS [facility] Administration Insulin Human Lispro 0 unit 11/15/18 16:30 11/16/18 12:30 Humalog SUB-Q 8 unit ACHS [facility] Administration Protocol Insulin Human Regular 10 units 11/15/18 08:00 11/16/18 12:30 Humulin R SUB-Q 10 units AC [facility] Administration Magnesium Hydroxide 30 ml 11/14/18 05:43 Milk Of Magnesia PO Q4H PRN Constipation Metoclopramide HCl 10 mg 11/14/18 05:43 11/14/18 14:35 Reglan PO 10 mg Q6H PRN Administration Nausea And Vomiting Ondansetron HCl 4 mg 11/14/18 05:36 11/15/18 18:26 Zofran IV 4 mg Q8H PRN Administration Nausea And Vomiting Promethazine HCl 25 mg 11/14/18 05:43 Phenergan HI Q6H PRN Nausea And Vomiting Sodium Chloride 10 ml 11/14/18 05:43 Sodium Chloride Flush Syringe 10 Ml IV PRN PRN LINE FLUSH
[2018-11-16] MEDS ORDERED: MORPHINE IV PRN (19:44)
[2018-11-16] MEDS: TYLENOL PO PRN (21:18)
[2018-11-16] MEDS: SODIUM CHLORIDE FLUSH SYRINGE 10 ML IV PRN (21:19)
[2018-11-16] MEDS: LANTUS SUB-Q SCH (22:24)
[2018-11-16] MEDS: HEPARIN/ 0.45% NACL-25,000 UNIT/500 ML 25,000 UNIT/500 ML BAG IV SCH (22:25)
[2018-11-17] MEDS: HumuLIN R SUB-Q SCH ×2 (08:39→16:47)
[2018-11-17] MEDS: HumaLOG SUB-Q SCH ×4 (08:39→21:31)
[2018-11-17] MEDS: ASPIRIN PO SCH (10:14)
[2018-11-17] MEDS: ELIQUIS PO SCH ×2 (10:14→21:29)
[2018-11-17] MEDS: PEPCID PO SCH ×2 (10:15→21:30)
[2018-11-17] MEDS: SODIUM CHLORIDE FLUSH SYRINGE 10 ML IV PRN (10:15)
--- NOTE | 2018-11-17 10:51 | Progress Note ---
Assessment and Plan pt on eliquis 10mg bid for one week and then 5mg bid and trop trending down, out patient ischemia evalution once stable for mild lv dsyfunction, no beta blockers, hang or arb in view of low bp, may go to telemetry. - Patient Problems (1) Acute combined systolic and diastolic ACC/AHA stage C congestive heart fa ilure Current Visit: Yes Status: Acute (2) Acute pulmonary embolism Current Visit: Yes Status: Acute Qualifiers: Pulmonary embolism type: saddle Acute cor pulmonale presence: without acute cor pulmonale Qualified Code(s): I26.92 - Saddle embolus of pulmonary artery without acute cor pulmonale (3) NSTEMI (non-ST elevated myocardial infarction) Current Visit: Yes Status: Acute (4) Right sided weakness Current Visit: Yes Status: Acute (5) Stroke Current Visit: Yes Status: Acute (6) Diabetes Current Visit: Yes Status: Chronic Qualifiers: Diabetes mellitus type: type 1 Diabetes mellitus complication status: with circulatory complication Diabetes mellitus complication detail: with other circulatory complications Qualified Code(s): E10.59 - Type 1 diabetes mellitus with other circulatory complications (7) Dyslipidemia Current Visit: Yes Status: Chronic (8) S/P amputation Current Visit: Yes Status: Chronic (9) Morbid obesity with body mass index of 40.0-49.9 Current Visit: No Status: Chronic Subjective Date of service: 11/17/18 Principal diagnosis: PE; ? CVA; HHNK; elevated trop Interval history: lying in bed no chest pain or sob Objective Vital Signs Temp Pulse Pulse Resp BP Pulse Ox 11/17/18 06:00 73 11/17/18 04:00 97.7 F 11/17/18 03:40 78 14 98 11/17/18 03:00 73 13 102/73 99 11/17/18 02:00 67 11 L 102/73 100 11/17/18 01:00 75 12 102/73 100 11/17/18 00:00 98.1 F 70 69 11 L 102/73 100 11/16/18 23:00 76 13 102/73 100 11/16/18 22:00 70 12 104/70 100 11/16/18 21:00 83 13 104/70 11/16/18 20:00 98.4 F 77 77 15 104/70 98 06/15/19 19:49 83 14 104/70 94 11/16/18 19:00 77 14 122/50 99 11/16/18 18:00 77 11 L 122/49 11/16/18 17:00 81 12 122/49 95 11/16/18 16:00 98 F 88 14 122/49 98 11/16/18 15:01 77 13 122/49 96 11/16/18 14:01 82 14 118/57 99 11/16/18 14:00 80 11/16/18 13:01 78 10 L 133/78 99 11/16/18 12:00 98.8 F 89 13 122/90 99 11/16/18 11:00 88 12 135/76 99 - Physical Examination General: No Apparent Distress HEENT: Positive: PERRL, Normocephaly, Mucus Membranes Moist Neck: Positive: neck supple, trachea midline Cardiac: Positive: Reg Rate and Rhythm Lungs: Positive: clear to auscultation Neuro: Positive: Grossly Intact Abdomen: Positive: Soft. Negative: Tender Skin: Positive: Rash. Negative: Wound Musculoskeletal: No Pain Extremities: Present: Other (bka) - Imaging and Cardiology EKG: report reviewed, image reviewed Echo: report reviewed (ef 45% mild rv dsyfunction normal rvsp mild tr and no as or mr and pfo) - Telemetry EKG Rhythm: Sinus Rhythm - EKG Sinus rhythms and dysrhythmias: sinus rhythm Myocardial infarction: inferior [place] (old age inde, anterior [place] (old age or i
[2018-11-17 12:22] LABS: BUN/Creatinine Ratio 15; Blood Urea Nitrogen 9 mg/dL (7-17); Calcium 8.7 mg/dL (8.4-10.2); Hemolysis Index 3
--- NOTE | 2018-11-17 14:38 | Progress Note ---
Assessment and Plan Acute PE - CTA chest showed saddle PE. -Patient is vitally stable, denies chest pain -Also MRI brain suggesting subacute CVA. placed on heparin drip. - Transferred the patient to [facility] for close monitoring. Vascular consulted for possible thrombolysis -but not recommended - change to eliquis today and monitor h/h and neuro function Subacute versus chronic CVA - No acute stroke based on MRI finding and per neuro - Continue to manage strict glycemic control, aspirin and statin Hyperosmolar hyperglycemic nonketotic syndrome - continue insulin and adjust doses as needed - We will continue IV fluid hydration with normal saline - We will replace potassium and magnesium as needed Uncontrolled insulin-dependent diabetes mellitus type 2 - Counseled for compliance, A1c 13.3 - Monitor blood glucose and adjust insulin dose as needed NSTEMI type II - likely from acute PE - Continue aspirin and statin, trend troponin - Cardiology consulted, cont therapeutic lovenox Hyponatremia, likely due to hyperglycemia - Repeat BMP, continue IV fluid Hyperlipidemia, continue statin Morbid obesity, nutritional consult Peripheral artery disease s/P BLE amputations - Supportive care DVt Px, on lovenox Brief History: The patient is a 43-year-old female with a past medical history of PVD s/p BLE amputations, DM, morbid obesity, noncompliance with medications presented with complaints of weakness, nausea and vomiting. Patient reports feeling weak and tired, she had multiple episodes of nausea and vomiting, she also had right abdominal cramp and right-sided weakness and thus decided to seek medical attent ion. Following arrival, pt diagnosed with HHNK, elevated troponin. Place him on therapeutic dose of Lovenox. CTA chest showed saddle emboli, change AC to heparin drip. MRI showed subacute CVA and no acute stroke. Vascular, neurology, cardiology, pulmonary following Radiological data: Head CT no acute CVA. chest CTA saddle pulmonary emboli. Hospitalist Physical exam: GENERAL: well-developed morbidly obese lying on bed appeared to be in no discomfort. HEENT: Normocephalic. Atraumatic. No conjunctival congestion or icterus. Patient has moist mucous membranes. NECK: Supple. Trachea midline. CHEST/LUNGS: Clear to auscultated bilaterally, breathing nonlabored. No wheezes crackles or rhonchi. HEART/CARDIOVASCULAR: Regular in rate and rhythm. S1 and S2 positive. ABDOMEN: Abdomen is soft, nontender. Patient has normal bowel sounds. SKIN: There is no rash. Warm and dry. NEURO: No focal motor deficit. Follows command. MUSCULOSKELETAL: No joint effusion or tenderness. EXTRIMITY: No edema, no cyanosis or clubbing. PSYCH: Cooperative. Subjective Date of service: 11/17/18 Principal diagnosis: PE; ? CVA; HHNK; elevated trop Interval history: Patient seen and examined. Medical records and medication list reviewed. No acute event overnight noted by the RN. Patient denies any chest pain or difficulty breathing. Patient is tolerating clear liquid diet. Discussed plan of care at bedside with patient. Objective - Constitutional Vitals: Vital Signs - 12hr 11/17/18 11/17/18 11/17/18 03:00 03:40 04:00 Temperature 97.7 F Pulse Rate 73 Pulse Rate [ 78 From Monitor] Respiratory 13 14 Rate Blood Pressure 102/73 O2 Sat by Pulse 99 98 Oximetry 11/17/18 06:00 Temperature Pulse Rate 73 Pulse Rate [ From Monitor] Respiratory Rate Blood Pressure O2 Sat by Pulse Oximetry - Labs CBC & Chem 7: 11/18/18 04:09 11/18/18 04:09 Labs: Abnormal lab results 11/16/18 11/16/18 11/17/18 Range/Units 16:16 22:02 08:37 Creatinine (0.7-1.2) mg/dL Glucose (65-100) mg/dL POC Glucose 193 H 231 H 222 H (70-105) 11/17/18 11/17/18 Range/Units 11:09 11:40 Creatinine 0.6 L (0.7-1.2) mg/dL Glucose 240 H (65-100) mg/dL POC Glucose 257 H (70-105)
--- NOTE | 2018-11-17 16:49 | Progress Note ---
Assessment and Plan Patient awake. Denies chest pain, shortness of breath or cough. Patient presently on room air .O2 saturation 99%. - Patient Problems (1) Acute pulmonary embolism Current Visit: Yes Status: Acute Qualifiers: Pulmonary embolism type: saddle Acute cor pulmonale presence: without acute cor pulmonale Qualified Code(s): I26.92 - Saddle embolus of pulmonary artery without acute cor pulmonale Plan to address problem: Patient is on APIXABAN. (2) Acute combined systolic and diastolic ACC/AHA stage C congestive heart failure Current Visit: Yes Status: Acute Plan to address problem: Management as per primary care and cardiology. (3) HHNC (hyperglycemic hyperosmolar nonketotic coma) Current Visit: Yes Status: Acute Plan to address problem: Management as per primary care. (4) NSTEMI (non-ST elevated myocardial infarction) Current Visit: Yes Status: Acute Plan to address problem: Management as per cardiology. (5) Stroke Current Visit: Yes Status: Acute Plan to address problem: Management as per neurology. (6) Diabetes Current Visit: Yes Status: Chronic Qualifiers: Diabetes mellitus type: type 1 Diabetes mellitus complication status: with circulatory complication Diabetes mellitus complication detail: with other circulatory complications Qualified Code(s): E10.59 - Type 1 diabetes mellitus with other circulatory complications Plan to address problem: Management as per primary care. (7) Obesity Current Visit: Yes Status: Chronic Plan to address problem: Recommend to loose weight. Diet and exercise. (8) S/P amputation Current Visit: Yes Status: Chronic Plan to address problem: Peripheral artery disease s/P BLE amputations - Supportive care (9) Morbid obesity with body mass index of 40.0-49.9 Current Visit: No Status: Chronic Plan to address problem: Possible sleep apnea. Sleep study as out patient. Subjective Date of service: 11/17/18 Principal diagnosis: PE; ? CVA; HHNK; elevated trop Interval history: Patient awake. Denies chest pain, shortness of breath or cough. Patient presently on room air .O2 saturation 99%. Objective Vital Signs - 12hr 11/17/18 11/17/18 11/17/18 05:00 06:00 07:00 Temperature Pulse Rate 68 66 66 Pulse Rate [ From Monitor] Respiratory 11 L 10 L 11 L Rate Blood Pressure 110/68 110/68 110/68 O2 Sat by Pulse 100 100 99 Oximetry 06/16/19 06/16/19 06/16/19 08:00 09:00 10:00 Temperature 97.8 F Pulse Rate 64 73 74 Pulse Rate [ 74 From Monitor] Respiratory 10 L 14 11 L Rate Blood Pressure 98/59 98/59 98/59 O2 Sat by Pulse 100 96 100 Oximetry 11/17/18 11/17/18 11/17/18 11:00 12:00 13:00 Temperature 98.0 F Pulse Rate 67 69 66 Pulse Rate [ 72 From Monitor] Respiratory 10 L 10 L 10 L Rate Blood Pressure 126/79 114/71 113/71 O2 Sat by Pulse 100 100 100 Oximetry 11/17/18 11/17/18 14:00 16:00 Temperature 98.3 F Pulse Rate 77 Pulse Rate [ From Monitor] Respiratory 15 Rate Blood Pressure 124/83 O2 Sat by Pulse 99 Oximetry Constitutional: no acute distress, alert, other (Morbidley Obese.) Eyes: non-icteric ENT: oropharynx moist Neck: supple, no lymphadenopathy Ascultation: Bilateral: diminished breath sounds Cardiovascular: regular rate and rhythm Gastrointestinal: normoactive bowel sounds, soft, non-tender, other (Obese.) Integumentary: normal Extremities: no cyanosis, no edema Neurologic: normal mental status, non-focal exam, pupils equal and round, CN II- XII normal Psychiatric: mood appropriate CBC and BMP: 11/16/18 04:53 11/17/18 11:09 ABG, PT/INR, D-dimer: PT/INR, D-dimer PT 13.4 Sec. (12.2-14.9) 11/16/18 09:26 INR 1.05 (0.87-1.13) 11/16/18 09:26 5514.54 ng/mlDDU (0-234) H 11/14/18 03:39 Abnormal lab findings: Abnormal Labs 11/14/18 11/14/18 11/14/18 02:56 03:39 03:39 Hgb 14.9 H Hct 44.8 H Lymph % (Auto) 10.0 L Lymph # 1.0 L Seg Neutrophils % 84.6 H Seg Neutrophils # 8.3 H PT INR APTT 23.8 L D-Dimer 5514.54 H Heparin Anti-Xa Level VBG pH Sodium Chloride Carbon Dioxide Creatinine Glucose POC Glucose 399 H Hemoglobin A1c Lactic Acid CK-MB (CK-2) CK-MB (CK-2) Rel Index Troponin T Albumin Cholesterol LDL Cholesterol Direct Ur Specific [place] 11/14/18 11/14/18 11/14/18 03:39 03:39 03:39 Hgb Hct Lymph % (Auto) Lymph # Seg Neutrophils % Seg Neutrophils # PT INR APTT D-Dimer Heparin Anti-Xa Level VBG pH 7.304 L Sodium Chloride Carbon Dioxide Creatinine Glucose POC Glucose Hemoglobin A1c Lactic Acid 3.10 H* CK-MB (CK-2) 8.4 H CK-MB (CK-2) Rel Index 7.6 H Troponin T 0.217 H* Albumin Cholesterol 220 H LDL Cholesterol Direct 163 H Ur Specific [place] 11/14/18 11/14/18 11/14/18 03:39 04:04 05:15 Hgb Hct Lymph % (Auto) Lymph # Seg Neutrophils % Seg Neutrophils # PT INR APTT D-Dimer Heparin Anti-Xa Level VBG pH Sodium 133 L Chloride 91.8 L Carbon Dioxide Creatinine Glucose 461 H POC Glucose 321 H Hemoglobin A1c Lactic Acid CK-MB (CK-2) CK-MB (CK-2) Rel Index Troponin T Albumin 3.7 L Cholesterol LDL Cholesterol Direct Ur Specific [place] 1.032 H 11/14/18 11/14/18 11/14/18 05:51 08:08 12:32 Hgb Hct Lymph % (Auto) Lymph # Seg Neutrophils % Seg Neutrophils # PT INR APTT D-Dimer Heparin Anti-Xa Level VBG pH Sodium Chloride Carbon Dioxide Creatinine Glucose POC Glucose 281 H 302 H Hemoglobin A1c 13.3 H Lactic Acid CK-MB (CK-2) CK-MB (CK-2) Rel Index Troponin T Albumin Cholesterol LDL Cholesterol Direct Ur Specific [place] 11/14/18 11/14/18 11/14/18 13:04 17:38 17:59 Hgb Hct Lymph % (Auto) Lymph # Seg Neutrophils % Seg Neutrophils # PT INR APTT D-Dimer Heparin Anti-Xa Level VBG pH Sodium Chloride Carbon Dioxide Creatinine Glucose POC Glucose 313 H Hemoglobin A1c Lactic Acid CK-MB (CK-2) CK-MB (CK-2) Rel Index Troponin T 0.441 H* D 0.572 H* D Albumin Cholesterol LDL Cholesterol Direct Ur Specific [place] 11/14/18 11/14/18 11/15/18 19:48 21:15 00:44 Hgb Hct Lymph % (Auto) Lymph # Seg Neutrophils % Seg Neutrophils # PT 15.3 H INR 1.14 H APTT D-Dimer Heparin Anti-Xa Level VBG pH Sodium Chloride Carbon Dioxide Creatinine Glucose POC Glucose 406 H 313 H Hemoglobin A1c Lactic Acid CK-MB (CK-2) CK-MB (CK-2) Rel Index Troponin T Albumin Cholesterol LDL Cholesterol Direct Ur Specific [place] 11/15/18 11/15/18 11/15/18 03:01 03:01 05:56 Hgb Hct Lymph % (Auto) Lymph # Seg Neutrophils % Seg Neutrophils # PT INR APTT D-Dimer Heparin Anti-Xa Level 1.45 H VBG pH Sodium 135 L Chloride Carbon Dioxide Creatinine 0.6 L Glucose 249 H POC Glucose 218 H Hemoglobin A1c Lactic Acid CK-MB (CK-2) CK-MB (CK-2) Rel Index Troponin T Albumin Cholesterol LDL Cholesterol Direct Ur Specific [place] 11/15/18 11/15/18 11/15/18 09:40 12:07 16:11 Hgb Hct Lymph % (Auto) Lymph # Seg Neutrophils % Seg Neutrophils # PT INR APTT D-Dimer Heparin Anti-Xa Level VBG pH Sodium Chloride Carbon Dioxide Creatinine Glucose POC Glucose 216 H 211 H 107 H Hemoglobin A1c Lactic Acid CK-MB (CK-2) CK-MB (CK-2) Rel Index Troponin T Albumin Cholesterol LDL Cholesterol Direct Ur Specific [place] 11/15/18 11/15/18 11/15/18 16:56 17:47 21:44 Hgb Hct Lymph % (Auto) Lymph # Seg Neutrophils % Seg Neutrophils # PT INR APTT D-Dimer Heparin Anti-Xa Level 1.20 H VBG pH Sodium Chloride Carbon Dioxide Creatinine Glucose POC Glucose 197 H 226 H Hemoglobin A1c Lactic Acid CK-MB (CK-2) CK-MB (CK-2) Rel Index Troponin T Albumin Cholesterol LDL Cholesterol Direct Ur Specific [place] 11/16/18 11/16/18 11/16/18 04:53 08:41 09:26 Hgb Hct Lymph % (Auto) Lymph # Seg Neutrophils % Seg Neutrophils # PT INR APTT D-Dimer Heparin Anti-Xa Level 0.10 L VBG pH Sodium 136 L Chloride Carbon Dioxide 21 L Creatinine Glucose 355 H POC Glucose 340 H Hemoglobin A1c Lactic Acid CK-MB (CK-2) CK-MB (CK-2) Rel Index Troponin T 0.240 H* D Albumin Cholesterol LDL Cholesterol Direct Ur Specific [place] 11/16/18 11/16/18 11/16/18 12:09 16:16 22:02 Hgb Hct Lymph % (Auto) Lymph # Seg Neutrophils % Seg Neutrophils # PT INR APTT D-Dimer Heparin Anti-Xa Level VBG pH Sodium Chloride Carbon Dioxide Creatinine Glucose POC Glucose 347 H 193 H 231 H Hemoglobin A1c Lactic Acid CK-MB (CK-2) CK-MB (CK-2) Rel Index Troponin T Albumin Cholesterol LDL Cholesterol Direct Ur Specific [place] 11/17/18 11/17/18 11/17/18 08:37 11:09 11:40 Hgb Hct Lymph % (Auto) Lymph # Seg Neutrophils % Seg Neutrophils # PT INR APTT D-Dimer Heparin Anti-Xa Level VBG pH Sodium Chloride Carbon Dioxide Creatinine 0.6 L Glucose 240 H POC Glucose 222 H 257 H Hemoglobin A1c Lactic Acid CK-MB (CK-2) CK-MB (CK-2) Rel Index Troponin T Albumin Cholesterol LDL Cholesterol Direct Ur Specific [place] 11/17/18 16:28 Hgb Hct Lymph % (Auto) Lymph # Seg Neutrophils % Seg Neutrophils # PT INR APTT D-Dimer Heparin Anti-Xa Level VBG pH Sodium Chloride Carbon Dioxide Creatinine Glucose POC Glucose 202 H Hemoglobin A1c Lactic Acid CK-MB (CK-2) CK-MB (CK-2) Rel Index Troponin T Albumin Cholesterol LDL Cholesterol Direct Ur Specific [place] Chest x-ray: report reviewed (No acute pulmonary process identified.), image reviewed CT scan - chest: report reviewed, image reviewed Prior PFT's, U/S of legs: report reviewed, image reviewed Additional Studies: Angio CT of chest done on 11/14/18 IMPRESSION: Large saddle embolus present. There also large pulmonary emboli visualized in the left lower lobe pulmonary artery extending into peripheral branches.. Moderate-sized pulmonary emboli visualized in the proximal end of the right lower lobe also extending into the lingula and smaller emboli seen extending into the left upper lobe pulmonary artery. Cholelithiasis is suspected as described. This could be confirmed with ultrasound if clinically indicated. No other abnormalities are seen. Critical value: I discussed these findings in detail with Sarah Kimbrough by phone conversation on 11/14/2018 at 5:37 PM Eastern standard time. Venous doppler studies of legs done on 6/14/19 PROCEDURE: VL VENOUS DUPLEX LE BILAT TECHNIQUE: Ultrasound deep venous system bilateral lower extremities with pulsed and color Doppler evaluation HISTORY: PE COMPARISONS: FINDINGS: There is normal vascular flow waveform within the deep venous system of the lower extremities from the common femoral through the visualized proximal calf veins. Normal sonographic appearance and compressibility IMPRESSION: No evidence for deep venous thrombosis. This document is electronically signed by Christiano Katz MD., November 15 2018 05:31:34 PM ET Transcribed By: ZAIRE Dictated By: JAMEY KATZ MD Electronically Authenticated By: JAMEY KATZ MD Signed Date/Time: 11/15/18 1733 DD/ 1616 TD/TT: 11/15/18 1617
[2018-11-17] MEDS ORDERED: LANTUS SUB-Q SCH (22:00)
[2018-11-18 04:42] LABS: Hematocrit 34.8 % (30.3-42.9); Hemoglobin 11.6 gm/dl (10.1-14.3)
[2018-11-18 05:04] LABS: BUN/Creatinine Ratio 15; Blood Urea Nitrogen 9 mg/dL (7-17); Calcium 8.4 mg/dL (8.4-10.2); Hemolysis Index 47
[2018-11-18] MEDS ORDERED: BABY ASPIRIN PO SCH (10:00)
[2018-11-18] MEDS: ELIQUIS PO SCH (10:14)
[2018-11-18] MEDS: HumaLOG SUB-Q SCH ×3 (10:15→18:03)
[2018-11-18] MEDS: PEPCID PO SCH (10:15)
[2018-11-18] MEDS: HumuLIN R SUB-Q SCH ×3 (10:21→18:03)
--- NOTE | 2018-11-18 12:59 | Progress Note ---
Assessment and Plan Currently stable cardiac status. Pt may discharge from cardiology standpoint. Can consider addition of BB and/or ACEI/ARB if BPs permit and can also consider ischemic eval as OP in setting of mild LV dysfunction. Pt noted to have PFO, will plan to readdress as OP once medically stabilized. Follow up in our [place] office with Dr. Carnes on 11/26/2018 @ 1:45PM. The patient has been seen in conjunction with Dr. Aileen Conner who agrees with the assessment and plan of care. - Patient Problems (1) Acute pulmonary embolism Current Visit: Yes Status: Acute Qualifiers: Pulmonary embolism type: saddle Acute cor pulmonale presence: without acute cor pulmonale Qualified Code(s): I26.92 - Saddle embolus of pulmonary artery without acute cor pulmonale (2) CVA (cerebral vascular accident) Current Visit: Yes Status: Suspected (3) HHNC (hyperglycemic hyperosmolar nonketotic coma) Current Visit: Yes Status: Acute (4) Diabetes Current Visit: Yes Status: Chronic Qualifiers: Diabetes mellitus type: type 1 Diabetes mellitus complication status: with circulatory complication Diabetes mellitus complication detail: with other circulatory complications Qualified Code(s): E10.59 - Type 1 diabetes mellitus with other circulatory complications (5) Noncompliance with diabetes treatment Current Visit: Yes Status: Chronic (6) Nausea and vomiting Current Visit: Yes Status: Acute (7) Right sided weakness Current Visit: Yes Status: Acute (8) Obesity Current Visit: Yes Status: Chronic (9) S/P amputation Current Visit: Yes Status: Chronic (10) NSTEMI (non-ST elevated myocardial infarction) Current Visit: Yes Status: Acute Plan to address problem: type II (11) Dyslipidemia Current Visit: Yes Status: Chronic (12) PFO (patent foramen ovale) Current Visit: Yes Status: Chronic Subjective Date of service: 11/18/18 Principal diagnosis: PE; CVA; HHNK; elevated trop Interval history: pt resting comfortably in bed, no apparent distress, no complaints, A&O. Objective Last Vital Signs Temp 98.6 F 11/18/18 12:30 Pulse 79 11/18/18 12:30 Resp 20 11/18/18 12:30 BP 104/66 11/18/18 12:30 Pulse Ox 94 11/18/18 12:30 - Physical Examination General: No Apparent Distress HEENT: Positive: PERRL, Normocephaly, Mucus Membranes Moist Neck: Positive: neck supple, trachea midline Cardiac: Positive: Reg Rate and Rhythm, S1/S2 Lungs: Positive: Decreased Breath Sounds Neuro: Positive: Grossly Intact Abdomen: Positive: Soft. Negative: Tender Skin: Positive: Rash. Negative: Wound Musculoskeletal: No Pain Extremities: Present: Other (bka) - Labs and Meds CBC 11/18/18 Range/Units 04:09 Hgb 11.6 (10.1-14.3) gm/dl Hct 34.8 (30.3-42.9) % Plt Count 195 (140-440) K/mm3 Comprehensive Metabolic Panel 11/18/18 Range/Units 04:09 Sodium 138 (137-145) mmol/L Potassium 4.1 (3.6-5.0) mmol/L Chloride 103.8 (98-107) mmol/L Carbon Dioxide 23 (22-30) mmol/L BUN 9 (7-17) mg/dL Creatinine 0.6 L (0.7-1.2) mg/dL Glucose 197 H (65-100) mg/dL Calcium 8.4 (8.4-10.2) mg/dL - Imaging and Cardiology EKG: report reviewed, image reviewed Echo: report reviewed (ef 45% mild rv dsyfunction normal rvsp mild tr and no as or mr and pfo) - EKG Sinus rhythms and dysrhythmias: sinus rhythm Myocardial infarction: inferior ID (old age inde, anterior ID (old age or i
--- NOTE | 2018-11-18 14:28 | Discharge Summary ---
Providers - Providers Date of Admission: 11/14/18 04:57 Date of discharge: 11/18/18 Attending physician: NARINDER OCONNOR 11/14/18 02:45 Consult to Physician [CONS] Urgent Comment: spoke with Joanne about consult at 1159 Consulting Provider: SATISH LAZO Physician Instructions: Reason For Exam: cva 11/14/18 05:36 Consult to Dietitian/Nutrition [CONS] Routine Physician Instructions: Reason For Exam: Reason for Consult: Diet education 11/14/18 05:43 Consult to Case Management [CONS] Routine Services Needed at Discharge: Occupational Therapy Physical Therapy Notified:: renal case manager Consult to Dietitian/Nutrition [CONS] Routine Physician Instructions: Reason For Exam: Reason for Consult: Nutrition Recommendations Reason for Consult: Diet education Occupational Therapy Evaluate and Treat [CONS] Routine Comment: Reason For Exam: Neuro deficits Physical Therapy Evaluation and Treat [CONS] Routine Comment: Reason For Exam: Neuro deficits 11/14/18 07:20 Consult to Physician [CONS] Routine Comment: Consulting Provider: [facility] Physician Instructions: Reason For Exam: elevated troponin (uncontrol DM, morbid obesity) 11/14/18 19:10 Consult to Physician [CONS] Routine Comment: Consulting Provider: ASHLEY FLETCHER Physician Instructions: Reason For Exam: saddle PE 11/14/18 19:12 Consult to Physician [CONS] Routine Comment: Consulting Provider: SHAYNA KERN Physician Instructions: Reason For Exam: saddle PE [facility] Condition: Fair Hospital course: Brief History: The patient is a 43-year-old female with a past medical history of PVD s/p BLE amputations, DM, morbid obesity, noncompliance with medications presented with complaints of weakness, nausea and vomiting. Patient reported feeling weak and tired, she had multiple episodes of nausea and vomiting, she also had right abdominal cramp and right-sided weakness and thus decided to seek medical attention. Following arrival, patient diagnosed with HHNK with Bg 461, elevated troponin. Placed him on therapeutic dose of Lovenox. CTA chest showed saddle emboli, change AC to heparin drip. MRI showed subacute CVA and no acute stroke. Vascular, neurology, cardiology, pulmonary was following. Insulin dosage was adjusted for better glycemic control, he was monitored clinically, assist with frequent neuro exam, insulin drip then changed to eliquis. Patient was clinically optimized and then discharged home in stable condition with further outpatient follow-up. Radiological data: Head CT no acute CVA. chest CTA saddle pulmonary emboli. Brain MRI/MRA Lower extremity doppler 2d echo Discharge diagnosis and management: Acute PE - CTA chest showed saddle PE. -Also MRI brain suggesting subacute CVA. placed on heparin drip. - Transferred the patient to [facility] for close monitoring. Vascular consulted for possible thrombolysis -but not recommended - change to eliquis before discharge Subacute versus chronic CVA - No acute stroke based on MRI finding and per neuro - Continue to manage strict glycemic control, aspirin and statin Hyperosmolar hyperglycemic nonketotic syndrome -Placed on IV fluid, insulin and adjusted insulin doses as needed -Monitored potassium and magnesium and replete it as needed Uncontrolled insulin-dependent diabetes mellitus type 2 - Counseled for compliance, A1c 13.3 - Monitored blood glucose and adjusted insulin dose NSTEMI type II - likely from acute PE - Continue aspirin and statin, trend troponin - Cardiology consulted, recommended medical management Acute combined systolic and diastolic ACC/AHA stage C congestive heart failure, POA - cont current meds, further f/u outpt - 2d echo showed EF 40-45% - Follow up in [place] office with Dr. Carnes on 11/26/2018 @ 1:45PM. Hyponatremia, likely due to hyperglycemia -Resolved with IV fluid Hyperlipidemia, continue statin Morbid obesity, nutritional consulted Peripheral artery disease s/P BLE amputations - Provided Supportive care Hospitalist Physical exam: GENERAL: well-developed morbidly obese lying on bed appeared to be in no discomfort. HEENT: Normocephalic. Atraumatic. No conjunctival congestion or icterus. Patient has moist mucous membranes. NECK: Supple. Trachea midline. CHEST/LUNGS: Clear to auscultated bilaterally, breathing nonlabored. No wheezes crackles or rhonchi. HEART/CARDIOVASCULAR: Regular in rate and rhythm. S1 and S2 positive. ABDOMEN: Abdomen is soft, nontender. Patient has normal bowel sounds. SKIN: There is no rash. Warm and dry. NEURO: No focal motor deficit. Follows command. MUSCULOSKELETAL: No joint effusion or tenderness. EXTRIMITY: No edema, no cyanosis or clubbing. PSYCH: Cooperative. Disposition: [id number] HOME UND[facility] Time spent for discharge: 34 minutes Core Measure Documentation - Palliative Care Palliative Care/ Comfort Measures: Not Applicable - Core Measures Any of the following diagnoses?: history only Exam - Constitutional Vitals: Temp Pulse Resp BP Pulse Ox 98.6 F 79 20 104/66 94 11/18/18 12:30 11/18/18 12:30 11/18/18 12:30 11/18/18 12:30 11/18/18 12:30 Plan Activity: up only with assistance, fall precautions Weight Bearing Status: Non-Weight Bearing Diet: low fat, diabetic Special Instructions: record blood sugar diary Follow up with: MILLER CARNES MD [Staff Physician] - 7 Days (Follow up in our [place] office with Dr. Carnes on 11/26/2018 @ 1:45PM. ) [facility] ELYSSA [Primary Care Provider] - 3-5 Days Prescriptions: Insulin Glargine [Lantus VIAL] 30 units SUB-Q QHS #10 ml AtorvaSTATin [Lipitor] 40 mg PO QHS #30 tablet Aspirin [Aspirin BABY CHEW TAB] 81 mg PO QDAY #30 tab.chew Apixaban [Eliquis] 5 mg PO Q12HR #60 tablet Apixaban [Eliquis] 10 mg PO Q12HR #12 tablet Insulin Aspart [NovoLOG 100 UNITS/ML VIAL] 10 units SUB-Q TIDWM #10 ml Metoclopramide [Reglan TAB] 10 mg PO Q6H PRN #30 tablet PRN Reason: Nausea And Vomiting
[2018-11-18 16:35] VITALS: BP 115/69
--- NOTE | 2018-11-18 17:35 | Progress Note ---
Assessment and Plan Patient resting on 2L O2. O2 Sat 99%. No complain of chest pain, shortness of breath or cough. - Patient Problems (1) Acute pulmonary embolism Current Visit: Yes Status: Acute Qualifiers: Pulmonary embolism type: saddle Acute cor pulmonale presence: without acute cor pulmonale Qualified Code(s): I26.92 - Saddle embolus of pulmonary artery without acute cor pulmonale Plan to address problem: Patient is on APIXABAN. (2) Acute combined systolic and diastolic ACC/AHA stage C congestive heart failure Current Visit: Yes Status: Acute Plan to address problem: Management as per primary care and cardiology. (3) HHNC (hyperglycemic hyperosmolar nonketotic coma) Current Visit: Yes Status: Acute Plan to address problem: Management as per primary care. (4) NSTEMI (non-ST elevated myocardial infarction) Current Visit: Yes Status: Acute Plan to address problem: Management as per cardiology. (5) Stroke Current Visit: Yes Status: Acute Plan to address problem: Management as per neurology. (6) Diabetes Current Visit: Yes Status: Chronic Qualifiers: Diabetes mellitus type: type 1 Diabetes mellitus complication status: with circulatory complication Diabetes mellitus complication detail: with other circulatory complications Qualified Code(s): E10.59 - Type 1 diabetes mellitus with other circulatory complications Plan to address problem: Management as per primary care. (7) Obesity Current Visit: Yes Status: Chronic Plan to address problem: Recommend to loose weight. Diet and exercise. (8) S/P amputation Current Visit: Yes Status: Chronic Plan to address problem: Peripheral artery disease s/P BLE amputations - Supportive care (9) Morbid obesity with body mass index of 40.0-49.9 Current Visit: No Status: Chronic Plan to address problem: Possible sleep apnea. Sleep study as out patient. Subjective Date of service: 11/18/18 Principal diagnosis: PE; CVA; HHNK; elevated trop Interval history: Patient resting on 2L O2. O2 Sat 99%. No complain of chest pain, shortness of breath or cough. Objective Vital Signs - 12hr 11/18/18 11/18/18 11/18/18 06:00 07:32 12:30 Temperature 98.6 F 98.6 F Pulse Rate 74 69 79 Respiratory 20 20 Rate Blood Pressure 124/74 104/66 O2 Sat by Pulse 98 94 Oximetry 11/18/18 11/18/18 11/18/18 14:00 14:57 16:33 Temperature 98.6 F Pulse Rate 67 77 Respiratory 20 Rate Blood Pressure 115/69 O2 Sat by Pulse 100 99 Oximetry Constitutional: no acute distress, alert, other (Morbidley Obese.) Eyes: non-icteric ENT: oropharynx moist Neck: supple, no lymphadenopathy Ascultation: Bilateral: diminished breath sounds Cardiovascular: regular rate and rhythm Gastrointestinal: normoactive bowel sounds, soft, non-tender, other (Obese.) Integumentary: normal Extremities: no cyanosis, no edema, other (bilateral BKA) Neurologic: normal mental status, non-focal exam, pupils equal and round, CN II- XII normal Psychiatric: mood appropriate CBC and BMP: 11/18/18 04:09 11/18/18 04:09 ABG, PT/INR, D-dimer: PT/INR, D-dimer PT 13.4 Sec. (12.2-14.9) 11/16/18 09:26 INR 1.05 (0.87-1.13) 11/16/18 09:26 5514.54 ng/mlDDU (0-234) H 11/14/18 03:39 Abnormal lab findings: Abnormal Labs 11/14/18 11/14/18 11/14/18 02:56 03:39 03:39 Hgb 14.9 H Hct 44.8 H Lymph % (Auto) 10.0 L Lymph # 1.0 L Seg Neutrophils % 84.6 H Seg Neutrophils # 8.3 H PT INR APTT 23.8 L D-Dimer 5514.54 H Heparin Anti-Xa Level VBG pH Sodium Chloride Carbon Dioxide Creatinine Glucose POC Glucose 399 H Hemoglobin A1c Lactic Acid CK-MB (CK-2) CK-MB (CK-2) Rel Index Troponin T Albumin Cholesterol LDL Cholesterol Direct Ur Specific [place] 11/14/18 11/14/18 11/14/18 03:39 03:39 03:39 Hgb Hct Lymph % (Auto) Lymph # Seg Neutrophils % Seg Neutrophils # PT INR APTT D-Dimer Heparin Anti-Xa Level VBG pH 7.304 L Sodium Chloride Carbon Dioxide Creatinine Glucose POC Glucose Hemoglobin A1c Lactic Acid 3.10 H* CK-MB (CK-2) 8.4 H CK-MB (CK-2) Rel Index 7.6 H Troponin T 0.217 H* Albumin Cholesterol 220 H LDL Cholesterol Direct 163 H Ur Specific [place] 11/14/18 11/14/18 11/14/18 03:39 04:04 05:15 Hgb Hct Lymph % (Auto) Lymph # Seg Neutrophils % Seg Neutrophils # PT INR APTT D-Dimer Heparin Anti-Xa Level VBG pH Sodium 133 L Chloride 91.8 L Carbon Dioxide Creatinine Glucose 461 H POC Glucose 321 H Hemoglobin A1c Lactic Acid CK-MB (CK-2) CK-MB (CK-2) Rel Index Troponin T Albumin 3.7 L Cholesterol LDL Cholesterol Direct Ur Specific [place] 1.032 H 11/14/18 11/14/18 11/14/18 05:51 08:08 12:32 Hgb Hct Lymph % (Auto) Lymph # Seg Neutrophils % Seg Neutrophils # PT INR APTT D-Dimer Heparin Anti-Xa Level VBG pH Sodium Chloride Carbon Dioxide Creatinine Glucose POC Glucose 281 H 302 H Hemoglobin A1c 13.3 H Lactic Acid CK-MB (CK-2) CK-MB (CK-2) Rel Index Troponin T Albumin Cholesterol LDL Cholesterol Direct Ur Specific [place] 11/14/18 11/14/18 11/14/18 13:04 17:38 17:59 Hgb Hct Lymph % (Auto) Lymph # Seg Neutrophils % Seg Neutrophils # PT INR APTT D-Dimer Heparin Anti-Xa Level VBG pH Sodium Chloride Carbon Dioxide Creatinine Glucose POC Glucose 313 H Hemoglobin A1c Lactic Acid CK-MB (CK-2) CK-MB (CK-2) Rel Index Troponin T 0.441 H* D 0.572 H* D Albumin Cholesterol LDL Cholesterol Direct Ur Specific [place] 11/14/18 11/14/18 11/15/18 19:48 21:15 00:44 Hgb Hct Lymph % (Auto) Lymph # Seg Neutrophils % Seg Neutrophils # PT 15.3 H INR 1.14 H APTT D-Dimer Heparin Anti-Xa Level VBG pH Sodium Chloride Carbon Dioxide Creatinine Glucose POC Glucose 406 H 313 H Hemoglobin A1c Lactic Acid CK-MB (CK-2) CK-MB (CK-2) Rel Index Troponin T Albumin Cholesterol LDL Cholesterol Direct Ur Specific [place] 11/15/18 11/15/18 11/15/18 03:01 03:01 05:56 Hgb Hct Lymph % (Auto) Lymph # Seg Neutrophils % Seg Neutrophils # PT INR APTT D-Dimer Heparin Anti-Xa Level 1.45 H VBG pH Sodium 135 L Chloride Carbon Dioxide Creatinine 0.6 L Glucose 249 H POC Glucose 218 H Hemoglobin A1c Lactic Acid CK-MB (CK-2) CK-MB (CK-2) Rel Index Troponin T Albumin Cholesterol LDL Cholesterol Direct Ur Specific [place] 11/15/18 11/15/18 11/15/18 09:40 12:07 16:11 Hgb Hct Lymph % (Auto) Lymph # Seg Neutrophils % Seg Neutrophils # PT INR APTT D-Dimer Heparin Anti-Xa Level VBG pH Sodium Chloride Carbon Dioxide Creatinine Glucose POC Glucose 216 H 211 H 107 H Hemoglobin A1c Lactic Acid CK-MB (CK-2) CK-MB (CK-2) Rel Index Troponin T Albumin Cholesterol LDL Cholesterol Direct Ur Specific [place] 11/15/18 11/15/18 11/15/18 16:56 17:47 21:44 Hgb Hct Lymph % (Auto) Lymph # Seg Neutrophils % Seg Neutrophils # PT INR APTT D-Dimer Heparin Anti-Xa Level 1.20 H VBG pH Sodium Chloride Carbon Dioxide Creatinine Glucose POC Glucose 197 H 226 H Hemoglobin A1c Lactic Acid CK-MB (CK-2) CK-MB (CK-2) Rel Index Troponin T Albumin Cholesterol LDL Cholesterol Direct Ur Specific [place] 11/16/18 11/16/18 11/16/18 04:53 08:41 09:26 Hgb Hct Lymph % (Auto) Lymph # Seg Neutrophils % Seg Neutrophils # PT INR APTT D-Dimer Heparin Anti-Xa Level 0.10 L VBG pH Sodium 136 L Chloride Carbon Dioxide 21 L Creatinine Glucose 355 H POC Glucose 340 H Hemoglobin A1c Lactic Acid CK-MB (CK-2) CK-MB (CK-2) Rel Index Troponin T 0.240 H* D Albumin Cholesterol LDL Cholesterol Direct Ur Specific [place] 11/16/18 11/16/18 11/16/18 12:09 16:16 22:02 Hgb Hct Lymph % (Auto) Lymph # Seg Neutrophils % Seg Neutrophils # PT INR APTT D-Dimer Heparin Anti-Xa Level VBG pH Sodium Chloride Carbon Dioxide Creatinine Glucose POC Glucose 347 H 193 H 231 H Hemoglobin A1c Lactic Acid CK-MB (CK-2) CK-MB (CK-2) Rel Index Troponin T Albumin Cholesterol LDL Cholesterol Direct Ur Specific [place] 06/16/19 06/16/19 06/16/19 08:37 11:09 11:40 Hgb Hct Lymph % (Auto) Lymph # Seg Neutrophils % Seg Neutrophils # PT INR APTT D-Dimer Heparin Anti-Xa Level VBG pH Sodium Chloride Carbon Dioxide Creatinine 0.6 L Glucose 240 H POC Glucose 222 H 257 H Hemoglobin A1c Lactic Acid CK-MB (CK-2) CK-MB (CK-2) Rel Index Troponin T Albumin Cholesterol LDL Cholesterol Direct Ur Specific [place] 11/17/18 11/17/18 11/18/18 16:28 20:45 04:09 Hgb Hct Lymph % (Auto) Lymph # Seg Neutrophils % Seg Neutrophils # PT INR APTT D-Dimer Heparin Anti-Xa Level VBG pH Sodium Chloride Carbon Dioxide Creatinine 0.6 L Glucose 197 H POC Glucose 202 H 263 H Hemoglobin A1c Lactic Acid CK-MB (CK-2) CK-MB (CK-2) Rel Index Troponin T Albumin Cholesterol LDL Cholesterol Direct Ur Specific [place] 11/18/18 11/18/18 11/18/18 07:10 07:34 12:34 Hgb Hct Lymph % (Auto) Lymph # Seg Neutrophils % Seg Neutrophils # PT INR APTT D-Dimer Heparin Anti-Xa Level VBG pH Sodium Chloride Carbon Dioxide Creatinine Glucose POC Glucose 133 H 254 H Hemoglobin A1c Lactic Acid CK-MB (CK-2) CK-MB (CK-2) Rel Index Troponin T 0.261 H* Albumin Cholesterol LDL Cholesterol Direct Ur Specific [place] 11/18/18 16:37 Hgb Hct Lymph % (Auto) Lymph # Seg Neutrophils % Seg Neutrophils # PT INR APTT D-Dimer Heparin Anti-Xa Level VBG pH Sodium Chloride Carbon Dioxide Creatinine Glucose POC Glucose 305 H Hemoglobin A1c Lactic Acid CK-MB (CK-2) CK-MB (CK-2) Rel Index Troponin T Albumin Cholesterol LDL Cholesterol Direct Ur Specific [place]
--- NOTE | 2018-11-22 04:15 | Consultation ---
PULMONARY CRITICAL CARE CONSULT NOTE CONSULTING PHYSICIAN: Dr. Cheng. REASON FOR CONSULTATION: Saddle pulmonary embolus. CHIEF COMPLAINT AND HISTORY OF PRESENT ILLNESS: The patient is a 43-year-old female with past medical history significant amongst other things for being morbidly obese, also history of peripheral vascular disease, now status post bilateral lower extremity amputations with bursitis. Came into the Emergency Room with multiple complaints. She complained of nausea and vomiting that has been going on for about a week and a half. She had recently been evaluated in the [facility]. There was a possible urinary tract infection that was treated. She came in complaining also of shortness of breath, lightheadedness, dizziness, feeling like she was about to pass out, which is constant. She complained also of right upper extremity weakness and numbness that started the night before presentation. She was evaluated in the Emergency Room. As part of the evaluation, a venous thromboembolic disorder workup was done and CT angiogram of her chest was done that showed bilateral pulmonary embolisms with a saddle component. We are asked to assist with management. When I stopped by to see her, the patient was resting peacefully in bed. There has been no gross bleeding. The patient did not receive TPA. She had, however, been started on a heparin drip and was tolerating it well. She denied any gross hemoptysis. She denied any gross hematuria. Denied any acute chest pain. This really is as much of the history of presentation as I have. PAST MEDICAL HISTORY: Again, significant for a diagnosis of peripheral vascular disease, morbid obesity, diabetes type 2. PAST SURGICAL HISTORY: She has had bilateral [id number] amputations. History of C-sections x 2. MEDICATIONS: She was on at the time I stopped by to see her were reviewed. Pertinent medications included the following: She was on Tylenol 650 mg p.o. q. 4 hours p.r.n. mild pain or fevers greater than 100.5 degrees Fahrenheit, aspirin 325 mg p.o. daily, Lipitor 40 mg p.o. at bedtime, p.r.n. Dulcolax, Pepcid 20 mg p.o. b.i.d., IV heparin was going according to the PE protocol, Lantus insulin 35 units subcutaneous at bedtime. Insulin via sliding scale, Reglan 10 mg p.o. q. 6 hours p.r.n. nausea and vomiting, Zofran 4 mg IV q. 8 hours p.r.n. nausea and vomiting. ALLERGIES: No known drug allergies. DIET: Morbidly obese, BMI of 52. Denies acute weight loss or gain preceding few weeks to months. FAMILY AND SOCIAL HISTORY: Lives in the community. Denies any history of tobacco use or abuse whatsoever. She does drink alcohol occasionally. Denies illicit drug use or abuse. REVIEW OF SYSTEMS: She had the dizziness. No overt loss of consciousness. No new onset seizures. She has the right upper extremity numbness; however, no paralysis on the right upper extremity. She denies polydipsia, polyuria. Denies any new rashes on her body. Denies any heat or cold intolerance. Denies any new onset seizures. Denies epistaxis. Denies any new visual changes, no eye pain, no odynophagia. Denies any new arthralgias or myalgias. Complete 13-system review of systems obtained. Pertinent positives and/or negatives as in body of history above, otherwise they are noncontributory. PHYSICAL EXAMINATION: VITAL SIGNS: At presentation, she was afebrile, temperature 98.2 degrees Fahrenheit, pulse of 94, respiratory rate 13, blood pressure 160/100, O2 sats were 99%, inspired oxygen concentration at that time was not recorded. When I stopped by to see her, O2 sats were 98%; however, that was on 2 liters nasal cannula. GENERAL: She is a morbidly obese female, normocephalic, atraumatic. Talking to me in mildly interrupted sentences with mild respiratory distress at rest. HEAD, EYES, EARS, NOSE AND THROAT: She is anicteric. No conjunctival erythema. Oropharynx is moist. She is a Mallampati #3 to #4 oropharynx. Large neck circumference. No jugular venous distention. Grossly, no palpable lymph nodes in the supraclavicular or submandibular lymph node chains. LUNGS: Auscultation of both lung cross distant lung breath sounds likely due to the obesity. Diminished breath sounds. Scant inspiratory rales, no wheezing. HEART: Heart sounds 1 and 2 are heard. They were regular in rate and rhythm at the time of my evaluation without overt rubs or murmurs. ABDOMEN: Soft, full, bowel sounds are positive, nontender. No palpable hepatosplenomegaly. EXTREMITIES: She has full range of motion; however, she does have the [id number] amputations bilaterally. The skin is of normal turgor without overt cellulitis or rash. NEUROLOGIC: At the time of my evaluation, pupils were equal, round, reactive to light and accommodation. Extraocular muscle and movements were intact. She moves all 4 extremities spontaneously. Right upper extremity and left upper extremity power really was about 4-5/5 bilaterally. She did have some numbness to the right upper extremity. From a psychotic standpoint, her mood was appropriate considering the circumstances. Affect was anxious. LABORATORY DATA: From my review were as follows: Admission white cell count 9800, hemoglobin 14.9, hematocrit 44.8, platelet count 215. INR 0.94. D-dimer 5514. Serum sodium 133, potassium 4.8, chloride 92, bicarbonate 24, BUN 13, creatinine 0.8, glucose was 461. Lactic acid level was elevated at 3.1. Liver function tests essentially within normal limits. Troponin was elevated at 0.217. LDL cholesterol was elevated at 163. Urinalysis was negative for nitrites and leukocyte esterase. She was spilling glucose in her urine. Two sets of blood cultures have been drawn, no growth to date. I have reviewed the CT angio. I do see the bilateral filling defects certainly consistent with pulmonary emboli as well as the saddle component. The chest x-ray showed some degree of scoliosis, otherwise is unremarkable, perhaps borderline cardiomegaly. It is an AP film. ASSESSMENT: 1. Acute hypoxemic respiratory failure. 2. Acute bilateral pulmonary emboli with moderate clot burden. 3. History of peripheral vascular disease. 4. Chest pain, now improved. 5. Morbid obesity. 6. Mild acidosis at presentation. 7. Hyponatremia, mild. 8. Lactic acidosis. 9. Elevated serum troponin, non-ST elevation myocardial infarction. PLAN: We do agree with IV heparin therapy. When you do the risk-benefit ratio, we certainly do need to treat for PE. There may be a non-ST elevation ME going on; however, this is more likely due to right heart strain. A 2D echocardiogram is in order. Cardiology evaluation is in order. The patient is being evaluated by Vascular Surgery and that is appropriate as she may benefit from an ulnar catheter-directed thrombolytic or clot extraction procedure. Oxygen will be maintained to keep sats greater than or equal to about 90%. Aspiration precautions will be maintained. Chronic kidney disease medications will be continued. Mobility protocol for pressure ulcer prophylaxis will be instituted. She is appropriately on GI prophylaxis. Flu and pneumonia vaccination will be addressed per protocol. Thank you very much for the consult. She will benefit from serial H and serial and serial neuro checks in light of neurologic symptoms and the MRI that suggest subacute stroke. We will follow along. We will make further recommendations as picture progresses/becomes clearer. JOB# [id number] [place]/[facility]
[2018-11-24] MEDS ORDERED: ELIQUIS PO SCH (10:00)
== END 2018-11-18 19:18 | disposition home health service (06) | DRG 280 ==
LOC: ED 02:07 → 4A 04:57 → IMCU 20:29 → 4A 11-17 18:21
PROVIDERS: ADMIT Internal Medicine; ATTEND Internal Medicine
DX: I21.A1 Myocardial infarction type 2 (principal); E11.00 Type 2 diabetes mellitus with hyperosmolarity without nonketotic hyperglycemic-hyperosmolar coma (NKHHC); I26.92 Saddle embolus of pulmonary artery without acute cor pulmonale; I50.43 Acute on chronic combined systolic (congestive) and diastolic (congestive) heart failure; I63.9 Cerebral infarction, unspecified; E87.2 Acidosis; E87.1 Hypo-osmolality and hyponatremia; Z68.43 Body mass index [BMI] 50.0-59.9, adult; Q21.1 Atrial septal defect; G81.91 Hemiplegia, unspecified affecting right dominant side; R11.2 Nausea with vomiting, unspecified; E66.01 Morbid (severe) obesity due to excess calories; E11.51 Type 2 diabetes mellitus with diabetic peripheral angiopathy without gangrene; E86.0 Dehydration; E78.5 Hyperlipidemia, unspecified; M54.12 Radiculopathy, cervical region; Z91.14 Patient's other noncompliance with medication regimen; Z79.4 Long term (current) use of insulin; Z86.718 Personal history of other venous thrombosis and embolism; Z89.511 Acquired absence of right leg below knee; Z89.512 Acquired absence of left leg below knee
CPT/HCPCS: 36415; 70450; 70544; 70551; 71045; 71275; 74176; 80048; 80053; 80061; 81001; 82140; 82271; 82550; 82553; 82805; 82962; 83036; 83735; 83880; 84484; 85014; 85018; 85025; 85049; 85379; 85520; 85610; 85670; 85730; 87040; 87086; 93005; 93010; 93306; 93880; 93970; 94760; 96374; 99291; G0378; A9270-GY; J1644; J1650; J1815; J2405; J7030; J7040; Q9967

== ENCOUNTER 2018-12-17 11:35 | Outpatient (CLI) | payer MEDICARE ==
--- NOTE | 2018-12-17 14:20 | Ultrasound Report ---
BILATERAL DIGITAL DIAGNOSTIC MAMMOGRAM WITH CAD 12/17/2018 RIGHT BREAST ULTRASOUND INDICATION: Follow-up left idiopathic granulomatous mastitis. TECHNIQUE: Digital bilateral mammographic imaging was performed. This examination was interpreted wi th the benefit of Computer-Aided Detection (CAD) analysis. COMPARISON: 08/12/2018 left mammogram and left breast ultrasound FINDINGS: Breast Density: The breasts are heterogeneously dense, which may obscure small masses. There is no evidence of dominant mass, suspicious calcifications or architectural distortion in eithe r breast. 2 left periareolar biopsy clips and no mass at the clips. Ultrasound Findings: Ultrasound examination of the nipple-areolar complex and the retroareolar area o f the left breast demonstrate resolution of previously identified subareolar solid mass. The nipple i s slightly enlarged with a questionable 12 mm slightly hypoechoic mass at the nipple. IMPRESSION: Probably benign residual inflammatory changes in the left nipple. Negative right breast. Recommend 6 month follow-up left targeted breast ultrasound to reevaluate the nipple-areolar complex. BI-RADS Category 3: Probably Benign. A "normal" or negative report should not discourage follow up or biopsy of a clinically significant f inding. A written summary of these findings will be mailed to the patient. The patient will be entered into a mammography reporting system which will generate a reminder letter for the patient's next appointmen t at the appropriate interval. FURTHER INFORMATION: According to the [employer], yearly mammograms are recommend ed starting at age 40 and continuing as long as a woman is in good health. Breast MRI is recommended for women with an approximately 20-25% or greater lifetime risk of breast cancer, including women wi th a strong family history of breast or ovarian cancer and women who have been treated for Hodgkin's disease. Signer Name: William Boyce MD Signed: 12/17/2018 2:16 PM Workstation Name: [id number]
== END 2018-12-17 11:36 | disposition home or self-care (01) ==
LOC: SPVWC 11:35
PROVIDERS: ATTEND Surgery
DX: N63.20 Unspecified lump in the left breast, unspecified quadrant (principal); E66.9 Obesity, unspecified; E11.9 Type 2 diabetes mellitus without complications
CPT/HCPCS: 77066